=== PATIENT | female | born 1945 | race African-American/Black ===

== ENCOUNTER 2016-12-19 08:56 | Emergency (ER) | payer MEDICARE, MEDICAID ==
[~2016-12-19] VITALS: Ht 160 cm; Wt 72.6 kg
[~2016-12-19 08:56] MED LIST: ACETAMINOPHEN325 M1 ORAL; ALBUTEROL2.5 MG/3 M HHN; ASPIR 8181 MG ORAL; AZITHROMYCIN250 MG ORAL; BACTRIM DS TAB1 EAC1 ORAL; BACTRIM-DS1 EA ORAL; BENADRYL25 MG ORAL; BLEPH-105 ML OP; CIPROFLOXACIN500 M2 ORAL; DESYREL50 MG PO; FOLIC ACID1 MG ORAL; GUAIFENESIN-CO118 M1 ORAL; HYDROCODON-ACE1 EA16 PO; LEVAQUIN250 M1 ORAL; LIBRIUM25 MG ORAL; LOPRESSOR25 M1 ORAL; LOPRESSOR25 M1 PO; MACROBID100 MG ORAL; METOPROLOL SUCC25 MG ORAL; NITROFURANTOIN100 M2 ORAL; NORCO 5-325 TA1 EAC1 ORAL; NORCO 5-325 TA1 EACH ORAL; NORVASC5 MG ORAL; PERMETHRIN60 GM TOPIC; PREDNISONE20 MG ORAL; PROAIR HFA8.5 GM; PROTONIX40 MG ORAL; RANITIDINE HCL150 M2 PO; REGLAN10 MG ORAL; THIAMINE HCL100 MG ORAL; UNOBMED; VICODIN ES 7.51 EAC1 PO; VICODIN ES 7.51 EACH ORAL
[2016-12-19 09:13] VITALS: BP 167/98
[2016-12-19 09:46] LABS: APPEARANCE,URINE SLIGHTLY CLOUDY; KETONES,URINE 1+ (NEGATIVE); LEUKOCYTE ESTERASE ,URINE 3+ (NEGATIVE); NITRITE,URINE NEGATIVE (NEGATIVE); PH,URINE 5 (4.5-8.0); PROTEIN,URINE 3+ (NEGATIVE); UROBILINOGEN,URINE 1 MG/DL (0.0-1.0)
[2016-12-19 09:55] LABS: BACTERIA,URINE FEW /HPF; ICTOTEST NEGATIVE; SQUAMOUS EPITHELIAL CELL,UR FEW /LPF (NONE/OCC); WBC,URINE 40-60 /HPF (0 - 2)
[2016-12-19] MEDS ORDERED: BACTRIM DS TAB1 EAC1 ORAL (10:01)
[2016-12-19] MEDS ORDERED: VENTOLIN HFA18 GM INH (10:07)
[2016-12-19 10:15] VITALS: BP 159/99
--- NOTE | 2016-12-19 10:49 | Emergency Room Report ---
History of Present Illness General Chief Complaint: Female Urogenital Problems Source: Patient, Medical Record Present Illness HPI [id number] [employer] patient with c/o dysuria for 1-2 days. No polyuria or flank pain or fever/chills nor abd pain, nausea/vomiting, diarrhea. History of UTI Allergic to many Abx Last Urine Cx shows sensitivity to Bactrim Also requests Ventolin MDI refill. Allergies: Coded Allergies: CIPROFLOXACIN (Unverified Allergy, Unknown, 04/28/14) NITROFURANTOIN (Verified Allergy, Unknown, 02/11/16) PENICILLINS (Verified Allergy, Unknown, 02/11/16) Patient History Past Medical History: see triage record, old chart reviewed, COPD Past Surgical History: none Pertinent Family History: none Social History: Denies: alcohol use, drug use, smoking Now: No Immunizations: UTD Reviewed Nursing Documentation: PMH: Agreed, PSxH: Agreed Nursing Documentation-PMH Past Medical History: No History, Except For Hx Cardiac Problems: Yes - 'Skipped beat' Hx Hypertension: Yes Hx Pacemaker: No Hx Asthma: Yes Hx Diabetes: No Hx Cancer: No Hx Gastrointestinal Problems: No Hx Neurological Problems: Yes Hx Dizziness: Yes Hx Weakness: Yes Review of Systems All Other Systems: negative except mentioned in HPI Physical Exam Vital Signs Date Time Temp Pulse Resp B/P Pulse Ox O2 Delivery O2 Flow Rate FiO2 12/19/16 09:13 98.8 16 167/98 97 Room Air 12/19/16 09:13 72 Sp02 EP Interpretation: reviewed, abnormal General Appearance: normal inspection, well appearing, no apparent distress, alert, GCS 15, non-toxic Head: normocephalic, atraumatic Eyes: bilateral eye EOMI, bilateral eye PERRL ENT: normal ENT inspection, hearing grossly normal, normal voice Neck: normal inspection, full range of motion, supple, no bony tend Respiratory: normal inspection, lungs clear, normal breath sounds, no respiratory distress, no retraction, no accessory muscle use, no wheezing, speaking full sentences Cardiovascular #1: regular rate, rhythm, no edema Gastrointestinal: normal inspection, normal bowel sounds, non tender, soft, no guarding, no hernia Genitourinary: no CVA tenderness Musculoskeletal: normal inspection, back normal, normal range of motion, David' s Sign negative Neurologic: normal inspection, alert, oriented x3, responsive, packing machine feeder III-XII nml as tested, motor strength/tone normal, speech normal Psychiatric: normal inspection, judgement/insight normal, mood/affect normal Skin: normal inspection, normal color, no rash Medical Decision Making Diagnostic Impression: Primary Impression: UTI (urinary tract infection) Qualified Codes: N30.01 - Acute cystitis with hematuria Additional Impression: Medication refill ER Course UTI - VSS. Afebrile. Doubt urosepsis - Rx Bactrim - PMD followup Ventolin refilled - Not hypoxic - No wheezing - Not in acute asthma/COPD exacerbation Last Vital Signs Date Time Temp Pulse Resp B/P Pulse Ox O2 Delivery O2 Flow Rate FiO2 12/19/16 10:15 69 18 159/99 100 Room Air 12/19/16 09:13 98.8 Status: improved Disposition: HOME, SELF-CARE Condition: Improved Scripts Albuterol Sulfate (VENTOLIN HFA) 18 Gm Hfa.aer.ad 1 PUFF INH EVERY 6 HOURS, #18 GM 0 Refills Prov: MEGAN GARCIA M.D. 12/19/16 Trimethoprim/Sulfamethoxazole 160/800* (BACTRIM DS TABLET*) 1 Each Tablet 1 TAB ORAL Q12H for 5 Days, #10 TAB 0 Refills Prov: MEGAN GARCIA M.D. 12/19/16 Referrals: SIGIFERDO LAZCANO (PCP) Patient Instructions: Urinary Tract Infection MEGAN GARCIA M.D. Dec 19, 2016 10:49
== END 2016-12-19 10:17 | disposition home or self-care (01) ==
LOC: EMR 09:31
DX: Z76.0 Encounter for issue of repeat prescription (principal); N30.01 Acute cystitis with hematuria; Z88.0 Allergy status to penicillin; Z88.8 Allergy status to other drugs, medicaments and biological substances; J44.9 Chronic obstructive pulmonary disease, unspecified; I10 Essential (primary) hypertension
CPT/HCPCS: 81003; 87086; 87181; 99284

== ENCOUNTER 2017-04-18 16:45 | Inpatient (IN) | payer MEDICARE, MEDICAID ==
[~2017-04-18] VITALS: Ht 160 cm; Wt 56.7 kg
[~2017-04-18 16:45] MED LIST changes: +VENTOLIN HFA18 GM INH
[2017-04-18 17:10] VITALS: BP 141/69
[2017-04-18] MEDS ORDERED: Vancomycin 1 GM in NS 275 ML IV ONE (17:15)
--- NOTE | 2017-04-18 17:28 | Emergency Room Report ---
History of Present Illness General Chief Complaint: General Complaint Source: Patient, Medical Record (Franny Floyd) Present Illness HPI 71-year-old female presents to the emergency department complaining of 10 out of 10 in severity pain, swelling, erythema and increased temperature to the bilateral lower extremities primarily on the left side since yesterday. Patient denies trauma or fall. Patient reports posterior calf tenderness. Patient also reports that she has had an itchy rash with several lesions on the bilateral extremities x3 days. Patient reports chills she denies fevers. Denies lesions/rashes elsewhere on the body. Denies new medications or body washes or creams. Denies swelling of the lips, tongue , throat or airway. Denies wheezing, or shortness of breath. Denies recent travel, recent illness or ill contacts. denies blisters, oral lesions, or sloughing of the skin. Denies SOB, Dyspnea, CP, Palpitations, LOC, AMS, dizziness, Changes in Vision, Sensation, paresthesias, or a sudden severe headache. (Franny Floyd) Allergies: Coded Allergies: CIPROFLOXACIN (Unverified Allergy, Unknown, 04/28/14) NITROFURANTOIN (Verified Allergy, Unknown, 02/11/16) PENICILLINS (Verified Allergy, Unknown, 02/11/16) Patient History Past Medical History: see triage record Past Surgical History: none Pertinent Family History: none Reviewed Nursing Documentation: PMH: Agreed, PSxH: Agreed (Franny Floyd) Nursing Documentation-PMH Past Medical History: No History, Except For Hx Cardiac Problems: Yes - 'Skipped beat' Hx Hypertension: Yes Hx Pacemaker: No Hx Asthma: Yes Hx Diabetes: No Hx Cancer: No Hx Gastrointestinal Problems: No Hx Neurological Problems: Yes Hx Dizziness: Yes Hx Weakness: Yes (Franny Floyd) Review of Systems All Other Systems: negative except mentioned in HPI (Franny Floyd) Physical Exam Vital Signs Date Time Temp Pulse Resp B/P (MAP) Pulse Ox O2 Delivery O2 Flow Rate FiO2 04/18/17 16:49 100.2 86 18 159/86 97 Room Air Sp02 EP Interpretation: reviewed, normal General Appearance: no apparent distress, alert, GCS 15, non-toxic Head: normocephalic, atraumatic Eyes: bilateral eye normal inspection, bilateral eye PERRL ENT: hearing grossly normal, normal voice Neck: full range of motion Respiratory: lungs clear, normal breath sounds, speaking full sentences Cardiovascular #1: regular rate, rhythm, normal capillary refill, edema - non pitting edema bilaterally Cardiovascular #2: 1+ dorsalis pedis (R), 1+ dorsalis pedis (L) Musculoskeletal: back normal, gait/station normal, normal range of motion, inflammation - bilateral feet and ankles, erythema increased temperature to palpation, edema noted. , tender - bilateral feet, ankles, and posterior calves Neurologic: alert, oriented x3, responsive, motor strength/tone normal, sensory intact, speech normal Skin: warm/dry, well hydrated, rash - multiple small erythematous papules, non blanching on the bilateral LE's with some excoriations noted., other - erythema , increased temperature to palpation bilateral feet and ankles. Lymphatic: no adenopathy (Franny Floyd) Medical Decision Making [place] Attestation Dr. Cage is my supervising Physician whom patient management has been discussed with. (Franny FloydA.) Medicare Attestation The history of Leeroy Gamboa has been reviewed and management options for her have been examined and discussed by Ganesh Cage. I have personally examined and interviewed the patient. (GANESH CAGE M.D.) Diagnostic Impression: Primary Impression: Cellulitis and abscess of left lower extremity Additional Impressions: Cellulitis and abscess of right lower extremity UTI (urinary tract infection) Qualified Codes: N30.01 - Acute cystitis with hematuria Rash and other nonspecific skin eruption ER Course 71-year-old female presents to the emergency department complaining of 10 out of 10 in severity pain, swelling, erythema and increased temperature to the bilateral lower extremities primarily on the left side since yesterday. Patient denies trauma or fall. Patient reports posterior calf tenderness. Patient also reports that she has had an itchy rash with several lesions on the bilateral extremities x3 days. Patient reports chills she denies fevers. Denies SOB, Dyspnea, CP, Palpitations, LOC, AMS, dizziness, Changes in Vision, Sensation, paresthesias, or a sudden severe headache. Ddx considered but are not limited to cellulitis, DVT, venous stasis, CHF, fracture, d/L, Vital signs: are WNL, pt. is afebrile H&PE are most consistent with LE Cellulitis, will r/o DVT, and start abx. ORDERS: -- EK BPM NSR - no acute ST changes reviewed by Dr. Cage, his interpretation was scribed by SYDNI Floyd -CBC: unremarkable -CMP: Unremarkable -Lactic acid: WNL - Troponin: WNL -BNP: 231 -Blood cultures: Pending - CK : WNL UA: Positive for UTI -UDS: negative -US Venous Duplex bilateral extremities: Negative for DVT. ED INTERVENTIONS: -IV access - Vancomycin IV DISPOSITION: at this time pt. will be admitted to Dr. Scott for Bilateral Cellulitis Dr. Scott agreed to admit the pt. and to continue pt. care management. Labs Test 04/18/17 17:30 04/18/17 18:24 04/18/17 18:54 White Blood Count 6.4 K/UL (4.8-10.8) Red Blood Count 3.76 M/UL (4.20-5.40) Hemoglobin 11.1 G/DL (12.0-16.0) Hematocrit 37.2 % (37.0-47.0) Mean Corpuscular Volume 99 FL (80-99) Mean Corpuscular Hemoglobin 29.5 PG (27.0-31.0) Mean Corpuscular Hemoglobin Concent 29.8 G/DL (32.0-36.0) Red Cell Distribution Width 14.4 % (11.6-14.8) Platelet Count 249 K/UL (150-450) Mean Platelet Volume 6.3 FL (6.5-10.1) Neutrophils (%) (Auto) 52.3 % (45.0-75.0) Lymphocytes (%) (Auto) 34.3 % (20.0-45.0) Monocytes (%) (Auto) 10.2 % (1.0-10.0) Eosinophils (%) (Auto) 1.6 % (0.0-3.0) Basophils (%) (Auto) 1.6 % (0.0-2.0) Sodium Level 140 MMOL/L (136-145) Potassium Level 3.8 MMOL/L (3.5-5.1) Chloride Level 102 MMOL/L (98-107) Carbon Dioxide Level 25 MMOL/L (21-32) Anion Gap 13 mmol/L (5-15) Blood Urea Nitrogen 5 mg/dL (7-18) Creatinine 0.7 MG/DL (0.55-1.30) Estimat Glomerular Filtration Rate mL/min (>60) Glucose Level 103 MG/DL (74-106) Lactic Acid Level 1.10 mmol/L (0.66-2.22) Calcium Level 9.2 MG/DL (8.5-10.1) Total Bilirubin 0.6 MG/DL (0.2-1.0) Aspartate Amino Transf (AST/SGOT) 31 U/L (15-37) Alanine Aminotransferase (ALT/SGPT) 25 U/L (12-78) Alkaline Phosphatase 70 U/L (46-116) Total Creatine Kinase 127 U/L (26-308) Creatine Kinase MB 1.3 NG/ML (0.0-3.6) Creatine Kinase MB Relative Index 1.0 Troponin I 0.003 ng/mL (0.000-0.056) Pro-B-Type Natriuretic Peptide 236 pg/mL (0-125) Total Protein 8.1 G/DL (6.4-8.2) Albumin 3.4 G/DL (3.4-5.0) Globulin 4.7 g/dL Albumin/Globulin Ratio 0.7 (1.0-2.7) Urine Color Yellow Urine Appearance Cloudy Urine pH 6 (4.5-8.0) Urine Specific [place] 1.010 (1.005-1.035) Urine Protein 2+ (NEGATIVE) Urine Glucose (UA) Negative (NEGATIVE) Urine Ketones 1+ (NEGATIVE) Urine Occult Blood 3+ (NEGATIVE) Urine Nitrite Negative (NEGATIVE) Urine Bilirubin Negative (NEGATIVE) Urine Urobilinogen 4 MG/DL (0.0-1.0) Urine Leukocyte Esterase 3+ (NEGATIVE) Urine RBC 2-4 /HPF (0 - 2) Urine WBC Tntc /HPF (0 - 2) Urine Squamous Epithelial Cells Moderate /LPF (NONE/OCC) Urine Bacteria Many /HPF (NONE) Urine Opiates Screen Negative (NEGATIVE) Urine Barbiturates Screen Negative (NEGATIVE) Phencyclidine (PCP) Screen Negative (NEGATIVE) Urine Amphetamines Screen Negative (NEGATIVE) Urine Benzodiazepines Screen Negative (NEGATIVE) Urine Cocaine Screen Negative (NEGATIVE) Urine Marijuana (THC) Screen Negative (NEGATIVE) (Franny Floyd) ER Course Patient's exam is concerning for cellulitis. Please refer to my physician assistant womens volleyball coach Rubina for this and physical. I also discuss his case with Dr. Zacarias Scott. Patient will be admitted to [facility] further treatment (GANESH CAGE M.D.) EKG Diagnostic Results EP Interpretation: Dr. Cage Rate: normal Rhythm: NSR ST Segments: no acute changes ASA given to the pt in ED: No PA Scribe Text Dr. Cage's interpretation has been scribed by SYDNI Floyd. (Franny Floyd) Chest X-Ray Diagnostic Results Chest X-Ray Diagnostic Results : Chest X-Ray Ordered: Yes # of Views/Limited/Complete: 1 View Indication: Other - LE edema EP Interpretation: Yes PA Xray: Interpretation reviewed, by supervising MD, and agrees with findings. Interpretation: no consolidation, no effusion, no pneumothorax, no acute cardiopulmonary disease Impression: No acute disease Electronically Signed by: Franny Floyd PA-C (Franny Floyd) Last Vital Signs Date Time Temp Pulse Resp B/P (MAP) Pulse Ox O2 Delivery O2 Flow Rate FiO2 04/18/17 16:49 100.2 86 18 159/86 97 Room Air (Franny Floyd) Status: improved (GANESH CAGE M.D.) Disposition: ADMITTED INPATIENT Condition: Serious Franny Floyd Apr 18, 2017 17:28 GANESH CAGE M.D. Apr 18, 2017 22:02
[2017-04-18 18:00] VITALS: BP 132/71
[2017-04-18 18:06] LABS: BASOPHILS % (AUTO) 1.6 % (0.0-2.0); EOSINOPHILS % (AUTO) 1.6 % (0.0-3.0); HEMATOCRIT 37.2 % (37.0-47.0); HEMOGLOBIN 11.1 G/DL (12.0-16.0); LYMPHOCYTES % (AUTO) 34.3 % (20.0-45.0); MEAN CORPUSCULAR VOLUME 99 FL (80-99); MONOCYTES % (AUTO) 10.2 % (1.0-10.0); NEUTROPHILS % (AUTO) 52.3 % (45.0-75.0); PLATELET COUNT 249 K/UL (150-450); RED BLOOD COUNT 3.76 M/UL (4.20-5.40); RED CELL DISTRIBUTION WIDTH 14.4 % (11.6-14.8); WHITE BLOOD COUNT 6.4 K/UL (4.8-10.8)
[2017-04-18 18:37] LABS: ALANINE AMINOTRANSFERASE 25 U/L (12-78); ALBUMIN 3.4 G/DL (3.4-5.0); ALBUMIN/GLOBULIN RATIO 0.7 (1.0-2.7); ALKALINE PHOSPHATASE 70 U/L (46-116); ANION GAP 13 mmol/L (5-15); ASPARTATE AMINO TRANSFERASE 31 U/L (15-37); BILIRUBIN,TOTAL 0.6 MG/DL (0.2-1.0); BLOOD UREA NITROGEN 5 mg/dL (7-18); CALCIUM 9.2 MG/DL (8.5-10.1); CARBON DIOXIDE 25 MMOL/L (21-32); CHLORIDE 102 MMOL/L (98-107); CKMB 1.3 NG/ML (0.0-3.6); CREATINE KINASE 127 U/L (26-308); CREATININE 0.7 MG/DL (0.55-1.30); POTASSIUM 3.8 MMOL/L (3.5-5.1); SODIUM 140 MMOL/L (136-145)
[2017-04-18] MEDS ORDERED: Norco 5mg/325mg tab ORAL ONE (19:00)
[2017-04-18 19:02] LABS: APPEARANCE,URINE CLOUDY; BILIRUBIN, URINE NEGATIVE (NEGATIVE); GLUCOSE, URINE (UA) NEGATIVE (NEGATIVE); KETONES,URINE 1+ (NEGATIVE); LEUKOCYTE ESTERASE ,URINE 3+ (NEGATIVE); NITRITE,URINE NEGATIVE (NEGATIVE); PH,URINE 6 (4.5-8.0); PROTEIN,URINE 2+ (NEGATIVE); UROBILINOGEN,URINE 4 MG/DL (0.0-1.0)
[2017-04-18 19:04] LABS: COLOR,URINE YELLOW
[2017-04-18] MEDS ORDERED: Vancomycin 1gm inj IVPB ONE (19:07)
[2017-04-18 19:45] VITALS: BP 138/72
[2017-04-18] MEDS ORDERED: Zolpidem 5mg tab ORAL PRN (21:15)
[2017-04-18] MEDS ORDERED: Metoclopramide 10mg/2ml Inj IVP PRN (21:30)
[2017-04-18] MEDS ORDERED: chlordiazePOXIDE 25mg Cap ORAL PRN (21:30)
[2017-04-18] MEDS ORDERED: Piperacillin/Tazobactam 3.375 GM in D5W 110 ML IVPB ONE (22:00)
[2017-04-18] MEDS ORDERED: Levofloxacin 500mg tab ORAL ONE (22:00)
[2017-04-18 23:00] VITALS: BP 137/74
[2017-04-18] MEDS: D5 1/2NS 1,000 ML IV SCH (23:48)
[2017-04-19] VITALS: BP 120/67
[2017-04-19] MEDS: Norco 5mg/325mg tab ORAL PRN ×3 (03:00→17:18)
[2017-04-19 04:00] VITALS: BP 132/72
[2017-04-19] MEDS: Vancomycin 750mg/NS 250ml IVPB SCH ×2 (05:04→17:18)
[2017-04-19 07:45] LABS: BASOPHILS % (AUTO) 1.1 % (0.0-2.0); EOSINOPHILS % (AUTO) 2.5 % (0.0-3.0); HEMATOCRIT 34.1 % (37.0-47.0); HEMOGLOBIN 10.9 G/DL (12.0-16.0); LYMPHOCYTES % (AUTO) 22.1 % (20.0-45.0); MEAN CORPUSCULAR VOLUME 98 FL (80-99); MONOCYTES % (AUTO) 11.8 % (1.0-10.0); NEUTROPHILS % (AUTO) 62.6 % (45.0-75.0); PLATELET COUNT 225 K/UL (150-450); RED BLOOD COUNT 3.48 M/UL (4.20-5.40); RED CELL DISTRIBUTION WIDTH 14.1 % (11.6-14.8); WHITE BLOOD COUNT 6.3 K/UL (4.8-10.8)
[2017-04-19 08:32] LABS: ALANINE AMINOTRANSFERASE 19 U/L (12-78); ALBUMIN 2.7 G/DL (3.4-5.0); ALBUMIN/GLOBULIN RATIO 0.6 (1.0-2.7); ALKALINE PHOSPHATASE 64 U/L (46-116); ANION GAP 8 mmol/L (5-15); ASPARTATE AMINO TRANSFERASE 25 U/L (15-37); BILIRUBIN,TOTAL 0.8 MG/DL (0.2-1.0); BLOOD UREA NITROGEN 7 mg/dL (7-18); CALCIUM 8.6 MG/DL (8.5-10.1); CARBON DIOXIDE 27 MMOL/L (21-32); CHLORIDE 106 MMOL/L (98-107); CHOLESTEROL 120 MG/DL (< 200); CREATININE 0.7 MG/DL (0.55-1.30); GAMMA GLUTAMYL TRANSPEPTIDASE 74 U/L (5-85); HDL CHOLESTEROL 80 MG/DL (40-60); PHOSPHORUS 4.1 MG/DL (2.5-4.9); POTASSIUM 3.5 MMOL/L (3.5-5.1); SODIUM 141 MMOL/L (136-145); TRIGLYCERIDES 29 MG/DL (0-200)
[2017-04-19] MEDS: Docusate 100mg cap ORAL SCH ×4 (08:41→21:00)
[2017-04-19] MEDS: Heparin 5000 units/ml inj SUBQ SCH ×2 (08:42→22:02)
[2017-04-19 08:44] VITALS: BP 130/76
--- NOTE | 2017-04-19 09:55 | History & Physical ---
History and Physical History & Physicial Dictation # [id number] SIGIFREDO LAZCANO Apr 19, 2017 09:55
--- NOTE | 2017-04-19 09:55 | History & Physical ---
History and Physical History & Physicial Dictation # [id number] SIGIFREDO LAZCANO Apr 19, 2017 09:55
--- NOTE | 2017-04-19 09:55 | History & Physical ---
History and Physical History & Physicial Dictation # [id number] SIGIFREDO LAZCANO Apr 19, 2017 09:55
--- NOTE | 2017-04-19 10:24 | Diagnostic Imaging Report ---
Indication: PAIN Technique: One view of the chest Comparison: 02/10/2016 Findings: The lungs and pleural spaces are clear. Heart size is normal. Aorta is tortuous. Findings are unchanged Impression: No acute process This agrees with the preliminary interpretation provided by the emergency room physician
--- NOTE | 2017-04-19 10:53 | Wound Care Consultation ---
Wound Assessment Wound Assessment : Wound Number: 1 Wound Present on Admission: Yes New Wound: No Status Change of Wound: No Wound Location Body Site Modif: left, right Wound Location Body Site: leg - thighs and foot Wound Type: discoloration - sacttered maroon/purpel discoloration with inflammation and tenderness Isaac Test: Does not Isaac Edema Degree: 2+ indent readily Percent of Wound Purple/Maroon: 100 Wound Drainage Amount: None Wound Drainage Odor: None/Absent Tissue Surrounding Wound: Erythemic Wound General Appearance: Reddened - purple and maroon Wound Comment #1 Both legs, thigh, buttocks and foot with scattered purplish/maroon discoloration, Skin warm to touch. Noted inflammation and tenderness on both lower legs. Recommendation -Offload both heels -Elevate both lower legs -Keep clean and dry -Optimize nutrition -Assess and f/u with MD for any changes SUSIE NESBITT RN Apr 19, 2017 10:53
[2017-04-19] MEDS ORDERED: Bactrim DS (160mg/800mg) tab ORAL SCH (11:00)
[2017-04-19] MEDS: Thiamine 100mg tab ORAL SCH (11:46)
[2017-04-19 12:14] VITALS: BP 146/97
--- NOTE | 2017-04-19 12:39 | Diagnostic Imaging Report ---
APPROVED REPORT CPT Code: 17173 Present Symptoms Lower Extremity Pain: Bilateral Lower Extremity Edema: Bilateral BILATERAL: Imaging reveals a patent deep venous system bilaterally. There is no evidence of thrombus within the femoral, popliteal or tibial segments. The greater saphenous veins are also within normal limits. Doppler indicates normal spontaneous flow within these segments. The calf veins were not well visualized bilaterally. Incidental finding: Prominent left inguinal lymph node measuring 2.5 cm x 0.7 cm x 1.8 cm.
--- NOTE | 2017-04-19 12:39 | Diagnostic Imaging Report ---
APPROVED REPORT CPT Code: 02011 Present Symptoms Lower Extremity Pain: Bilateral Lower Extremity Edema: Bilateral BILATERAL: Imaging reveals a patent deep venous system bilaterally. There is no evidence of thrombus within the femoral, popliteal or tibial segments. The greater saphenous veins are also within normal limits. Doppler indicates normal spontaneous flow within these segments. The calf veins were not well visualized bilaterally. Incidental finding: Prominent left inguinal lymph node measuring 2.5 cm x 0.7 cm x 1.8 cm.
--- NOTE | 2017-04-19 12:39 | Diagnostic Imaging Report ---
APPROVED REPORT CPT Code: 39779 Present Symptoms Lower Extremity Pain: Bilateral Lower Extremity Edema: Bilateral BILATERAL: Imaging reveals a patent deep venous system bilaterally. There is no evidence of thrombus within the femoral, popliteal or tibial segments. The greater saphenous veins are also within normal limits. Doppler indicates normal spontaneous flow within these segments. The calf veins were not well visualized bilaterally. Incidental finding: Prominent left inguinal lymph node measuring 2.5 cm x 0.7 cm x 1.8 cm.
[2017-04-19] MEDS: Aztreonam Inj 1 GM in D5W 55 ML IVPB SCH ×2 (15:32→22:01)
[2017-04-19 16:15] VITALS: BP 131/87
[2017-04-19] MEDS: D5 1/2NS 1,000 ML IV SCH (17:15)
--- NOTE | 2017-04-19 18:00 | History and Physical Report ---
DATE OF ADMISSION: 04/18/2017 HISTORY OF PRESENT ILLNESS: The patient is known to me, as she is being followed in my office even though very infrequently. The patient is 71-year-old, comes in to emergency room department with pain, swelling, erythema and increased temperature of the bilateral lower extremities, mostly on the left side. The patient denies any trauma or fall. The patient also complains of itchy rash on the lower leg for the past three days. The patient denies using any new medications or any swelling of her face or her tongue. No shortness of breath and no wheeze even though the patient has history of asthma. PAST HISTORY: Significant for hypertension, alcohol abuse, alcoholic liver damage, history of urine tract infection, mild depression and chronic back and leg pain. MEDICATIONS: The patient was supposed to be using includes Lopressor, Protonix, thiamine, Reglan, [place], folic acid and p.r.n. Librium. ALLERGIES: Cipro, nitrofurantoin and penicillin. PHYSICAL EXAMINATION: GENERAL: Awake, not in any distress. VITAL SIGNS: On examination today, the patient pulse rate is 60, respiratory rate is 18, and blood pressure 130/76, and T-max was 99.1 degrees. The patient is afebrile now. HEENT: Head is normocephalic. Sclerae not icteric. NECK: Supple. LUNGS: Rare expiratory wheeze and rhonchi. HEART: Regular. Occasional irregular beats. ABDOMEN: Slightly obese, mild generalized tenderness. EXTREMITIES: Lower extremities, the patient has a rash and erythema and swelling of bilateral lower extremities. Warm to touch with calf tenderness. LABORATORY AND DIAGNOSTIC DATA: Hemoglobin 11.1 and white blood cells 6.4. Electrolytes normal. Urine toxicology is negative and urinalysis 3+ leukocyte esterase and too numerous to count bacteria. IMPRESSION: 1. Cellulitis and abscess of the both lower extremities, left more than right. 2. Urinary tract infection. 3. Rash. 4. Earlier mentioned past history conditions, which includes alcohol abuse, hypertension, mild depression and chronic pain. PLAN: At this point, the patient was given vancomycin. We will start the patient on p.o. Bactrim, local care, slow hydration, stool softener, pain medication, leg elevation and also obtain the results of the duplex of the lower extremities and according to how the patient's condition evolves, we make the proper changes in our future management. Zacarias Scott M.D. DR: PALMA JOB#: [id number] CC:
[2017-04-19 20:00] VITALS: BP 129/82
[2017-04-20] VITALS: BP 149/80
--- NOTE | 2017-04-20 00:30 | Consultation ---
DATE OF CONSULTATION: 04/19/2017 INFECTIOUS DISEASES CONSULTATION PRIMARY ATTENDING PHYSICIAN: Zacarias Scott M.D. REASON FOR CONSULTATION: UTI and cellulitis of lower extremities. HISTORY OF PRESENT ILLNESS: This is a 71-year-old female, who is homeless, admitted yesterday complaining of pain, swelling, and developing rash in the lower extremities. The patient states that she used another person's pants. The symptoms started very fast overnight. She had fever of 100.2 degrees in the ER. PAST MEDICAL HISTORY: Significant for alcohol abuse, fatty liver, chronic back pain, hiatal hernia, diverticulosis, and gallstones. MEDICATIONS: Bactrim, Prevacid, vitamin B1, heparin, Colace, vancomycin, Librium, Reglan, Tylenol, [place], and clonidine. ALLERGIES: Allergic to Cipro, nitrofurantoin, and penicillin. SOCIAL HISTORY: She is homeless, lives in [facility]. Drinks one or two beers a day. Denies alcohol or drug abuse. Not . REVIEW OF SYSTEMS: No fever and no chills at the time of examination. No nausea. No vomiting. She has sometimes problem passing urine with dysuria and frequency. She has pain in lower extremities. PHYSICAL EXAMINATION: VITAL SIGNS: Temperature 97.7 degrees, pulse 68, and blood pressure 146/97. GENERAL APPEARANCE: No acute distress. HEAD AND NECK: [place] conjunctiva. HEART: S1 and S2 regular. LUNGS: Clear. ABDOMEN: Soft and nontender. No organomegaly. EXTREMITIES: She has edema of lower extremities bilaterally and erythema that is confluent in berrios area. NEUROLOGIC: She is awake, alert, and oriented x3. No focal signs. SKIN: There is separate area of erythema and rash in lower extremities without any discharge. LABORATORY AND DIAGNOSTIC DATA: WBC 6.3, hemoglobin 10.9, hematocrit 34.1, and platelets 225,000. Sodium 141, potassium 3.5, chloride 105, bicarbonate 27, BUN 7, creatinine 0.7, and glucose 105. Albumin 2.7. LFTs are in normal limits. Chest x-ray, no acute process. Venous duplex did not show any DVT of legs. IMPRESSION: 1. Cellulitis of lower extremity, likely with rapidly growing organism that starts very fast. 2. Pyuria and bacteruria. Urine culture growing gram-negative rods. 3. Hypertension. 4. Chronic alcohol abuse. 5. Homeless. 6. Penicillin, nitrofurantoin, and Cipro allergy. RECOMMENDATION: Continue with IV vancomycin. We will change Bactrim to Azactam. We will follow up the cultures. At the end of my exam, I thank Dr. Scott for involving me in the care of this patient. Elliott Treviño M.D. DR: Rigoberto JOB#: [id number] CC:
[2017-04-20] MEDS: D5 1/2NS 1,000 ML IV SCH (03:43)
[2017-04-20 04:00] VITALS: BP 131/84
[2017-04-20] MEDS: Aztreonam Inj 1 GM in D5W 55 ML IVPB SCH ×3 (05:10→21:46)
[2017-04-20] MEDS: Vancomycin 750mg/NS 250ml IVPB SCH ×2 (05:57→17:50)
[2017-04-20 08:00] VITALS: BP 121/69
[2017-04-20] MEDS: Docusate 100mg cap ORAL SCH ×3 (08:23→18:14)
[2017-04-20] MEDS: Norco 5mg/325mg tab ORAL PRN ×2 (08:24→15:24)
[2017-04-20] MEDS: Thiamine 100mg tab ORAL SCH (08:24)
[2017-04-20] MEDS: Heparin 5000 units/ml inj SUBQ SCH ×2 (08:25→20:15)
[2017-04-20] MEDS ORDERED: Tubing IV Secondary IV ONE (09:56)
[2017-04-20] MEDS ORDERED: D5 1/2NS 1000ml IV ONE (09:56)
--- NOTE | 2017-04-20 11:20 | Diagnostic Imaging Report ---
Indication: COUGH Technique: One view of the chest Comparison: 04/18/2017 Findings: Inspiration is suboptimal. The heart is borderline enlarged. Lungs and pleural spaces are clear. The aorta is tortuous. Findings are unchanged Impression: No acute process
--- NOTE | 2017-04-20 12:21 | General Progress Note ---
Assessment/Plan Status: unchanged Assessment/Plan 1. Cellulitis of lower extremity, likely with rapidly growing organism that starts very fast. 2. Pyuria and bacteruria. Urine culture growing gram-negative rods. 3. Hypertension. 4. Chronic alcohol abuse. 5. Homeless. 6. Penicillin, nitrofurantoin, and Cipro allergy. Plan: Antibiotics per ID Leg elevation low dose lasix Dc in 2 days? Subjective ROS Limited/Unobtainable: No Constitutional: Reports: malaise Allergies: Coded Allergies: CIPROFLOXACIN (Unverified Allergy, Unknown, 04/28/14) NITROFURANTOIN (Verified Allergy, Unknown, 02/11/16) PENICILLINS (Verified Allergy, Unknown, 02/11/16) Objective Last 24 Hour Vital Signs Date Time Temp Pulse Resp B/P (MAP) Pulse Ox O2 Delivery O2 Flow Rate FiO2 04/20/17 08:00 98.1 58 15 121/69 97 Room Air 04/20/17 04:00 97.7 56 20 131/84 99 Room Air 04/20/17 00:00 97.7 62 20 149/80 99 04/19/17 20:00 97.0 62 20 129/82 97 Room Air 04/19/17 18:17 97.5 04/19/17 16:15 97.5 72 21 131/87 97 Room Air Laboratory Tests 04/20/17 03:50: Vancomycin Level Trough 9.7 Height (Feet): 5 Height (Inches): 3.00 Weight (Pounds): 125 General Appearance: no apparent distress Cardiovascular: normal rate Respiratory/Chest: lungs clear Abdomen: soft Skin: other - LEs swollen , edematous, warm , Objective no other changes SIGIFREDO LAZCANO Apr 20, 2017 12:21
--- NOTE | 2017-04-20 12:22 | Infectious Diseases Prog Note ---
Assessment/Plan Assessment/Plan antibiotics : vancomycin iv, aztreonam A 1. e.coli UTI 2. left leg cellulitis 3. fever improving 4. HTN P 1. continue vancomycin iv, aztreonam 2. will follow up cultures Subjective Constitutional: Denies: fever, chills Respiratory: Reports: shortness of breath, productive cough Gastrointestinal/Abdominal: Denies: nausea, vomiting, diarrhea Musculoskeletal: Reports: pain Allergies: Coded Allergies: CIPROFLOXACIN (Unverified Allergy, Unknown, 04/28/14) NITROFURANTOIN (Verified Allergy, Unknown, 02/11/16) PENICILLINS (Verified Allergy, Unknown, 02/11/16) Objective Vital Signs Last 24 Hour Vital Signs Date Time Temp Pulse Resp B/P (MAP) Pulse Ox O2 Delivery O2 Flow Rate FiO2 04/20/17 08:00 98.1 58 15 121/69 97 Room Air 04/20/17 04:00 97.7 56 20 131/84 99 Room Air 04/20/17 00:00 97.7 62 20 149/80 99 04/19/17 20:00 97.0 62 20 129/82 97 Room Air 04/19/17 18:17 97.5 04/19/17 16:15 97.5 72 21 131/87 97 Room Air Height (Feet): 5 Height (Inches): 3.00 Weight (Pounds): 125 Respiratory/Chest: lungs clear Cardiovascular: normal rate, regular rhythm, no gallop/murmur Abdomen: soft, non tender Extremities: other - + edema, left leg erythema Microbiology Date/Time Source Procedure Growth Status 04/18/17 17:40 Blood Blood Culture - Preliminary NO GROWTH AFTER 24 HOURS Resulted 04/18/17 17:20 Blood Blood Culture - Preliminary NO GROWTH AFTER 24 HOURS Resulted 04/18/17 19:00 Nasal Nares MRSA Culture - Final Staphylococcus Aureus - Mrsa Complete 04/18/17 18:24 Urine,Clean Catch Urine Culture - Final Escherichia Coli Complete Laboratory Tests Test 04/20/17 03:50 Vancomycin Level Trough 9.7 ug/mL (5.0-12.0) ANNELISE FARRAR Apr 20, 2017 12:22
[2017-04-20 12:54] VITALS: BP 149/75
[2017-04-20 16:00] VITALS: BP 139/79
[2017-04-20 20:00] VITALS: BP 145/77
[2017-04-21] VITALS: BP 151/73
[2017-04-21 04:00] VITALS: BP 160/93
[2017-04-21] MEDS: Vancomycin 750mg/NS 250ml IVPB SCH ×2 (05:14→17:47)
[2017-04-21] MEDS: Norco 5mg/325mg tab ORAL PRN ×2 (05:31→15:49)
[2017-04-21] MEDS: Aztreonam Inj 1 GM in D5W 55 ML IVPB SCH ×3 (06:52→21:29)
[2017-04-21 08:08] VITALS: BP 120/74
--- NOTE | 2017-04-21 08:47 | Infectious Diseases Prog Note ---
Assessment/Plan Assessment/Plan A: 1. E.coli UTI 2. left leg cellulitis 3. fever resolved 4. HPN P: Continue Azactam & Vancomycin for now Can be discharged with PO Nitrofurantoin & Doxycycline Subjective ROS Limited/Unobtainable: No Respiratory: Reports: no symptoms Cardiovascular: Reports: no symptoms Gastrointestinal/Abdominal: Reports: no symptoms Genitourinary: Reports: no symptoms Musculoskeletal: Reports: pain, other - in lef berrios Allergies: Coded Allergies: CIPROFLOXACIN (Unverified Allergy, Unknown, 04/28/14) NITROFURANTOIN (Verified Allergy, Unknown, 02/11/16) PENICILLINS (Verified Allergy, Unknown, 02/11/16) Objective Vital Signs Last 24 Hour Vital Signs Date Time Temp Pulse Resp B/P (MAP) Pulse Ox O2 Delivery O2 Flow Rate FiO2 04/21/17 08:08 98.4 54 20 120/74 97 Room Air 04/21/17 05:30 160/93 04/21/17 04:00 97.3 58 19 160/93 99 Room Air 04/21/17 00:00 97.9 58 19 151/73 99 Room Air 04/20/17 20:00 97.6 61 20 145/77 100 Room Air 04/20/17 16:00 98.1 62 18 139/79 100 Room Air 04/20/17 12:54 98.2 56 18 149/75 100 Room Air Height (Feet): 5 Height (Inches): 3.00 Weight (Pounds): 125 General Appearance: no acute distress HEENT: mucous membranes moist Respiratory/Chest: lungs clear Cardiovascular: normal rate Abdomen: soft, non tender Extremities: other - periankle edema more in left side Skin: rash, other - erythema in left berrios decreased, bite flores in lower extremities Neurologic/Psychiatric: alert, oriented x 3, responsive Microbiology Date/Time Source Procedure Growth Status 04/18/17 17:40 Blood Blood Culture - Preliminary NO GROWTH AFTER 48 HOURS Resulted 04/18/17 17:20 Blood Blood Culture - Preliminary NO GROWTH AFTER 48 HOURS Resulted 04/18/17 19:00 Nasal Nares MRSA Culture - Final Staphylococcus Aureus - Mrsa Complete 04/18/17 18:24 Urine,Clean Catch Urine Culture - Final Escherichia Coli Complete Laboratory Tests Test 04/20/17 16:30 Vancomycin Level Trough 9.7 ug/mL (5.0-12.0) Current Medications Medications (Trade) Dose Ordered Sig/Homero Route PRN Reason Start Time Stop Time Status Last Admin Dose Admin Acetaminophen (Tylenol) 650 mg Q6H PRN ORAL Mild Pain/Temp > 100.5 04/18/17 21:30 05/18/17 21:29 04/20/17 20:12 Acetaminophen/ Hydrocodone Bitart ([place] 5/325) 1 tab Q6H PRN ORAL For Pain 04/18/17 21:15 04/25/17 21:14 04/21/17 05:31 Aztreonam 1 gm/ Dextrose 55 ml @ 110 mls/hr Q8HR IVPB 04/19/17 14:00 04/26/17 13:59 04/21/17 06:52 Chlordiazepoxide (Librium) 25 mg Q6H PRN ORAL Agitation 04/18/17 21:30 04/25/17 21:29 Clonidine HCl (Catapres) 0.1 mg Q4H PRN ORAL For High Blood Pressure 04/18/17 21:15 05/18/17 21:14 04/21/17 05:30 Diphenhydramine HCl (Benadryl) 25 mg Q6H PRN ORAL Itching 04/20/17 12:15 05/20/17 12:14 Docusate Sodium (Colace) 100 mg THREE TIMES A DAY ORAL 04/20/17 13:00 05/19/17 08:59 04/20/17 18:14 Heparin Sodium (Porcine) (Heparin 5000 units/ml) 5,000 units EVERY 12 HOURS SUBQ 04/19/17 09:00 05/19/17 08:59 04/20/17 20:15 Lansoprazole (Prevacid) 30 mg DAILY ORAL 04/19/17 11:00 05/19/17 10:59 04/20/17 08:24 Metoclopramide HCl (Reglan) 10 mg Q6H PRN IVP Nausea & Vomiting 04/18/17 21:30 05/18/17 21:29 Potassium Chloride (KCl 10% 40mEq Oral solution) 40 meq DAILY ORAL 04/21/17 09:00 05/21/17 08:59 Thiamine HCl (Vitamin B1) 100 mg DAILY ORAL 04/19/17 11:00 05/19/17 10:59 04/20/17 08:24 Vancomycin HCl (Vanco rx to dose) 1 ea DAILY PRN MISC Per rx protocol 04/18/17 21:15 05/18/17 21:14 Vancomycin/Sodium Chloride 250 ml @ 166.667 mls/hr Q12HR@0500,1700 IVPB 04/19/17 05:00 04/24/17 04:59 04/21/17 05:14 Zolpidem Tartrate (Ambien) 5 mg HSPRN PRN ORAL Insomnia 04/18/17 21:15 04/25/17 21:14 JEANMARIE DELUCA Apr 21, 2017 08:47
[2017-04-21] MEDS: Thiamine 100mg tab ORAL SCH (09:04)
[2017-04-21] MEDS: Docusate 100mg cap ORAL SCH ×3 (09:04→17:47)
[2017-04-21] MEDS: KCl 10% 40mEq/30ml liquid ORAL SCH (09:04)
[2017-04-21] MEDS: Heparin 5000 units/ml inj SUBQ SCH ×2 (09:11→21:31)
[2017-04-21] MEDS ORDERED: NS 275ml ONE (09:44)
[2017-04-21] MEDS ORDERED: D5NS 1000ml IV ONE (09:44)
[2017-04-21 10:24] LABS: BASOPHILS % (AUTO) 2.2 % (0.0-2.0); HEMATOCRIT 35.3 % (37.0-47.0); HEMOGLOBIN 11.6 G/DL (12.0-16.0); LYMPHOCYTES % (AUTO) 32.1 % (20.0-45.0); MEAN CORPUSCULAR VOLUME 98 FL (80-99); MONOCYTES % (AUTO) 12.7 % (1.0-10.0); NEUTROPHILS % (AUTO) 49.1 % (45.0-75.0); PLATELET COUNT 260 K/UL (150-450); RED BLOOD COUNT 3.61 M/UL (4.20-5.40); RED CELL DISTRIBUTION WIDTH 14.2 % (11.6-14.8); WHITE BLOOD COUNT 5.2 K/UL (4.8-10.8)
[2017-04-21 10:38] LABS: ALANINE AMINOTRANSFERASE 20 U/L (12-78); ALBUMIN 2.7 G/DL (3.4-5.0); ALBUMIN/GLOBULIN RATIO 0.6 (1.0-2.7); ALKALINE PHOSPHATASE 66 U/L (46-116); ANION GAP 5 mmol/L (5-15); ASPARTATE AMINO TRANSFERASE 28 U/L (15-37); BILIRUBIN,TOTAL 0.2 MG/DL (0.2-1.0); BLOOD UREA NITROGEN 7 mg/dL (7-18); CALCIUM 9.1 MG/DL (8.5-10.1); CARBON DIOXIDE 29 MMOL/L (21-32); CHLORIDE 104 MMOL/L (98-107); CREATININE 0.7 MG/DL (0.55-1.30); PHOSPHORUS 3.3 MG/DL (2.5-4.9); POTASSIUM 4.7 MMOL/L (3.5-5.1); SODIUM 138 MMOL/L (136-145)
--- NOTE | 2017-04-21 12:01 | General Progress Note ---
Assessment/Plan Status: stable Assessment/Plan 1. Cellulitis of lower extremity, likely with rapidly growing organism that starts very fast. 2. Pyuria and bacteruria. Urine culture growing gram-negative rods. 3. Hypertension. 4. Chronic alcohol abuse. 5. Homeless. 6. Penicillin, nitrofurantoin, and Cipro allergy. Plan: Antibiotics per ID Leg elevation low dose lasix Dc in am? Patient agrees to go to ECF Subjective ROS Limited/Unobtainable: No Allergies: Coded Allergies: CIPROFLOXACIN (Unverified Allergy, Unknown, 04/28/14) NITROFURANTOIN (Verified Allergy, Unknown, 02/11/16) PENICILLINS (Verified Allergy, Unknown, 02/11/16) Objective Last 24 Hour Vital Signs Date Time Temp Pulse Resp B/P (MAP) Pulse Ox O2 Delivery O2 Flow Rate FiO2 04/21/17 08:08 98.4 54 20 120/74 97 Room Air 04/21/17 05:30 160/93 04/21/17 04:00 97.3 58 19 160/93 99 Room Air 04/21/17 00:00 97.9 58 19 151/73 99 Room Air 04/20/17 20:00 97.6 61 20 145/77 100 Room Air 04/20/17 16:00 98.1 62 18 139/79 100 Room Air 04/20/17 12:54 98.2 56 18 149/75 100 Room Air Laboratory Tests 04/20/17 16:30: Vancomycin Level Trough 9.7 04/21/17 10:00: White Blood Count 5.2, Red Blood Count 3.61L, Hemoglobin 11.6L, Hematocrit 35.3L , Mean Corpuscular Volume 98, Mean Corpuscular Hemoglobin 32.3H, Mean Corpuscular Hemoglobin Concent 32.9, Red Cell Distribution Width 14.2, Platelet Count 260, Mean Platelet Volume 6.5, Neutrophils (%) (Auto) 49.1, Lymphocytes (% ) (Auto) 32.1, Monocytes (%) (Auto) 12.7H, Eosinophils (%) (Auto) 4.0H, Basophils (%) (Auto) 2.2H, Sodium Level 138, Potassium Level 4.7, Chloride Level 104, Carbon Dioxide Level 29, Anion Gap 5, Blood Urea Nitrogen 7, Creatinine 0.7, Estimat Glomerular Filtration Rate , Glucose Level 98, Uric Acid 3.4, Calcium Level 9.1, Phosphorus Level 3.3, Magnesium Level 1.4L, Total Bilirubin 0.2, Aspartate Amino Transf (AST/SGOT) 28, Alanine Aminotransferase ( ALT/SGPT) 20, Alkaline Phosphatase 66, C-Reactive Protein, Quantitative 2.8H, Total Protein 7.5, Albumin 2.7L, Globulin 4.8, Albumin/Globulin Ratio 0.6L Height (Feet): 5 Height (Inches): 3.00 Weight (Pounds): 125 General Appearance: no apparent distress Cardiovascular: normal rate Respiratory/Chest: lungs clear Skin: other - LE less edema , less erythema Objective no other changes SIGIFREDO LAZCANO Apr 21, 2017 12:01
[2017-04-21 12:15] VITALS: BP 119/52
[2017-04-21 16:00] VITALS: BP 128/75
--- NOTE | 2017-04-21 18:45 | Cardiology Report ---
APPROVED REPORT EKG Measurement Heart [id number] [place] 170P53 [id number] Normal sinus rhythm Normal ECG
--- NOTE | 2017-04-21 18:45 | Cardiology Report ---
APPROVED REPORT EKG Measurement Heart [id number] [place] 170P53 [id number] Normal sinus rhythm Normal ECG
--- NOTE | 2017-04-21 18:45 | Cardiology Report ---
APPROVED REPORT EKG Measurement Heart [id number] Normal sinus rhythm Normal ECG
[2017-04-21 20:00] VITALS: BP 138/82
[2017-04-22] VITALS: BP 159/87
[2017-04-22] MEDS: Norco 5mg/325mg tab ORAL PRN ×4 (00:52→22:09)
[2017-04-22 04:00] VITALS: BP 139/80
[2017-04-22] MEDS: Vancomycin 750mg/NS 250ml IVPB SCH ×2 (04:20→17:33)
[2017-04-22] MEDS: Aztreonam Inj 1 GM in D5W 55 ML IVPB SCH ×3 (06:19→21:59)
[2017-04-22 08:00] VITALS: BP 133/76
[2017-04-22] MEDS: Heparin 5000 units/ml inj SUBQ SCH ×2 (08:59→21:00)
[2017-04-22] MEDS: KCl 10% 40mEq/30ml liquid ORAL SCH (09:00)
--- NOTE | 2017-04-22 09:00 | Infectious Diseases Prog Note ---
Assessment/Plan Assessment/Plan A: 1. E.coli UTI 2. left leg cellulitis 3. fever resolved 4. 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 P: Continue Azactam & Vancomycin for now Can be discharged with PO Doxycycline for 7 days Subjective ROS Limited/Unobtainable: No HEENT: Reports: no symptoms Respiratory: Reports: no symptoms Cardiovascular: Reports: no symptoms Gastrointestinal/Abdominal: Reports: no symptoms Genitourinary: Reports: no symptoms Allergies: Coded Allergies: CIPROFLOXACIN (Unverified Allergy, Unknown, 04/28/14) NITROFURANTOIN (Verified Allergy, Unknown, 02/11/16) PENICILLINS (Verified Allergy, Unknown, 02/11/16) Objective Vital Signs Last 24 Hour Vital Signs Date Time Temp Pulse Resp B/P (MAP) Pulse Ox O2 Delivery O2 Flow Rate FiO2 04/22/17 04:00 97.6 56 18 139/80 99 Room Air 04/22/17 00:00 97.5 54 19 159/87 100 Room Air 04/21/17 20:00 97.9 62 20 138/82 100 Room Air 04/21/17 16:00 98.0 58 20 128/75 99 Room Air 04/21/17 12:15 98.7 54 20 119/52 99 Room Air Height (Feet): 5 Height (Inches): 3.00 Weight (Pounds): 125 General Appearance: no acute distress HEENT: mucous membranes moist Respiratory/Chest: lungs clear Cardiovascular: normal rate Abdomen: normal bowel sounds, soft, non tender Extremities: other - mild edema & tenderness in left berrios Skin: rash, other - resolving Neurologic/Psychiatric: alert, oriented x 3, responsive Laboratory Tests Test 04/21/17 10:00 White Blood Count 5.2 K/UL (4.8-10.8) Red Blood Count 3.61 M/UL (4.20-5.40) L Hemoglobin 11.6 G/DL (12.0-16.0) L Hematocrit 35.3 % (37.0-47.0) L Mean Corpuscular Volume 98 FL (80-99) Mean Corpuscular Hemoglobin 32.3 PG (27.0-31.0) H Mean Corpuscular Hemoglobin Concent 32.9 G/DL (32.0-36.0) Red Cell Distribution Width 14.2 % (11.6-14.8) Platelet Count 260 K/UL (150-450) Mean Platelet Volume 6.5 FL (6.5-10.1) Neutrophils (%) (Auto) 49.1 % (45.0-75.0) Lymphocytes (%) (Auto) 32.1 % (20.0-45.0) Monocytes (%) (Auto) 12.7 % (1.0-10.0) H Eosinophils (%) (Auto) 4.0 % (0.0-3.0) H Basophils (%) (Auto) 2.2 % (0.0-2.0) H Sodium Level 138 MMOL/L (136-145) Potassium Level 4.7 MMOL/L (3.5-5.1) Chloride Level 104 MMOL/L (98-107) Carbon Dioxide Level 29 MMOL/L (21-32) Anion Gap 5 mmol/L (5-15) Blood Urea Nitrogen 7 mg/dL (7-18) Creatinine 0.7 MG/DL (0.55-1.30) Estimat Glomerular Filtration Rate mL/min (>60) Glucose Level 98 MG/DL (74-106) Uric Acid 3.4 MG/DL (2.6-7.2) Calcium Level 9.1 MG/DL (8.5-10.1) Phosphorus Level 3.3 MG/DL (2.5-4.9) Magnesium Level 1.4 MG/DL (1.8-2.4) L Total Bilirubin 0.2 MG/DL (0.2-1.0) Aspartate Amino Transf (AST/SGOT) 28 U/L (15-37) Alanine Aminotransferase (ALT/SGPT) 20 U/L (12-78) Alkaline Phosphatase 66 U/L (46-116) C-Reactive Protein, Quantitative 2.8 mg/dL (0.00-0.90) H Total Protein 7.5 G/DL (6.4-8.2) Albumin 2.7 G/DL (3.4-5.0) L Globulin 4.8 g/dL Albumin/Globulin Ratio 0.6 (1.0-2.7) L Current Medications Medications (Trade) Dose Ordered Sig/Homero Route PRN Reason Start Time Stop Time Status Last Admin Dose Admin Acetaminophen (Tylenol) 650 mg Q6H PRN ORAL Mild Pain/Temp > 100.5 10/26/17 21:30 05/18/17 21:29 04/20/17 20:12 Acetaminophen/ Hydrocodone Bitart ([place] 5/325) 1 tab Q6H PRN ORAL For Pain 04/18/17 21:15 04/25/17 21:14 04/22/17 00:52 Aztreonam 1 gm/ Dextrose 55 ml @ 110 mls/hr Q8HR IVPB 04/19/17 14:00 04/26/17 13:59 04/22/17 06:19 Clonidine HCl (Catapres) 0.1 mg Q4H PRN ORAL For High Blood Pressure 04/18/17 21:15 05/18/17 21:14 04/21/17 05:30 Diphenhydramine HCl (Benadryl) 25 mg Q6H PRN ORAL Itching 04/20/17 12:15 05/20/17 12:14 Docusate Sodium (Colace) 100 mg THREE TIMES A DAY ORAL 04/20/17 13:00 05/19/17 08:59 04/21/17 17:47 Heparin Sodium (Porcine) (Heparin 5000 units/ml) 5,000 units EVERY 12 HOURS SUBQ 04/19/17 09:00 05/19/17 08:59 04/21/17 21:31 Metoclopramide HCl (Reglan) 10 mg Q6H PRN IVP Nausea & Vomiting 04/18/17 21:30 05/18/17 21:29 Pantoprazole (Protonix) 40 mg DAILY ORAL 04/22/17 09:00 05/22/17 08:59 Potassium Chloride (KCl 10% 40mEq Oral solution) 40 meq DAILY ORAL 04/21/17 09:00 05/21/17 08:59 04/21/17 09:04 Thiamine HCl (Vitamin B1) 100 mg DAILY ORAL 04/19/17 11:00 05/19/17 10:59 04/21/17 09:04 Vancomycin HCl (Vanco rx to dose) 1 ea DAILY PRN MISC Per rx protocol 04/18/17 21:15 05/18/17 21:14 Vancomycin/Sodium Chloride 250 ml @ 166.667 mls/hr Q12HR@0500,1700 IVPB 04/19/17 05:00 04/24/17 04:59 04/22/17 04:20 Zolpidem Tartrate (Ambien) 5 mg HSPRN PRN ORAL Insomnia 04/18/17 21:15 04/25/17 21:14 JEANMARIE DELUCA Apr 22, 2017 09:00
[2017-04-22] MEDS: Docusate 100mg cap ORAL SCH ×3 (09:02→17:32)
[2017-04-22] MEDS: Thiamine 100mg tab ORAL SCH (09:02)
[2017-04-22 12:00] VITALS: BP 131/77
[2017-04-22] MEDS ORDERED: Tubing IV Secondary IV ONE (13:53)
[2017-04-22 16:00] VITALS: BP 142/88
--- NOTE | 2017-04-22 16:23 | General Progress Note ---
Assessment/Plan Status: stable Assessment/Plan 1. Cellulitis of lower extremity, likely with rapidly growing organism that starts very fast. 2. Pyuria and bacteruria. Urine culture growing gram-negative rods. 3. Hypertension. 4. Chronic alcohol abuse. 5. Homeless. 6. Penicillin, nitrofurantoin, and Cipro allergy. Plan: Antibiotics per ID Leg elevation low dose lasix Dc in am? Patient agrees to go to ECF DC in am on po Doxy Subjective ROS Limited/Unobtainable: No Constitutional: Reports: malaise Allergies: Coded Allergies: CIPROFLOXACIN (Unverified Allergy, Unknown, 04/28/14) NITROFURANTOIN (Verified Allergy, Unknown, 02/11/16) PENICILLINS (Verified Allergy, Unknown, 02/11/16) Objective Last 24 Hour Vital Signs Date Time Temp Pulse Resp B/P (MAP) Pulse Ox O2 Delivery O2 Flow Rate FiO2 04/22/17 12:00 98.2 59 18 131/77 100 Room Air 04/22/17 08:00 97.5 61 18 133/76 100 Room Air 04/22/17 04:00 97.6 56 18 139/80 99 Room Air 04/22/17 00:00 97.5 54 19 159/87 100 Room Air 04/21/17 20:00 97.9 62 20 138/82 100 Room Air Height (Feet): 5 Height (Inches): 3.00 Weight (Pounds): 125 General Appearance: no apparent distress Cardiovascular: regular rhythm Respiratory/Chest: decreased breath sounds Abdomen: soft Skin: other - Le improving Objective no other changes SIGIFRDEO LAZCANO Apr 22, 2017 16:23
[2017-04-22 20:00] VITALS: BP 142/76
[2017-04-23] VITALS (7 sets, daily range): BP systolic 128–182; BP diastolic 73–98
[2017-04-23] MEDS: Vancomycin 750mg/NS 250ml IVPB SCH (04:47)
[2017-04-23] MEDS: Norco 5mg/325mg tab ORAL PRN ×3 (04:54→20:05)
[2017-04-23 06:32] LABS: BASOPHILS % (AUTO) 2.3 % (0.0-2.0); HEMATOCRIT 36.9 % (37.0-47.0); HEMOGLOBIN 11.6 G/DL (12.0-16.0); LYMPHOCYTES % (AUTO) 36.6 % (20.0-45.0); MEAN CORPUSCULAR VOLUME 98 FL (80-99); MONOCYTES % (AUTO) 12.7 % (1.0-10.0); NEUTROPHILS % (AUTO) 44.5 % (45.0-75.0); PLATELET COUNT 270 K/UL (150-450); RED BLOOD COUNT 3.76 M/UL (4.20-5.40); WHITE BLOOD COUNT 5.2 K/UL (4.8-10.8)
[2017-04-23] MEDS: Aztreonam Inj 1 GM in D5W 55 ML IVPB SCH (06:56)
[2017-04-23 07:25] LABS: ALANINE AMINOTRANSFERASE 28 U/L (12-78); ALBUMIN 2.9 G/DL (3.4-5.0); ALBUMIN/GLOBULIN RATIO 0.6 (1.0-2.7); ALKALINE PHOSPHATASE 66 U/L (46-116); ANION GAP 7 mmol/L (5-15); ASPARTATE AMINO TRANSFERASE 34 U/L (15-37); BILIRUBIN,TOTAL 0.3 MG/DL (0.2-1.0); BLOOD UREA NITROGEN 13 mg/dL (7-18); CALCIUM 9.5 MG/DL (8.5-10.1); CARBON DIOXIDE 29 MMOL/L (21-32); CHLORIDE 104 MMOL/L (98-107); CREATININE 0.7 MG/DL (0.55-1.30); POTASSIUM 4.7 MMOL/L (3.5-5.1); SODIUM 140 MMOL/L (136-145)
[2017-04-23] MEDS ORDERED: AMBIEN5 MG ORAL (08:46)
[2017-04-23] MEDS ORDERED: COLACE100 MG ORAL (08:46)
[2017-04-23] MEDS ORDERED: NORCO 5-325 TA1 EACH ORAL (08:46)
[2017-04-23] MEDS ORDERED: RANITIDINE HCL150 MG ORAL (08:46)
[2017-04-23] MEDS ORDERED: BENADRYL25 MG ORAL (08:46)
[2017-04-23] MEDS ORDERED: THIAMINE HCL100 MG ORAL (08:46)
[2017-04-23] MEDS ORDERED: DOXYCYCLINE HY100 M2 ORAL (08:46)
--- NOTE | 2017-04-23 08:50 | Discharge Instructions ---
Discharge Instructions Discharge Instructions Follow up with: myself at [facility] Diet: 2 GM sodium (low sodium) Activity: other - PT and OT eval Special Instructions leg cellulitis and skin care For Congestive Heart Failure Reminder Report to your physician any weight gain of 5 pounds or more in one week. SIGIFREDO LAZCANO Apr 23, 2017 08:50
--- NOTE | 2017-04-23 08:50 | Discharge Instructions ---
Discharge Instructions Discharge Instructions Follow up with: myself at [facility] Diet: 2 GM sodium (low sodium) Activity: other - PT and OT eval Special Instructions leg cellulitis and skin care For Congestive Heart Failure Reminder Report to your physician any weight gain of 5 pounds or more in one week. SIGIFREDO LAZCANO Apr 23, 2017 08:50
--- NOTE | 2017-04-23 08:50 | Discharge Instructions ---
Discharge Instructions Discharge Instructions Follow up with: myself at [facility] Diet: 2 GM sodium (low sodium) Activity: other - PT and OT eval Special Instructions leg cellulitis and skin care For Congestive Heart Failure Reminder Report to your physician any weight gain of 5 pounds or more in one week. SIGIFREDO LAZCANO Apr 23, 2017 08:50
--- NOTE | 2017-04-23 08:51 | General Progress Note ---
Assessment/Plan Status: stable Assessment/Plan 1. Cellulitis of lower extremity, likely with rapidly growing organism that starts very fast. 2. Pyuria and bacteruria. Urine culture growing gram-negative rods. 3. Hypertension. 4. Chronic alcohol abuse. 5. Homeless. 6. Penicillin, nitrofurantoin, and Cipro allergy. Plan: Antibiotics per ID Leg elevation low dose lasix Dc Patient agrees to go to ECF DC in am on po Doxy Subjective ROS Limited/Unobtainable: No Constitutional: Reports: other - weak Allergies: Coded Allergies: CIPROFLOXACIN (Unverified Allergy, Unknown, 04/28/14) NITROFURANTOIN (Verified Allergy, Unknown, 02/11/16) PENICILLINS (Verified Allergy, Unknown, 02/11/16) Objective Last 24 Hour Vital Signs Date Time Temp Pulse Resp B/P (MAP) Pulse Ox O2 Delivery O2 Flow Rate FiO2 04/23/17 04:00 97.6 54 19 139/82 100 Room Air 04/23/17 00:00 97.9 58 19 128/74 100 Room Air 04/22/17 20:00 97.9 59 20 142/76 100 Room Air 04/22/17 16:00 97.7 63 18 142/88 100 Room Air 04/22/17 12:00 98.2 59 18 131/77 100 Room Air Laboratory Tests 04/23/17 05:10: White Blood Count 5.2, Red Blood Count 3.76L, Hemoglobin 11.6L, Hematocrit 36.9L , Mean Corpuscular Volume 98, Mean Corpuscular Hemoglobin 30.8, Mean Corpuscular Hemoglobin Concent 31.3L, Red Cell Distribution Width 14.0, Platelet Count 270, Mean Platelet Volume 6.4L, Neutrophils (%) (Auto) 44.5L, Lymphocytes (%) (Auto) 36.6, Monocytes (%) (Auto) 12.7H, Eosinophils (%) (Auto) 4.0H, Basophils (%) (Auto) 2.3H, Sodium Level 140, Potassium Level 4.7, Chloride Level 104, Carbon Dioxide Level 29, Anion Gap 7, Blood Urea Nitrogen 13 , Creatinine 0.7, Estimat Glomerular Filtration Rate , Glucose Level 95, Calcium Level 9.5, Total Bilirubin 0.3, Aspartate Amino Transf (AST/SGOT) 34, Alanine Aminotransferase (ALT/SGPT) 28, Alkaline Phosphatase 66, Total Protein 7.9, Albumin 2.9L, Globulin 5.0, Albumin/Globulin Ratio 0.6L Height (Feet): 5 Height (Inches): 3.00 Weight (Pounds): 125 General Appearance: no apparent distress Cardiovascular: normal rate Respiratory/Chest: lungs clear Abdomen: soft Objective no other changes SIGIFREDO LAZCANO Apr 23, 2017 08:51
[2017-04-23] MEDS: Docusate 100mg cap ORAL SCH ×3 (09:39→19:04)
[2017-04-23] MEDS: Thiamine 100mg tab ORAL SCH (09:45)
[2017-04-23] MEDS: Heparin 5000 units/ml inj SUBQ SCH ×2 (10:06→20:51)
[2017-04-23] MEDS ORDERED: HYDROmorphone 1mg/ml Carpuject IVP ONE (18:00)
[2017-04-23] MEDS ORDERED: NS 275ml ONE (21:34)
--- NOTE | 2017-04-25 16:34 | Discharge Summary ---
Discharge Summary Hospital Course Date of Admission Apr 18, 2017 at 17:41 Date of Discharge Apr 23, 2017 at 21:35 Admitting Diagnosis cellulitis HPI Leeroy Gamboa is a 71 year old female who was admitted on Apr 18, 2017 at 17: 41 for Cellulitis Hospital Course [id number] Discharge Discharge Disposition Patient was discharged to SNF/Subacute Facility(03) Discharge Diagnoses: Discharge Instructions Discharge Instructions Follow up with: myself at [facility] Activity: other - PT and OT Britta Mondragon NP Apr 25, 2017 16:34
--- NOTE | 2017-04-25 16:34 | Discharge Summary ---
Discharge Summary Hospital Course Date of Admission Apr 18, 2017 at 17:41 Date of Discharge Apr 23, 2017 at 21:35 Admitting Diagnosis cellulitis HPI Leeroy Gamboa is a 71 year old female who was admitted on Apr 18, 2017 at 17: 41 for Cellulitis Hospital Course [id number] Discharge Discharge Disposition Patient was discharged to SNF/Subacute Facility(03) Discharge Diagnoses: Discharge Instructions Discharge Instructions Follow up with: myself at [facility] Activity: other - PT and OT Britta Mondragon NP Apr 25, 2017 16:34
--- NOTE | 2017-04-25 16:34 | Discharge Summary ---
Discharge Summary Hospital Course Date of Admission Apr 18, 2017 at 17:41 Date of Discharge Apr 23, 2017 at 21:35 Admitting Diagnosis cellulitis HPI Leeroy Gamboa is a 71 year old female who was admitted on Apr 18, 2017 at 17: 41 for Cellulitis Hospital Course [id number] Discharge Discharge Disposition Patient was discharged to SNF/Subacute Facility(03) Discharge Diagnoses: Discharge Instructions Discharge Instructions Follow up with: myself at [facility] Activity: other - PT and OT Britta Mondragon NP Apr 25, 2017 16:34
--- NOTE | 2017-04-26 00:15 | Discharge Summary 2 SIG ---
DATE OF ADMISSION: 04/18/2017 DATE OF DISCHARGE: 04/23/2017 CONSULTANTS: Sacha Magana M.D. BRIEF HOSPITAL COURSE: The patient is a 71-year-old female, came to emergency room with pain, swelling, and erythema of bilateral lower extremity, mostly on the left. There was no history of trauma or fall. She complained of itchy rash on the lower leg for the past three days. She has history significant for hypertension, alcoholic liver damage, alcohol abuse, mild depression, and chronic back and leg pain. On evaluation at ED, EKG was in normal sinus rhythm with no acute ST changes. Blood work was stable. Urine drug screen was negative. Venous duplex of lower extremity was negative for acute DVT. She was started on IV antibiotics and was admitted for bilateral leg cellulitis. The patient has penicillin, nitrofurantoin, and Cipro allergy. Bactrim was changed to Azactam. Urine culture showed growth of E. coli. She was advised on leg elevation and was given low-dose Lasix. She came in febrile and eventually defervesced. The patient was eventually discharged to a [facility]. FINAL DIAGNOSES: 1. Bilateral lower leg cellulitis. 2. Pyuria and bacteriuria with urinary tract infection with Escherichia coli. 3. Hypertension. 4. Chronic alcohol abuse. 5. Homeless. 6. Penicillin, nitrofurantoin, and ciprofloxacin allergy. FINAL DISPOSITION: The patient was discharged to [facility]. DISCHARGE MEDICATIONS: Refer to medication list. Continue doxycycline 100 mg capsule q.12 h. for seven days. Zacarias Scott M.D. I have been assigned to dictate discharge summary on this account and I was not involved in the patient's management. Britta Sousa N.P. DR: Donte JOB#: [id number] CC: TAYLOR
--- NOTE | 2017-04-26 00:15 | Discharge Summary 2 SIG ---
DATE OF ADMISSION: 04/18/2017 DATE OF DISCHARGE: 04/23/2017 CONSULTANTS: Sacha Magana M.D. BRIEF HOSPITAL COURSE: The patient is a 71-year-old female, came to emergency room with pain, swelling, and erythema of bilateral lower extremity, mostly on the left. There was no history of trauma or fall. She complained of itchy rash on the lower leg for the past three days. She has history significant for hypertension, alcoholic liver damage, alcohol abuse, mild depression, and chronic back and leg pain. On evaluation at ED, EKG was in normal sinus rhythm with no acute ST changes. Blood work was stable. Urine drug screen was negative. Venous duplex of lower extremity was negative for acute DVT. She was started on IV antibiotics and was admitted for bilateral leg cellulitis. The patient has penicillin, nitrofurantoin, and Cipro allergy. Bactrim was changed to Azactam. Urine culture showed growth of E. coli. She was advised on leg elevation and was given low-dose Lasix. She came in febrile and eventually defervesced. The patient was eventually discharged to a residential. FINAL DIAGNOSES: 1. Bilateral lower leg cellulitis. 2. Pyuria and bacteriuria with urinary tract infection with Escherichia coli. 3. Hypertension. 4. Chronic alcohol abuse. 5. Homeless. 6. Penicillin, nitrofurantoin, and ciprofloxacin allergy. FINAL DISPOSITION: The patient was discharged to [facility]. DISCHARGE MEDICATIONS: Refer to medication list. Continue doxycycline 100 mg capsule q.12 h. for seven days. Zacarias Scott M.D. I have been assigned to dictate discharge summary on this account and I was not involved in the patient's management. Britta Sousa N.P. DR: Donte JOB#: [id number] CC: TAYLOR
--- NOTE | 2017-04-26 00:15 | Discharge Summary 2 SIG ---
DATE OF ADMISSION: 04/18/2017 DATE OF DISCHARGE: 04/23/2017 CONSULTANTS: Sacha Magana M.D. BRIEF HOSPITAL COURSE: The patient is a 71-year-old female, came to emergency room with pain, swelling, and erythema of bilateral lower extremity, mostly on the left. There was no history of trauma or fall. She complained of itchy rash on the lower leg for the past three days. She has history significant for hypertension, alcoholic liver damage, alcohol abuse, mild depression, and chronic back and leg pain. On evaluation at ED, EKG was in normal sinus rhythm with no acute ST changes. Blood work was stable. Urine drug screen was negative. Venous duplex of lower extremity was negative for acute DVT. She was started on IV antibiotics and was admitted for bilateral leg cellulitis. The patient has penicillin, nitrofurantoin, and Cipro allergy. Bactrim was changed to Azactam. Urine culture showed growth of E. coli. She was advised on leg elevation and was given low-dose Lasix. She came in febrile and eventually defervesced. The patient was eventually discharged to a detention. FINAL DIAGNOSES: 1. Bilateral lower leg cellulitis. 2. Pyuria and bacteriuria with urinary tract infection with Escherichia coli. 3. Hypertension. 4. Chronic alcohol abuse. 5. Homeless. 6. Penicillin, nitrofurantoin, and ciprofloxacin allergy. FINAL DISPOSITION: The patient was discharged to [facility]. DISCHARGE MEDICATIONS: Refer to medication list. Continue doxycycline 100 mg capsule q.12 h. for seven days. Zacarias Scott M.D. I have been assigned to dictate discharge summary on this account and I was not involved in the patient's management. Britta Sousa N.P. DR: Donte JOB#: [id number] CC: TAYLOR
== END 2017-04-23 21:35 | DRG 603 ==
LOC: EMR 17:25 → 4E 17:41 → EDBEDREQ 18:10
DX: L03.116 Cellulitis of left lower limb (principal); N39.0 Urinary tract infection, site not specified; K70.9 Alcoholic liver disease, unspecified; I10 Essential (primary) hypertension; L03.115 Cellulitis of right lower limb; Z59.0 Homelessness; F10.10 Alcohol abuse, uncomplicated; F32.9 Major depressive disorder, single episode, unspecified; G89.29 Other chronic pain; M54.9 Dorsalgia, unspecified; M79.606 Pain in leg, unspecified; R21 Rash and other nonspecific skin eruption; Z88.1 Allergy status to other antibiotic agents; Z88.0 Allergy status to penicillin; Z88.8 Allergy status to other drugs, medicaments and biological substances; B96.20 Unspecified Escherichia coli [E. coli] as the cause of diseases classified elsewhere; Z22.322 Carrier or suspected carrier of Methicillin resistant Staphylococcus aureus
CPT/HCPCS: 36415; 71010; 80053; 80061; 80202; 80307; 81003; 82550; 82553; 82977; 83605; 83735; 83880; 84100; 84484; 84550; 85025; 86140; 87040; 87081; 87086; 87181; 93005; 93970; 99285; J8499

== ENCOUNTER 2018-03-01 23:24 | Inpatient (IN) | payer MEDICARE, MEDICAID ==
[~2018-03-01] VITALS: Ht 160 cm; Wt 54.2 kg
[~2018-03-01 23:24] MED LIST changes: +AMBIEN5 MG ORAL; +COLACE100 MG ORAL; +DOXYCYCLINE HY100 M2 ORAL; +RANITIDINE HCL150 MG ORAL
[2018-03-02] VITALS (32 sets, daily range): BP systolic 90–135; BP diastolic 50–90
--- NOTE | 2018-03-02 00:15 | Diagnostic Imaging Report ---
EXAM: XR Chest, 1 View CLINICAL HISTORY: CP TECHNIQUE: Frontal view of the chest. COMPARISON: Chest x-ray dated 04/20/2017 FINDINGS: Lungs: Unremarkable. No consolidation. Pleural space: Unremarkable. No pneumothorax. Heart: Stable enlargement of the heart. Mediastinum: Unremarkable. Bones/joints: Degenerative changes of the osseous structures. IMPRESSION: No acute findings.
[2018-03-02] MEDS ORDERED: dilTIAZem HCl 25mg/5ml Inj IVP ONE (00:30)
--- NOTE | 2018-03-02 01:01 | Emergency Room Report ---
History of Present Illness General Chief Complaint: Diarrhea Present Illness HPI This patient is "not feeling well." Cannot be specific. She is homeless/near homeless. Denies specific pain. Denies fever, trauma. Hx. limited due to patient's underlying inability to give good information. ? meds Admission last year: FINAL DIAGNOSES: 1. Bilateral lower leg cellulitis. 2. Pyuria and bacteriuria with urinary tract infection with Escherichia coli. 3. Hypertension. 4. Chronic alcohol abuse. 5. Homeless. 6. Penicillin, nitrofurantoin, and ciprofloxacin allergy. FINAL DISPOSITION: The patient was discharged to [facility]. Allergies: Coded Allergies: CIPROFLOXACIN (Unverified Allergy, Unknown, 04/28/14) NITROFURANTOIN (Verified Allergy, Unknown, 02/11/16) PENICILLINS (Verified Allergy, Unknown, 02/11/16) Nursing Documentation-H Hx Cardiac Problems: Yes - 'Skipped beat' Hx Hypertension: Yes Hx Pacemaker: No Hx Asthma: Yes Hx Diabetes: No Hx Cancer: No Hx Gastrointestinal Problems: No Hx Neurological Problems: Yes Hx Dizziness: Yes Hx Weakness: Yes Review of Systems Constitutional: Reports: see HPI, malaise Eye: Reports: no symptoms ENT: Reports: no symptoms Respiratory: Reports: shortness of breath Cardiovascular: Reports: palpitations Gastrointestinal: Reports: no symptoms Neurological: Reports: no symptoms All Other Systems: limited Physical Exam Vital Signs Date Time Temp Pulse Resp B/P (MAP) Pulse Ox O2 Delivery O2 Flow Rate FiO2 03/01/18 23:38 97.7 100 20 102/53 96 Room Air 97.7 General Appearance: well appearing, no apparent distress Head: normocephalic, atraumatic ENT: hearing grossly normal, normal voice Neck: full range of motion, supple Respiratory: no respiratory distress, speaking full sentences Cardiovascular #1: tachycardia Gastrointestinal: normal bowel sounds, non tender, soft Musculoskeletal: normal range of motion, no calf tenderness Neurologic: alert, normal gait Psychiatric: mood/affect normal Skin: no rash Medical Decision Making Diagnostic Impression: Primary Impression: Rapid atrial fibrillation Additional Impressions: Hyponatremia Renal insufficiency Thrombocytopenia ER Course EKG last year Mar 2017 NSR presumed new atrial fib IV Cardizem bolus and drip ordered. After 15 mg/hour the rate is still 170-180. Changing to IV Amiodarone. HR 111 on Amiodarone drip. hyponatremia, renal insufficiency: NS ordered. Dr. Escalera alerted for admission CRITICAL CARE NOTE: The patient was at risk for respiratory and cardiac failure and required aggressive intervention by me. Critical care time provided by me, excluding other separately billable procedures exceeded 35 minutes. This time included: Obtaining history from: patient, EMS, friend, PMD Examination of the patient Development of treatment plan Ordering and reviewing diagnostic test results Discussion of treatment plan with customer relations consultant, PMD, patient, friend Coordinating care with nursing and respiratory therapy Supervising IV medications Multiple reassessments Discussion with the admitting physician EKG Diagnostic Results EKG Time: 00:59 Rate: tachycardiac Rhythm: other Other Impression rapid atrial fibrillation 174; NSST Rhythm Strip Diag. Results Rhythm Strip Time: 01:00 EP Interpretation: yes Rate: 177 Rhythm: other Chest X-Ray Diagnostic Results Chest X-Ray Diagnostic Results : Chest X-Ray Ordered: Yes # of Views/Limited/Complete: 1 View Indication: Shortness of Breath EP Interpretation: Yes Interpretation: no consolidation, no effusion, no pneumothorax, no acute cardiopulmonary disease Last Vital Signs Date Time Temp Pulse Resp B/P (MAP) Pulse Ox O2 Delivery O2 Flow Rate FiO2 03/01/18 23:38 97.7 100 20 102/53 96 Room Air 97.7 Status: improved Disposition: ADMITTED INPATIENT Condition: Critical Gonsalo Dumont M.D. Mar 02, 2018 01:01
[2018-03-02 01:06] LABS: HEMATOCRIT 41.3 % (37.0-47.0); HEMOGLOBIN 13.5 G/DL (12.0-16.0); MEAN CORPUSCULAR VOLUME 90 FL (80-99); PLATELET COUNT 89 K/UL (150-450); RED BLOOD COUNT 4.61 M/UL (4.20-5.40); RED CELL DISTRIBUTION WIDTH 11.7 % (11.6-14.8); WHITE BLOOD COUNT 8.5 K/UL (4.8-10.8)
[2018-03-02 01:18] LABS: INR 1.2 (0.9-1.1)
[2018-03-02 01:21] LABS: ANION GAP 12 mmol/L (5-15); BLOOD UREA NITROGEN 28 mg/dL (7-18); CALCIUM 8.1 MG/DL (8.5-10.1); CARBON DIOXIDE 25 MMOL/L (21-32); CHLORIDE 91 MMOL/L (98-107); CREATININE 1.2 MG/DL (0.55-1.30); POTASSIUM 3.3 MMOL/L (3.5-5.1); SODIUM 128 MMOL/L (136-145)
[2018-03-02 01:32] LABS: ALANINE AMINOTRANSFERASE 50 U/L (12-78); ALBUMIN/GLOBULIN RATIO 0.6 (1.0-2.7); ALKALINE PHOSPHATASE 68 U/L (46-116); ASPARTATE AMINO TRANSFERASE 150 U/L (15-37); BILIRUBIN,TOTAL 0.6 MG/DL (0.2-1.0)
[2018-03-02] MEDS ORDERED: Amiodarone 150mg/ml 3ml Amp IVP ONE (02:45)
[2018-03-02] MEDS ORDERED: Amiodarone 900 MG in D5W 500ml 482 ML IV ONE (03:00)
[2018-03-02] MEDS ORDERED: Amiodarone 150mg/ml 3ml Amp ONE ×2 (03:07→03:20)
[2018-03-02] MEDS ORDERED: Metoprolol 5mg/5ml Inj IVP PRN (08:00)
[2018-03-02] MEDS ORDERED: Nitroglycerin Subl 0.4mg tab SL PRN (08:00)
[2018-03-02] MEDS ORDERED: Enalaprilat 2.5mg/2ml Inj IV PRN (08:00)
[2018-03-02] MEDS ORDERED: dilTIAZem HCl 25mg/5ml Inj IV PRN (08:00)
[2018-03-02] MEDS ORDERED: Albuterol/Ipratropium 3ml neb HHN PRN (08:00)
[2018-03-02] MEDS ORDERED: Miralax 17gm pkt ORAL PRN (08:00)
[2018-03-02] MEDS ORDERED: Morphine Sulfate 2mg/ml Inj IVP PRN (08:00)
[2018-03-02] MEDS ORDERED: Digoxin 0.5mg/2ml Inj IVP SCH (08:30)
[2018-03-02] MEDS: Metoprolol Succinate XL 25mg tab ORAL SCH (09:00)
[2018-03-02] MEDS ORDERED: Amiodarone 900 MG in D5W 500ml 482 ML IV SCH (09:30)
[2018-03-02 10:33] LABS: HEMATOCRIT 37.5 % (37.0-47.0); HEMOGLOBIN 12.5 G/DL (12.0-16.0); MEAN CORPUSCULAR VOLUME 89 FL (80-99); PLATELET COUNT 91 K/UL (150-450); RED BLOOD COUNT 4.21 M/UL (4.20-5.40); RED CELL DISTRIBUTION WIDTH 11.7 % (11.6-14.8); WHITE BLOOD COUNT 9.4 K/UL (4.8-10.8)
--- NOTE | 2018-03-02 10:34 | Pulmonolgy Critical Care Note ---
Critical Care - Asmt/Plan Assessment/Plan: ASSESSMENT A Fib with RVR PAF KASHMIR probably dehydration e/lyte imbalance ( hypo Na, hypo K) thrombocytopenia HTN ETOH abuse probably protein calorie malnutrition PLAN OF CARE ICU Amiodarone gtt, converted to SR cardio eval - per PMD discretion consider a/coagulation if recurs BP management with BB and CCB continue Digoxin, check level ECHO cardio eval pending s/p IVF monitor renal parameters, lytes, correct e/lytes as needed avoid nephrotoxic nephro follows w/up for hypo Na O2 HHN prn low PLT count likely 2 to hx of ETOH no heparin, monitor counts Venous Duplex and SCD if negative GI prophylaxis dietary eval to improve nutritional status bowel regimen supportive care case discussed and evaluated by supervising physician case discussed and evaluated by supervising physician Critical Care - Objective Last 24 Hour Vital Signs Date Time Temp Pulse Resp B/P (MAP) Pulse Ox O2 Delivery O2 Flow Rate FiO2 03/02/18 09:00 81 109/76 03/02/18 09:00 81 109/73 03/02/18 08:30 81 03/02/18 08:20 99.0 106 23 102/69 96 Room Air 99.0 03/02/18 08:06 99.0 106 23 102/69 96 Room Air 99.0 03/02/18 07:03 111 20 101/60 95 Room Air 03/02/18 05:30 116 21 109/69 96 Room Air 03/02/18 03:30 174 22 94 Room Air 03/02/18 02:08 166 17 135/90 94 Room Air 03/02/18 01:44 173 17 124/72 95 03/02/18 01:31 173 95/82 03/02/18 01:22 161 95/82 03/02/18 01:13 174 18 95/82 Room Air 03/02/18 00:00 97.7 20 102/53 96 Room Air 97.7 03/01/18 23:38 97.7 100 20 102/53 96 Room Air 97.7 Status: awake Condition: improving HEENT: atraumatic, normocephalic Lungs: clear Heart: HR/BP stable Abdomen: soft, non-tender, active bowel sounds Critical Care - Subjective Interval Events: admitted with AF with RVR given Cardizem bolus and started on Amiodarone gtt in ED transferred to ICU subsequently converted to SR low Na and K no signs of resp distress no chest pain, no SOB pulse ox stable Condition: critical IV Access: peripheral EKG Rhythm: Sinus Rhythm Drips: Amiodarone Jadyn Mcneil NP Mar 02, 2018 10:33
--- NOTE | 2018-03-02 10:37 | Consultation ---
Consult Note Consult Note asked to eval by Dr Escalera- Patient known to me from my office- PH: 1. Cellulitis of lower extremity, likely with rapidly growing organism that starts very fast. 2. Pyuria and bacteruria. Urine culture growing gram-negative rods. 3. Hypertension. 4. Chronic alcohol abuse. 5. Homeless. 6. Penicillin, nitrofurantoin, and Cipro allergy. Other PH Hx Cardiac Problems: Yes - 'Skipped beat' Hx Hypertension: Yes Hx Asthma: Yes Hx Neurological Problems: Yes Hx Dizziness: Yes Hx Weakness: Yes Constitutional: Reports: see HPI, malaise Eye: Reports: no symptoms ENT: Reports: no symptoms Respiratory: Reports: shortness of breath Cardiovascular: Reports: palpitations Gastrointestinal: Reports: no symptoms Neurological: Reports: no symptoms All Other Systems: limited Assessment/Plan Assessment: Rapid atrial fibrillation Hyponatremia Renal insufficiency / Dehydration Thrombocytopenia HTN by history now BP low Plan: ICU IV Amio Saline- 2Decho check labs K supplement Urine studies and tox screen discussed with Zacarias Srivastava MD Mar 02, 2018 10:37
[2018-03-02] MEDS ORDERED: Thiamine 100mg tab ORAL SCH (11:00)
[2018-03-02] MEDS ORDERED: Norco 5mg/325mg tab ORAL PRN (11:00)
[2018-03-02 11:04] LABS: ALANINE AMINOTRANSFERASE 47 U/L (12-78); ALBUMIN 2.6 G/DL (3.4-5.0); ALBUMIN/GLOBULIN RATIO 0.6 (1.0-2.7); ALKALINE PHOSPHATASE 60 U/L (46-116); ANION GAP 9 mmol/L (5-15); ASPARTATE AMINO TRANSFERASE 153 U/L (15-37); BILIRUBIN,TOTAL 0.8 MG/DL (0.2-1.0); BLOOD UREA NITROGEN 23 mg/dL (7-18); CALCIUM 7.7 MG/DL (8.5-10.1); CARBON DIOXIDE 28 MMOL/L (21-32); CHLORIDE 96 MMOL/L (98-107); PHOSPHORUS 2.9 MG/DL (2.5-4.9); SODIUM 133 MMOL/L (136-145)
[2018-03-02 11:06] LABS: POTASSIUM 2.5 MMOL/L (3.5-5.1)
[2018-03-02 11:39] LABS: APPEARANCE,URINE CLEAR; BILIRUBIN, URINE NEGATIVE (NEGATIVE); GLUCOSE, URINE (UA) NEGATIVE (NEGATIVE); KETONES,URINE NEGATIVE (NEGATIVE); LEUKOCYTE ESTERASE ,URINE 1+ (NEGATIVE); NITRITE,URINE NEGATIVE (NEGATIVE); PH,URINE 7 (4.5-8.0); PROTEIN,URINE 1+ (NEGATIVE); UROBILINOGEN,URINE NORMAL MG/DL (0.0-1.0)
[2018-03-02 11:47] LABS: COLOR,URINE YELLOW
[2018-03-02] MEDS ORDERED: Vitamin B12 1000mcg/ml Inj IM SCH (12:00)
[2018-03-02] MEDS: Docusate 100mg cap ORAL SCH ×2 (12:32→17:16)
--- NOTE | 2018-03-02 14:38 | Cardiac Electrophysiology PN ---
Subjective Subjective Dictated [id number] Objective Last 24 Hour Vital Signs Date Time Temp Pulse Resp B/P (MAP) Pulse Ox O2 Delivery O2 Flow Rate FiO2 03/02/18 14:00 85 18 118/68 (85) 100 03/02/18 13:30 84 18 110/65 (80) 99 03/02/18 13:00 80 17 112/65 (81) 99 03/02/18 12:30 84 16 110/60 (77) 99 03/02/18 12:09 Room Air 03/02/18 12:00 99.0 81 12 115/66 (82) 97 99.0 03/02/18 12:00 75 03/02/18 11:30 87 15 118/60 (79) 98 03/02/18 11:00 80 14 115/66 (82) 98 03/02/18 10:30 85 15 110/62 (78) 98 03/02/18 10:00 82 16 108/60 (76) 100 03/02/18 09:30 80 15 105/58 (74) 99 03/02/18 09:00 99.4 88 10 98/55 (69) 98 99.4 03/02/18 09:00 81 109/76 03/02/18 09:00 81 109/73 03/02/18 08:30 81 03/02/18 08:28 Room Air 03/02/18 08:20 99.0 106 23 102/69 96 Room Air 99.0 03/02/18 08:06 99.0 106 23 102/69 96 Room Air 99.0 03/02/18 07:03 111 20 101/60 95 Room Air 03/02/18 05:30 116 21 109/69 96 Room Air 03/02/18 03:30 174 22 94 Room Air 03/02/18 02:08 166 17 135/90 94 Room Air 03/02/18 01:44 173 17 124/72 95 03/02/18 01:31 173 95/82 03/02/18 01:22 161 95/82 03/02/18 01:13 174 18 95/82 Room Air 03/02/18 00:00 97.7 20 102/53 96 Room Air 97.7 03/01/18 23:38 97.7 100 20 102/53 96 Room Air 97.7 Laboratory Tests Test 03/02/18 00:45 03/02/18 10:05 03/02/18 11:00 White Blood Count 8.5 K/UL (4.8-10.8) 9.4 K/UL (4.8-10.8) Red Blood Count 4.61 M/UL (4.20-5.40) 4.21 M/UL (4.20-5.40) Hemoglobin 13.5 G/DL (12.0-16.0) 12.5 G/DL (12.0-16.0) Hematocrit 41.3 % (37.0-47.0) 37.5 % (37.0-47.0) Mean Corpuscular Volume 90 FL (80-99) 89 FL (80-99) Mean Corpuscular Hemoglobin 29.2 PG (27.0-31.0) 29.6 PG (27.0-31.0) Mean Corpuscular Hemoglobin Concent 32.7 G/DL (32.0-36.0) 33.2 G/DL (32.0-36.0) Red Cell Distribution Width 11.7 % (11.6-14.8) 11.7 % (11.6-14.8) Platelet Count 89 K/UL (150-450) L 91 K/UL (150-450) L Mean Platelet Volume 11.3 FL (6.5-10.1) H 11.0 FL (6.5-10.1) H Neutrophils (%) (Auto) % (45.0-75.0) % (45.0-75.0) Lymphocytes (%) (Auto) % (20.0-45.0) % (20.0-45.0) Monocytes (%) (Auto) % (1.0-10.0) % (1.0-10.0) Eosinophils (%) (Auto) % (0.0-3.0) % (0.0-3.0) Basophils (%) (Auto) % (0.0-2.0) % (0.0-2.0) Differential Total Cells Counted 100 100 Neutrophils % (Manual) 73 % (45-75) 82 % (45-75) H Lymphocytes % (Manual) 15 % (20-45) L 14 % (20-45) L Monocytes % (Manual) 11 % (1-10) H 4 % (1-10) Eosinophils % (Manual) 1 % (0-3) 0 % (0-3) Basophils % (Manual) 0 % (0-2) 0 % (0-2) Band Neutrophils 0 % (0-8) 0 % (0-8) Platelet Estimate Decreased L Decreased L Platelet Morphology Normal Normal Prothrombin Time 12.9 SEC (9.30-11.50) H Prothromb Time International Ratio 1.2 (0.9-1.1) H Sodium Level 128 MMOL/L (136-145) L 133 MMOL/L (136-145) L Potassium Level 3.3 MMOL/L (3.5-5.1) L 2.5 MMOL/L (3.5-5.1) *L Chloride Level 91 MMOL/L (98-107) L 96 MMOL/L (98-107) L Carbon Dioxide Level 25 MMOL/L (21-32) 28 MMOL/L (21-32) Anion Gap 12 mmol/L (5-15) 9 mmol/L (5-15) Blood Urea Nitrogen 28 mg/dL (7-18) H 23 mg/dL (7-18) H Creatinine 1.2 MG/DL (0.55-1.30) 1.0 MG/DL (0.55-1.30) Estimat Glomerular Filtration Rate mL/min (>60) mL/min (>60) Glucose Level 93 MG/DL (74-106) 111 MG/DL (74-106) H Calcium Level 8.1 MG/DL (8.5-10.1) L 7.7 MG/DL (8.5-10.1) L Total Bilirubin 0.6 MG/DL (0.2-1.0) 0.8 MG/DL (0.2-1.0) Aspartate Amino Transf (AST/SGOT) 150 U/L (15-37) H 153 U/L (15-37) H Alanine Aminotransferase (ALT/SGPT) 50 U/L (12-78) 47 U/L (12-78) Alkaline Phosphatase 68 U/L (46-116) 60 U/L (46-116) Troponin I 0.032 ng/mL (0.000-0.056) 0.040 ng/mL (0.000-0.056) Pro-B-Type Natriuretic Peptide 1446 pg/mL (0-125) H 3989 pg/mL (0-125) H Total Protein 7.9 G/DL (6.4-8.2) 6.9 G/DL (6.4-8.2) Albumin 3.0 G/DL (3.4-5.0) L 2.6 G/DL (3.4-5.0) L Globulin 4.9 g/dL 4.3 g/dL Albumin/Globulin Ratio 0.6 (1.0-2.7) L 0.6 (1.0-2.7) L Red Blood Cell Morphology Normal Hemoglobin A1c 5.7 % (4.3-6.0) Osmolality 278 mOsm/kg (297-317) L Uric Acid 6.1 MG/DL (2.6-7.2) Phosphorus Level 2.9 MG/DL (2.5-4.9) Magnesium Level 1.1 MG/DL (1.8-2.4) L Vitamin B12 Level 571 PG/ML (193-986) Folate 14.7 NG/ML (8.6-58.9) Urine Color Yellow Urine Appearance Clear Urine pH 7 (4.5-8.0) Urine Specific [place] 1.005 (1.005-1.035) Urine Protein 1+ (NEGATIVE) H Urine Glucose (UA) Negative (NEGATIVE) Urine Ketones Negative (NEGATIVE) Urine Blood 5+ (NEGATIVE) H Urine Nitrite Negative (NEGATIVE) Urine Bilirubin Negative (NEGATIVE) Urine Urobilinogen Normal MG/DL (0.0-1.0) Urine Leukocyte Esterase 1+ (NEGATIVE) H Urine RBC 20-30 /HPF (0 - 2) H Urine WBC 0-2 /HPF (0 - 2) Urine Squamous Epithelial Cells Occasional /LPF Urine Bacteria Occasional /HPF (NONE) Urine Osmolality 323 mOsm/kg (429-449) L Urine Random Sodium < 20 mmol/L (20-110) L Urine Opiates Screen Negative (NEGATIVE) Urine Barbiturates Screen Negative (NEGATIVE) Phencyclidine (PCP) Screen Negative (NEGATIVE) Urine Amphetamines Screen Negative (NEGATIVE) Urine Benzodiazepines Screen Negative (NEGATIVE) Urine Cocaine Screen Negative (NEGATIVE) Urine Marijuana (THC) Screen Negative (NEGATIVE) Adrien Moreno MD Mar 02, 2018 14:38
--- NOTE | 2018-03-02 18:41 | Cardiology Report ---
APPROVED REPORT EXAM: Two-dimensional and M-mode echocardiogram with Doppler and color Doppler. INDICATION LV FUNCTION M-Mode DIMENSIONS IVSd1.0 (0.7-1.1cm)Left Atrium (MM)3.2 (1.6-4.0cm) LVDd4.8 (3.5-5.6cm)Aortic Root3.4 (2.0-3.7cm) PWd0.9 (0.7-1.1cm)Aortic Cusp Exc.2.1 (1.5-2.0cm) IVSs1.4 cm LVDs3.2 (2.5-4.0cm) PWs1.6 cm Normal left ventricular chamber size, systolic function and wall motion . Left ventricular ejection fraction estimated to be 60-65%. Mild left ventricular hypertrophy by 2-D. Small posterior pericardial effusion. All other cardiac chamber sizes are within normal limits. Focal aortic valve sclerosis with adequate cusp excursion. Thickened mitral valve leaflets with normal excursion. Mitral annulus and aortic root calcification. Pulmonic valve not well visualized. Normal tricuspid valve structure. IVC at normal size with physiologic collapse. A color flow and spectral Doppler study was performed and revealed: Mild aortic regurgitation. Trace mitral regurgitation. Normal left ventricular diastolic function . Mild tricuspid regurgitation. Tricuspid systolic velocities suggests peak right ventricular systolic pressure of 42mmHg,consistent with mild pulmonary hypertension .
--- NOTE | 2018-03-02 19:00 | History and Physical Report ---
DATE OF ADMISSION: 03/02/2018 TIME SEEN: At 8 a.m. ATTENDING PHYSICIAN: Edy Escalera D.O. CONSULTANTS: 1. Daylin Cooper M.D. 2. Adrien Moreno M.D. 3. Zacarias Scott M.D. CHIEF COMPLAINT: Rapid atrial fibrillation, hyponatremia, and dehydration. BRIEF HISTORY: A 72-year-old female, homeless, presents to [place] ER with her friend, brought her in for increased lethargy, weakness, and was found to have rapid atrial fibrillation and hyponatremia and dehydration. The patient was treated in the ER, admitted to ICU for further care. The patient actually currently still awaiting bed in ICU in ER. Slightly weak. No complaint. PAST MEDICAL HISTORY: Includes hypertension and asthma. PAST SURGICAL HISTORY: Unknown. MEDICATIONS: Include digoxin, amlodipine, metoprolol, pantoprazole, nitroglycerin, morphine, temazepam, enalapril, and diltiazem. ALLERGIES: Cipro, nitrofurantoin, and penicillin. SOCIAL HISTORY: No smoking. Occasional alcohol. No intravenous drug abuse. FAMILY HISTORY: Noncontributory. REVIEW OF SYSTEMS: No chest pain. No shortness of breath. No nausea, vomiting, or diarrhea. PHYSICAL EXAMINATION: GENERAL: Calm in bed in the ER gurney, oriented x2, in no acute distress. VITAL SIGNS: Show temperature 99 degrees, pulse 106, respirations 23, and blood pressure 102/69. CARDIOVASCULAR: No murmur. LUNGS: Poor exchange. ABDOMEN: Bowel sounds distant. EXTREMITIES: Show no cyanosis or edema. NEUROLOGIC: The patient moves all extremities, slightly weak. LABORATORY AND DIAGNOSTIC DATA: Show CBC is normal. BMP shows sodium 128, potassium 3.3, chloride 91, BUN 28, and troponin 0.032. AST is 150. BNP is 1446. Albumin 3.0. INR is 1.2. ASSESSMENT: 1. Rapid atrial fibrillation. 2. Weakness. 3. Hyponatremia. 4. Hypokalemia. 5. Malnutrition. 6. Dehydration. 7. Asthma. 8. Hypotension. PLAN: 1. Cardiology followup. 2. Blood pressure control. 3. Nephrology followup. 4. IV fluids. 5. Dietary followup. 6. OT, PT, and dietary evaluation. 7. CBC and BMP in the morning. Edy Escalera D.O. DR: Gaston JOB#: [id number] CC:
[2018-03-02] MEDS: Amiodarone 200mg tab ORAL SCH (21:08)
--- NOTE | 2018-03-02 22:00 | Consultation ---
DATE OF CONSULTATION: 03/02/2018 CARDIOLOGY CONSULTATION CONSULTING PHYSICIAN: Adrien Moreno M.D. REFERRING PHYSICIAN: Edy Escalera D.O. REASON FOR CONSULTATION: Atrial fibrillation with rapid ventricular response. HISTORY OF PRESENT ILLNESS: The patient is a 72-year-old lady with history of hypertension and atrial fibrillation who was brought in from halfway for not feeling well. The patient apparently is homeless or near homeless. The patient denies having any chest pain or shortness of breath. In the emergency room, the patient was found to be in atrial fibrillation with rapid ventricular response and was started on amiodarone drip. The patient was then admitted to intensive care unit, after she also received IV Cardizem bolus. The patient was then admitted to the intensive care unit and Cardiology consultation was obtained for further evaluation. PAST MEDICAL HISTORY: As mentioned above. FAMILY HISTORY: Noncontributory. SOCIAL HISTORY: She is homeless. The patient drinks alcohol. REVIEW OF SYSTEMS: Negative other than what was mentioned in the history of present illness. PHYSICAL EXAMINATION: VITAL SIGNS: Show blood pressure of 118/68, pulse 85, respirations 18, and she is afebrile. HEAD AND NECK: Shows no JVD. LUNGS: Clear. CARDIOVASCULAR: Irregular S1 and S2 with no gallop or murmur. ABDOMEN: Soft and nontender. EXTREMITIES: No pitting edema. DIAGNOSTIC DATA: Her EKG showed atrial fibrillation with rapid ventricular response with a heart rate of 180 beats per minute. The telemetry strip shows bursts of atrial fibrillation, but also shows that the patient converted on telemetry to sinus rhythm. Her labs show white count of 9.4, hemoglobin of 12.5, hematocrit of 37.5, and platelet count of 91,000. Sodium was 132, potassium is 2.5, BUN of 22, creatinine of 1, and glucose of 111. Troponin is negative x2. BNP 3989. ASSESSMENT AND PLAN: 1. Atrial fibrillation with rapid ventricular response. The patient is 0.25 mg IV digoxin and is on amiodarone drip. The patient also received Toprol-XL 25 mg daily. I will increase metoprolol to 25 mg b.i.d. Continue digoxin and switch her amiodarone to 400 mg p.o. b.i.d. We will get a thyroid function test and get an echocardiogram to evaluate for ejection fraction and wall motion abnormality. 2. Hypertension. Keep the patient on metoprolol. 3. Severe hypokalemia with potassium of 2.5. Potassium was replaced. 4. Hyponatremia. Sodium was 128. Further evaluation by Dr. Scott. 5. Congestive heart failure. BNP of 4000. Her echocardiogram is pending. Her urine toxicology screen is negative. INR is 1.2. In view of anticoagulation, we will start the patient on Eliquis until further information is available. Thank you very much, Dr. Escalera, for allowing me to participate in the care of this patient. Please do not hesitate to contact me for any questions regarding my evaluation. Adrien Moreno M.D. DR: EDUARDO JOB#: [id number] CC:
[2018-03-03] VITALS (20 sets, daily range): BP systolic 85–135; BP diastolic 57–92
[2018-03-03 06:21] LABS: HEMATOCRIT 36.2 % (37.0-47.0); HEMOGLOBIN 12.1 G/DL (12.0-16.0); MEAN CORPUSCULAR VOLUME 89 FL (80-99); PLATELET COUNT 84 K/UL (150-450); RED BLOOD COUNT 4.08 M/UL (4.20-5.40); RED CELL DISTRIBUTION WIDTH 11.9 % (11.6-14.8); WHITE BLOOD COUNT 5.8 K/UL (4.8-10.8)
[2018-03-03 06:27] LABS: INR 1.3 (0.9-1.1)
[2018-03-03 06:28] LABS: BLOOD UREA NITROGEN 14 mg/dL (7-18); CHLORIDE 97 MMOL/L (98-107); POTASSIUM 3.1 MMOL/L (3.5-5.1); SODIUM 130 MMOL/L (136-145)
[2018-03-03 06:33] LABS: CREATINE KINASE 147 U/L (26-308); GAMMA GLUTAMYL TRANSPEPTIDASE 154 U/L (5-85)
[2018-03-03 06:40] LABS: ALANINE AMINOTRANSFERASE 44 U/L (12-78); ALBUMIN 2.3 G/DL (3.4-5.0); ALBUMIN/GLOBULIN RATIO 0.5 (1.0-2.7); ALKALINE PHOSPHATASE 64 U/L (46-116); ANION GAP 8 mmol/L (5-15); ASPARTATE AMINO TRANSFERASE 129 U/L (15-37); BILIRUBIN,TOTAL 0.6 MG/DL (0.2-1.0); CALCIUM 7.9 MG/DL (8.5-10.1); CARBON DIOXIDE 25 MMOL/L (21-32)
[2018-03-03 06:43] LABS: CHOLESTEROL 81 MG/DL (< 200); HDL CHOLESTEROL 11 MG/DL (40-60); TRIGLYCERIDES 121 MG/DL (30-150)
[2018-03-03] MEDS: Metoprolol Succinate XL 25mg tab ORAL SCH (08:36)
[2018-03-03 08:52] LABS: PHOSPHORUS 1.2 MG/DL (2.5-4.9)
[2018-03-03] MEDS ORDERED: Digoxin 0.5mg/2ml Inj IVP SCH (09:00)
[2018-03-03] MEDS ORDERED: Thiamine 100mg tab ORAL SCH (09:00)
--- NOTE | 2018-03-03 09:26 | Pulmonolgy Critical Care Note ---
Critical Care - Asmt/Plan Assessment/Plan: ASSESSMENT A Fib with RVR -resolved PAF KASHMIR -resolved probably dehydration e/lyte imbalance ( hypo Na, hypo K, hypo P ) hypotension thrombocytopenia HTN ETOH abuse probably protein calorie malnutrition moderate pulm HTN PLAN OF CARE off Amiodarone gtt, converted to SR oral Amiodarone TSH WNL cardio eval -appreciated a/coagulation - per cardio BP management with BB , holding parameters continue Digoxin, ECHO with pEF 60-65% and RVSP of 42 c/w moderate pulm HTN gentle IVF to support BP monitor renal parameters, lytes, correct e/lytes as needed avoid nephrotoxic nephro follows , replace K and P - per nephro w/up for hypo Na KASHMIR resolved O2 HHN prn CXR stable low PLT count likely 2 to hx of ETOH no heparin, monitor counts, at abseline Venous Duplex and SCD if negative GI prophylaxis dietary eval to improve nutritional status bowel regimen supportive care transfer to tele case discussed and evaluated by supervising physician case discussed and evaluated by supervising physician Critical Care - Objective Last 24 Hour Vital Signs Date Time Temp Pulse Resp B/P (MAP) Pulse Ox O2 Delivery O2 Flow Rate FiO2 03/03/18 08:36 71 95/67 03/03/18 08:00 71 03/03/18 08:00 Room Air 03/03/18 08:00 74 18 95/67 (76) 94 03/03/18 07:00 98.4 73 22 85/57 (66) 99 98.4 03/03/18 06:55 75 18 Room Air 21 03/03/18 06:00 98.1 74 22 90/58 (69) 99 98.1 03/03/18 06:00 98.4 03/03/18 05:15 100.5 03/03/18 05:00 80 22 113/74 (87) 99 03/03/18 04:00 96 22 121/72 (88) 99 03/03/18 04:00 Room Air 03/03/18 04:00 89 03/03/18 03:00 91 21 119/70 (86) 99 03/03/18 02:00 91 21 114/92 (99) 99 03/03/18 01:00 87 21 113/81 (92) 99 03/03/18 00:00 Room Air 03/03/18 00:00 98.4 83 21 102/66 (78) 99 98.4 03/03/18 00:00 83 03/02/18 23:00 83 21 106/87 (93) 98 03/02/18 22:00 83 16 90/81 (84) 98 03/02/18 21:00 82 16 104/73 (83) 98 03/02/18 20:00 80 18 Room Air 21 03/02/18 20:00 Room Air 03/02/18 20:00 98.2 79 16 102/69 (80) 98 98.2 03/02/18 20:00 77 03/02/18 19:00 94 16 112/62 (79) 98 03/02/18 18:30 89 16 110/60 (77) 98 03/02/18 18:00 98.9 98 19 98/67 (77) 97 98.9 03/02/18 17:30 90 16 115/60 (78) 98 03/02/18 17:00 95 16 117/65 (82) 98 03/02/18 16:45 102.2 03/02/18 16:30 80 15 105/50 (68) 100 03/02/18 16:00 102.2 95 14 115/56 (75) 100 102.2 03/02/18 16:00 90 03/02/18 16:00 Room Air 03/02/18 15:30 86 14 110/52 (71) 100 03/02/18 15:00 82 18 108/58 (75) 100 03/02/18 14:30 88 15 122/65 (84) 100 03/02/18 14:00 85 18 118/68 (85) 100 03/02/18 13:30 84 18 110/65 (80) 99 03/02/18 13:00 80 17 112/65 (81) 99 03/02/18 12:30 84 16 110/60 (77) 99 03/02/18 12:09 Room Air 03/02/18 12:00 99.0 81 12 115/66 (82) 97 99.0 03/02/18 12:00 75 03/02/18 11:30 87 15 118/60 (79) 98 03/02/18 11:00 80 14 115/66 (82) 98 03/02/18 10:30 85 15 110/62 (78) 98 03/02/18 10:00 82 16 108/60 (76) 100 03/02/18 09:30 80 15 105/58 (74) 99 Status: awake Condition: improving HEENT: atraumatic, normocephalic Neck: full ROM Lungs: clear Heart: HR/BP stable Abdomen: soft, non-tender, active bowel sounds Extremities: no C/C/E Critical Care - Subjective Interval Events: off Amiodarone drip converted to SR seen by cardio on oral Amiodarone denies chest pain, SOB, palpitations low BP low K , Na and P Condition: improving EKG Rhythm: Sinus Rhythm FI02: 21 Sputum Amount: None Fluids: D5NS at 50 I&O: Intake and Output 03/02/18 03/03/18 19:00 07:00 Intake Total 693.33 ml 1040 ml Output Total 490 ml 500 ml Balance 203.33 ml 540 ml Intake Oral 210 ml 440 ml IV Total 483.33 ml 600 ml Output Urine Total 490 ml 500 ml Stool Total 0 ml 0 ml # Voids 14 2 # Bowel Movements 1 1 CXR: No acute findings Jadyn Chowdary [employer] Mar 03, 2018 09:26
[2018-03-03] MEDS: Docusate 100mg cap ORAL SCH ×3 (09:28→17:11)
[2018-03-03] MEDS: Amiodarone 200mg tab ORAL SCH ×2 (09:28→20:49)
--- NOTE | 2018-03-03 11:25 | General Progress Note ---
Assessment/Plan Problem List: (1) Weak ICD Codes: R53.1 - Weakness SNOMED: 97192329 (2) Malnutrition ICD Codes: E46 - Unspecified protein-calorie malnutrition SNOMED: 12138232 (3) Dehydration ICD Codes: E86.0 - Dehydration SNOMED: 89354181 (4) Asthma ICD Codes: J45.909 - Unspecified asthma, uncomplicated SNOMED: 028795644 (5) HTN (hypertension) ICD Codes: I10 - HTN (hypertension) SNOMED: 75897187 (6) Weakness ICD Codes: R53.1 - Weakness SNOMED: 32957046 (7) Rapid atrial fibrillation ICD Codes: I48.91 - Unspecified atrial fibrillation SNOMED: 720999901 Status: unchanged Assessment/Plan ot pt diet cardio f/u ivf cbc bmp an dc plan snf Subjective Constitutional: Reports: weakness Allergies: Coded Allergies: CIPROFLOXACIN (Unverified Allergy, Unknown, 04/28/14) NITROFURANTOIN (Verified Allergy, Unknown, 02/11/16) PENICILLINS (Verified Allergy, Unknown, 02/11/16) All Systems: reviewed and negative except above Subjective calm in bed no c/o Objective Last 24 Hour Vital Signs Date Time Temp Pulse Resp B/P (MAP) Pulse Ox O2 Delivery O2 Flow Rate FiO2 03/03/18 11:00 70 18 94/64 (74) 100 03/03/18 10:00 70 21 91/64 (73) 100 03/03/18 09:28 72 03/03/18 09:00 71 20 93/65 (74) 94 03/03/18 08:36 71 95/67 03/03/18 08:00 71 03/03/18 08:00 Room Air 03/03/18 08:00 74 18 95/67 (76) 94 03/03/18 07:00 98.4 73 22 85/57 (66) 99 98.4 03/03/18 06:55 75 18 Room Air 21 03/03/18 06:00 98.1 74 22 90/58 (69) 99 98.1 03/03/18 06:00 98.4 03/03/18 05:15 100.5 03/03/18 05:00 80 22 113/74 (87) 99 03/03/18 04:00 96 22 121/72 (88) 99 03/03/18 04:00 Room Air 9/10/18 04:00 89 03/03/18 03:00 91 21 119/70 (86) 99 03/03/18 02:00 91 21 114/92 (99) 99 03/03/18 01:00 87 21 113/81 (92) 99 03/03/18 00:00 Room Air 03/03/18 00:00 98.4 83 21 102/66 (78) 99 98.4 03/03/18 00:00 83 03/02/18 23:00 83 21 106/87 (93) 98 03/02/18 22:00 83 16 90/81 (84) 98 03/02/18 21:00 82 16 104/73 (83) 98 03/02/18 20:00 80 18 Room Air 21 03/02/18 20:00 Room Air 03/02/18 20:00 98.2 79 16 102/69 (80) 98 98.2 03/02/18 20:00 77 03/02/18 19:00 94 16 112/62 (79) 98 03/02/18 18:30 89 16 110/60 (77) 98 03/02/18 18:00 98.9 98 19 98/67 (77) 97 98.9 03/02/18 17:30 90 16 115/60 (78) 98 03/02/18 17:00 95 16 117/65 (82) 98 03/02/18 16:45 102.2 03/02/18 16:30 80 15 105/50 (68) 100 03/02/18 16:00 102.2 95 14 115/56 (75) 100 102.2 03/02/18 16:00 90 03/02/18 16:00 Room Air 03/02/18 15:30 86 14 110/52 (71) 100 03/02/18 15:00 82 18 108/58 (75) 100 03/02/18 14:30 88 15 122/65 (84) 100 03/02/18 14:00 85 18 118/68 (85) 100 03/02/18 13:30 84 18 110/65 (80) 99 03/02/18 13:00 80 17 112/65 (81) 99 03/02/18 12:30 84 16 110/60 (77) 99 03/02/18 12:09 Room Air 03/02/18 12:00 99.0 81 12 115/66 (82) 97 99.0 03/02/18 12:00 75 03/02/18 11:30 87 15 118/60 (79) 98 Intake and Output 03/02/18 03/03/18 19:00 07:00 Intake Total 693.33 ml 1040 ml Output Total 490 ml 500 ml Balance 203.33 ml 540 ml Intake Oral 210 ml 440 ml IV Total 483.33 ml 600 ml Output Urine Total 490 ml 500 ml Stool Total 0 ml 0 ml # Voids 14 2 # Bowel Movements 1 1 Laboratory Tests 03/03/18 04:00: Troponin I 0.028 03/03/18 05:30: Troponin I 0.032, White Blood Count 5.8, Red Blood Count 4.08L, Hemoglobin 12.1 , Hematocrit 36.2L, Mean Corpuscular Volume 89, Mean Corpuscular Hemoglobin 29.7 , Mean Corpuscular Hemoglobin Concent 33.5, Red Cell Distribution Width 11.9, Platelet Count 84L, Mean Platelet Volume 10.1, Neutrophils (%) (Auto) , Lymphocytes (%) (Auto) , Monocytes (%) (Auto) , Eosinophils (%) (Auto) , Basophils (%) (Auto) , Differential Total Cells Counted 100, Neutrophils % ( Manual) 75, Lymphocytes % (Manual) 9L, Monocytes % (Manual) 5, Eosinophils % ( Manual) 1, Basophils % (Manual) 0, Band Neutrophils 10H, Platelet Estimate DecreasedL, Platelet Morphology Normal, Red Blood Cell Morphology Normal, Prothrombin Time 13.2H, Prothromb Time International Ratio 1.3H, Activated Partial Thromboplast Time 30, Sodium Level 130L, Potassium Level 3.1L, Chloride Level 97L, Carbon Dioxide Level 25, Anion Gap 8, Blood Urea Nitrogen 14, Creatinine 1.0, Estimat Glomerular Filtration Rate , Glucose Level 138H, Uric Acid 4.2, Calcium Level 7.9L, Phosphorus Level 1.2L, Magnesium Level 2.0, Total Bilirubin 0.6, Gamma Glutamyl Transpeptidase 154H, Aspartate Amino Transf (AST/ SGOT) 129H, Alanine Aminotransferase (ALT/SGPT) 44, Alkaline Phosphatase 64, Total Creatine Kinase 147, C-Reactive Protein, Quantitative 9.2H, Pro-B-Type Natriuretic Peptide 4185H, Total Protein 6.5, Albumin 2.3L, Globulin 4.2, Albumin/Globulin Ratio 0.5L, Triglycerides Level 121, Cholesterol Level 81, LDL Cholesterol 30, HDL Cholesterol 11L, Cholesterol/HDL Ratio 7.4H, Thyroid Stimulating Hormone (TSH) 1.468, Free Thyroxine 1.44, Digoxin Level < 0.2L Height (Feet): 5 Height (Inches): 3.00 Weight (Pounds): 122 General Appearance: lethargic EENT: normal ENT inspection Neck: normal alignment Cardiovascular: normal peripheral pulses, normal rate, regular rhythm Respiratory/Chest: chest wall non-tender, lungs clear, normal breath sounds Abdomen: normal bowel sounds, non tender, soft Extremities: normal inspection Edema: no edema noted Arm (L), no edema noted Arm (R), no edema noted Leg (L), no edema noted Leg (R), no edema noted Pedal (L), no edema noted Pedal (R), no edema noted Generalized Neurologic: responsive, motor weakness Skin: normal pigmentation, warm/dry Edy Escalera DO Mar 03, 2018 11:25
--- NOTE | 2018-03-03 13:22 | Nephrology Progress Note ---
Assessment/Plan Problem List: (1) Dehydration (2) Renal insufficiency (3) Hypokalemia (4) Alcohol abuse (5) Hyponatremia Assessment Rapid atrial fibrillation : Converted Hyponatremia: Improved Renal insufficiency / Dehydration Thrombocytopenia HTN by history now BP low Plan Amio to PO now Saline- 2D Echo noted check labs K , Mag , Phos supplement as needed Urine studies and tox screen discussed with RN Subjective ROS Limited/Unobtainable: No Constitutional: Reports: other - stronger Objective Objective Last 24 Hour Vital Signs Date Time Temp Pulse Resp B/P (MAP) Pulse Ox O2 Delivery O2 Flow Rate FiO2 03/03/18 12:05 73 03/03/18 12:03 Room Air 03/03/18 12:00 72 19 97/68 (78) 100 03/03/18 11:00 70 18 94/64 (74) 100 03/03/18 10:00 70 21 91/64 (73) 100 03/03/18 09:28 72 03/03/18 09:00 71 20 93/65 (74) 94 03/03/18 08:36 71 95/67 03/03/18 08:00 71 03/03/18 08:00 Room Air 03/03/18 08:00 74 18 95/67 (76) 94 03/03/18 07:00 98.4 73 22 85/57 (66) 99 98.4 03/03/18 06:55 75 18 Room Air 21 03/03/18 06:00 98.1 74 22 90/58 (69) 99 98.1 03/03/18 06:00 98.4 03/03/18 05:15 100.5 03/03/18 05:00 80 22 113/74 (87) 99 03/03/18 04:00 96 22 121/72 (88) 99 03/03/18 04:00 Room Air 03/03/18 04:00 89 03/03/18 03:00 91 21 119/70 (86) 99 03/03/18 02:00 91 21 114/92 (99) 99 03/03/18 01:00 87 21 113/81 (92) 99 03/03/18 00:00 Room Air 03/03/18 00:00 98.4 83 21 102/66 (78) 99 98.4 03/03/18 00:00 83 03/02/18 23:00 83 21 106/87 (93) 98 03/02/18 22:00 83 16 90/81 (84) 98 03/02/18 21:00 82 16 104/73 (83) 98 03/02/18 20:00 80 18 Room Air 21 03/02/18 20:00 Room Air 03/02/18 20:00 98.2 79 16 102/69 (80) 98 98.2 03/02/18 20:00 77 03/02/18 19:00 94 16 112/62 (79) 98 03/02/18 18:30 89 16 110/60 (77) 98 03/02/18 18:00 98.9 98 19 98/67 (77) 97 98.9 03/02/18 17:30 90 16 115/60 (78) 98 03/02/18 17:00 95 16 117/65 (82) 98 03/02/18 16:45 102.2 03/02/18 16:30 80 15 105/50 (68) 100 03/02/18 16:00 102.2 95 14 115/56 (75) 100 102.2 03/02/18 16:00 90 03/02/18 16:00 Room Air 03/02/18 15:30 86 14 110/52 (71) 100 03/02/18 15:00 82 18 108/58 (75) 100 03/02/18 14:30 88 15 122/65 (84) 100 03/02/18 14:00 85 18 118/68 (85) 100 03/02/18 13:30 84 18 110/65 (80) 99 Intake and Output 03/02/18 03/03/18 19:00 07:00 Intake Total 693.33 ml 1040 ml Output Total 490 ml 500 ml Balance 203.33 ml 540 ml Intake Oral 210 ml 440 ml IV Total 483.33 ml 600 ml Output Urine Total 490 ml 500 ml Stool Total 0 ml 0 ml # Voids 14 2 # Bowel Movements 1 1 Laboratory Tests 03/03/18 04:00: Troponin I 0.028 03/03/18 05:30: Troponin I 0.032, White Blood Count 5.8, Red Blood Count 4.08L, Hemoglobin 12.1 , Hematocrit 36.2L, Mean Corpuscular Volume 89, Mean Corpuscular Hemoglobin 29.7 , Mean Corpuscular Hemoglobin Concent 33.5, Red Cell Distribution Width 11.9, Platelet Count 84L, Mean Platelet Volume 10.1, Neutrophils (%) (Auto) , Lymphocytes (%) (Auto) , Monocytes (%) (Auto) , Eosinophils (%) (Auto) , Basophils (%) (Auto) , Differential Total Cells Counted 100, Neutrophils % ( Manual) 75, Lymphocytes % (Manual) 9L, Monocytes % (Manual) 5, Eosinophils % ( Manual) 1, Basophils % (Manual) 0, Band Neutrophils 10H, Platelet Estimate DecreasedL, Platelet Morphology Normal, Red Blood Cell Morphology Normal, Prothrombin Time 13.2H, Prothromb Time International Ratio 1.3H, Activated Partial Thromboplast Time 30, Sodium Level 130L, Potassium Level 3.1L, Chloride Level 97L, Carbon Dioxide Level 25, Anion Gap 8, Blood Urea Nitrogen 14, Creatinine 1.0, Estimat Glomerular Filtration Rate , Glucose Level 138H, Uric Acid 4.2, Calcium Level 7.9L, Phosphorus Level 1.2L, Magnesium Level 2.0, Total Bilirubin 0.6, Gamma Glutamyl Transpeptidase 154H, Aspartate Amino Transf (AST/ SGOT) 129H, Alanine Aminotransferase (ALT/SGPT) 44, Alkaline Phosphatase 64, Total Creatine Kinase 147, C-Reactive Protein, Quantitative 9.2H, Pro-B-Type Natriuretic Peptide 4185H, Total Protein 6.5, Albumin 2.3L, Globulin 4.2, Albumin/Globulin Ratio 0.5L, Triglycerides Level 121, Cholesterol Level 81, LDL Cholesterol 30, HDL Cholesterol 11L, Cholesterol/HDL Ratio 7.4H, Thyroid Stimulating Hormone (TSH) 1.468, Free Thyroxine 1.44, Digoxin Level < 0.2L Height (Feet): 5 Height (Inches): 3.00 Weight (Pounds): 122 General Appearance: no apparent distress, other - stronger Neck: limited range of motion Cardiovascular: normal rate Respiratory/Chest: decreased breath sounds Abdomen: soft Objective no change Zacarias Scott MD Mar 03, 2018 13:22
--- NOTE | 2018-03-03 13:38 | Cardiac Electrophysiology PN ---
Assessment/Plan Assessment/Plan 1. Atrial fibrillation with rapid ventricular response. The patient is on 0.25 mg po digoxin and metoprolol 25 mg daily and amiodarone 400 mg p.o. b.i.d. Echo EF 65%. Add Eliquis 5 bid 2. Hypertension. Keep the patient on metoprolol. 3. Severe hypokalemia with potassium of 2.5. Potassium was replaced. 4. Hyponatremia. Sodium was 128. Further evaluation by Dr. Scott. 5. Congestive heart failure. BNP of 4000. Her echocardiogram showed EF 65% Start Lasix 40 iv daily Subjective Subjective Remained in atrial fib with better rate now. Off iv drips. Objective Last 24 Hour Vital Signs Date Time Temp Pulse Resp B/P (MAP) Pulse Ox O2 Delivery O2 Flow Rate FiO2 03/03/18 13:00 97.5 72 22 97/88 (91) 100 97.5 03/03/18 12:05 73 03/03/18 12:03 Room Air 03/03/18 12:00 72 19 97/68 (78) 100 03/03/18 11:00 70 18 94/64 (74) 100 03/03/18 10:00 70 21 91/64 (73) 100 03/03/18 09:28 72 03/03/18 09:00 71 20 93/65 (74) 94 03/03/18 08:36 71 95/67 03/03/18 08:00 71 03/03/18 08:00 Room Air 03/03/18 08:00 74 18 95/67 (76) 94 03/03/18 07:00 98.4 73 22 85/57 (66) 99 98.4 03/03/18 06:55 75 18 Room Air 21 03/03/18 06:00 98.1 74 22 90/58 (69) 99 98.1 03/03/18 06:00 98.4 03/03/18 05:15 100.5 03/03/18 05:00 80 22 113/74 (87) 99 03/03/18 04:00 96 22 121/72 (88) 99 03/03/18 04:00 Room Air 03/03/18 04:00 89 03/03/18 03:00 91 21 119/70 (86) 99 03/03/18 02:00 91 21 114/92 (99) 99 03/03/18 01:00 87 21 113/81 (92) 99 03/03/18 00:00 Room Air 03/03/18 00:00 98.4 83 21 102/66 (78) 99 98.4 03/03/18 00:00 83 03/02/18 23:00 83 21 106/87 (93) 98 03/02/18 22:00 83 16 90/81 (84) 98 03/02/18 21:00 82 16 104/73 (83) 98 03/02/18 20:00 80 18 Room Air 21 03/02/18 20:00 Room Air 03/02/18 20:00 98.2 79 16 102/69 (80) 98 98.2 03/02/18 20:00 77 03/02/18 19:00 94 16 112/62 (79) 98 03/02/18 18:30 89 16 110/60 (77) 98 03/02/18 18:00 98.9 98 19 98/67 (77) 97 98.9 03/02/18 17:30 90 16 115/60 (78) 98 03/02/18 17:00 95 16 117/65 (82) 98 03/02/18 16:45 102.2 03/02/18 16:30 80 15 105/50 (68) 100 03/02/18 16:00 102.2 95 14 115/56 (75) 100 102.2 03/02/18 16:00 90 03/02/18 16:00 Room Air 03/02/18 15:30 86 14 110/52 (71) 100 03/02/18 15:00 82 18 108/58 (75) 100 03/02/18 14:30 88 15 122/65 (84) 100 03/02/18 14:00 85 18 118/68 (85) 100 Intake and Output 03/02/18 03/03/18 19:00 07:00 Intake Total 693.33 ml 1040 ml Output Total 490 ml 500 ml Balance 203.33 ml 540 ml Intake Oral 210 ml 440 ml IV Total 483.33 ml 600 ml Output Urine Total 490 ml 500 ml Stool Total 0 ml 0 ml # Voids 14 2 # Bowel Movements 1 1 Laboratory Tests Test 03/03/18 04:00 03/03/18 05:30 Troponin I 0.028 ng/mL (0.000-0.056) 0.032 ng/mL (0.000-0.056) White Blood Count 5.8 K/UL (4.8-10.8) Red Blood Count 4.08 M/UL (4.20-5.40) L Hemoglobin 12.1 G/DL (12.0-16.0) Hematocrit 36.2 % (37.0-47.0) L Mean Corpuscular Volume 89 FL (80-99) Mean Corpuscular Hemoglobin 29.7 PG (27.0-31.0) Mean Corpuscular Hemoglobin Concent 33.5 G/DL (32.0-36.0) Red Cell Distribution Width 11.9 % (11.6-14.8) Platelet Count 84 K/UL (150-450) L Mean Platelet Volume 10.1 FL (6.5-10.1) Neutrophils (%) (Auto) % (45.0-75.0) Lymphocytes (%) (Auto) % (20.0-45.0) Monocytes (%) (Auto) % (1.0-10.0) Eosinophils (%) (Auto) % (0.0-3.0) Basophils (%) (Auto) % (0.0-2.0) Differential Total Cells Counted 100 Neutrophils % (Manual) 75 % (45-75) Lymphocytes % (Manual) 9 % (20-45) L Monocytes % (Manual) 5 % (1-10) Eosinophils % (Manual) 1 % (0-3) Basophils % (Manual) 0 % (0-2) Band Neutrophils 10 % (0-8) H Platelet Estimate Decreased L Platelet Morphology Normal Red Blood Cell Morphology Normal Prothrombin Time 13.2 SEC (9.30-11.50) H Prothromb Time International Ratio 1.3 (0.9-1.1) H Activated Partial Thromboplast Time 30 SEC (23-33) Sodium Level 130 MMOL/L (136-145) L Potassium Level 3.1 MMOL/L (3.5-5.1) L Chloride Level 97 MMOL/L (98-107) L Carbon Dioxide Level 25 MMOL/L (21-32) Anion Gap 8 mmol/L (5-15) Blood Urea Nitrogen 14 mg/dL (7-18) Creatinine 1.0 MG/DL (0.55-1.30) Estimat Glomerular Filtration Rate mL/min (>60) Glucose Level 138 MG/DL (74-106) H Uric Acid 4.2 MG/DL (2.6-7.2) Calcium Level 7.9 MG/DL (8.5-10.1) L Phosphorus Level 1.2 MG/DL (2.5-4.9) L Magnesium Level 2.0 MG/DL (1.8-2.4) Total Bilirubin 0.6 MG/DL (0.2-1.0) Gamma Glutamyl Transpeptidase 154 U/L (5-85) H Aspartate Amino Transf (AST/SGOT) 129 U/L (15-37) H Alanine Aminotransferase (ALT/SGPT) 44 U/L (12-78) Alkaline Phosphatase 64 U/L (46-116) Total Creatine Kinase 147 U/L (26-308) C-Reactive Protein, Quantitative 9.2 mg/dL (0.00-0.90) H Pro-B-Type Natriuretic Peptide 4185 pg/mL (0-125) H Total Protein 6.5 G/DL (6.4-8.2) Albumin 2.3 G/DL (3.4-5.0) L Globulin 4.2 g/dL Albumin/Globulin Ratio 0.5 (1.0-2.7) L Triglycerides Level 121 MG/DL (30-150) Cholesterol Level 81 MG/DL (< 200) LDL Cholesterol 30 mg/dL (<100) HDL Cholesterol 11 MG/DL (40-60) L Cholesterol/HDL Ratio 7.4 (3.3-4.4) H Thyroid Stimulating Hormone (TSH) 1.468 uiU/mL (0.358-3.740) Free Thyroxine 1.44 NG/DL (0.76-1.46) Digoxin Level < 0.2 NG/ML (0.9-2.0) L Objective HEAD AND NECK: Shows no JVD. LUNGS: Clear. CARDIOVASCULAR: Irregular S1 and S2 with no gallop or murmur. ABDOMEN: Soft and nontender. EXTREMITIES: No pitting edema. Adrien Moreno MD Mar 03, 2018 13:38
[2018-03-03] MEDS ORDERED: Sodium Phosphate 30 MM in NS 275 ML IVPB SCH (15:00)
[2018-03-03] MEDS ORDERED: Tubing IV Secondary IV ONE (16:31)
[2018-03-03] MEDS ORDERED: Tubing Blood Filter IV ONE (16:31)
[2018-03-03] MEDS ORDERED: Albuterol/Ipratropium 3ml neb HHN PRN (18:30)
[2018-03-03] MEDS ORDERED: Norco 5mg/325mg tab ORAL PRN (18:30)
[2018-03-03] MEDS ORDERED: Nitroglycerin Subl 0.4mg tab SL PRN (18:35)
[2018-03-03] MEDS ORDERED: dilTIAZem HCl 25mg/5ml Inj IV PRN (19:00)
[2018-03-03] MEDS: Eliquis 2.5mg tablet ORAL SCH (20:49)
[2018-03-03] MEDS ORDERED: Eliquis 2.5mg tablet ORAL SCH (21:00)
[2018-03-04] VITALS: BP 127/81
[2018-03-04 04:00] VITALS: BP 117/69
[2018-03-04 05:37] LABS: HEMATOCRIT 35.9 % (37.0-47.0); MEAN CORPUSCULAR VOLUME 89 FL (80-99); PLATELET COUNT 109 K/UL (150-450); RED BLOOD COUNT 4.01 M/UL (4.20-5.40); RED CELL DISTRIBUTION WIDTH 12.1 % (11.6-14.8); WHITE BLOOD COUNT 6.1 K/UL (4.8-10.8)
[2018-03-04 06:25] LABS: ALANINE AMINOTRANSFERASE 44 U/L (12-78); ALBUMIN 2.1 G/DL (3.4-5.0); ALBUMIN/GLOBULIN RATIO 0.5 (1.0-2.7); ALKALINE PHOSPHATASE 64 U/L (46-116); ANION GAP 6 mmol/L (5-15); ASPARTATE AMINO TRANSFERASE 121 U/L (15-37); BILIRUBIN,TOTAL 0.6 MG/DL (0.2-1.0); BLOOD UREA NITROGEN 10 mg/dL (7-18); CARBON DIOXIDE 25 MMOL/L (21-32); CHLORIDE 103 MMOL/L (98-107); CREATININE 0.8 MG/DL (0.55-1.30); PHOSPHORUS 2.2 MG/DL (2.5-4.9); POTASSIUM 3.7 MMOL/L (3.5-5.1); SODIUM 134 MMOL/L (136-145)
[2018-03-04 08:00] VITALS: BP 95/62
[2018-03-04] MEDS ORDERED: Miralax 17gm pkt ORAL PRN (08:00)
[2018-03-04] MEDS ORDERED: Metoprolol Succinate XL 25mg tab ORAL SCH ×2 (09:00)
[2018-03-04] MEDS: Eliquis 2.5mg tablet ORAL SCH ×2 (09:00→20:46)
[2018-03-04] MEDS: Docusate 100mg cap ORAL SCH ×3 (09:01→17:41)
[2018-03-04] MEDS: Thiamine 100mg tab ORAL SCH (09:01)
[2018-03-04] MEDS: Amiodarone 200mg tab ORAL SCH (09:02)
--- NOTE | 2018-03-04 09:41 | Diagnostic Imaging Report ---
APPROVED REPORT CPT Code: 40360 Present Symptoms Lower Extremity Pain: Bilateral BILATERAL: Imaging reveals a patent deep venous system bilaterally. There is no evidence of thrombus within the femoral, popliteal or tibial segments. The greater saphenous veins are also within normal limits. Doppler indicates normal spontaneous flow within these segments.
--- NOTE | 2018-03-04 10:32 | Pulmonology Progress Note ---
Assessment/Plan Problems: (1) Rapid atrial fibrillation (2) Fever (3) Asthma (4) Thrombocytopenia (5) Hypokalemia (6) Alcohol abuse Assessment/Plan heart rate controlled continue current cardiac medication f/u cultures on folic acid and multivitamins ID evaluation for episodes of fever Subjective ROS Limited/Unobtainable: No Constitutional: Reports: no symptoms HEENT: Repors: no symptoms Respiratory: Reports: no symptoms Allergies: Coded Allergies: CIPROFLOXACIN (Unverified Allergy, Unknown, 04/28/14) NITROFURANTOIN (Verified Allergy, Unknown, 02/11/16) PENICILLINS (Verified Allergy, Unknown, 02/11/16) Objective Last 24 Hour Vital Signs Date Time Temp Pulse Resp B/P (MAP) Pulse Ox O2 Delivery O2 Flow Rate FiO2 03/04/18 09:01 68 03/04/18 09:00 68 95/62 03/04/18 08:00 98.1 68 18 95/62 (73) 99 98.1 03/04/18 08:00 Room Air 03/04/18 07:43 88 17 Room Air 03/04/18 05:54 99.3 03/04/18 05:24 100.4 03/04/18 04:00 99.3 85 22 117/69 (85) 94 99.3 03/04/18 04:00 Room Air 03/04/18 03:54 86 03/04/18 00:00 Room Air 03/04/18 00:00 84 03/04/18 00:00 100.4 86 21 127/81 (96) 97 100.4 03/03/18 22:15 86 18 Room Air 21 03/03/18 20:00 Room Air 03/03/18 20:00 98.7 86 20 118/74 (89) 97 98.7 03/03/18 19:10 86 18 Room Air 21 03/03/18 19:03 91 03/03/18 18:03 94 18 104/63 (77) 98 03/03/18 17:00 95 22 112/57 (75) 97 03/03/18 16:00 Room Air 03/03/18 16:00 72 03/03/18 16:00 97.6 98 19 98/71 (80) 100 97.6 03/03/18 15:00 100 22 109/64 (79) 97 03/03/18 14:00 90 19 135/88 (104) 100 03/03/18 13:00 97.5 72 22 97/88 (91) 100 97.5 03/03/18 12:05 73 03/03/18 12:03 Room Air 03/03/18 12:00 72 19 97/68 (78) 100 03/03/18 11:00 70 18 94/64 (74) 100 Intake and Output 03/03/18 03/04/18 19:00 07:00 Intake Total 985.0 ml Output Total 400 ml Balance 585.0 ml Intake Oral 400 ml IV Total 585.0 ml Output Urine Total 400 ml # Voids 100 # Bowel Movements 2 General Appearance: WD/WN, no acute distress Respiratory/Chest: chest wall non-tender, lungs clear Breasts: no masses Cardiovascular: normal peripheral pulses Genitourinary: normal external genitalia Extremities: no cyanosis Skin: no lesions Laboratory Tests 03/03/18 16:10: C-Reactive Protein, Quantitative 7.7H 03/04/18 05:15: White Blood Count 6.1, Red Blood Count 4.01L, Hemoglobin 12.0, Hematocrit 35.9L , Mean Corpuscular Volume 89, Mean Corpuscular Hemoglobin 29.9, Mean Corpuscular Hemoglobin Concent 33.4, Red Cell Distribution Width 12.1, Platelet Count 109L, Mean Platelet Volume 11.4H, Neutrophils (%) (Auto) , Lymphocytes (% ) (Auto) , Monocytes (%) (Auto) , Eosinophils (%) (Auto) , Basophils (%) (Auto) , Neutrophils % (Manual) [Pending], Lymphocytes % (Manual) [Pending], Platelet Estimate [Pending], Platelet Morphology [Pending], Sodium Level 134L, Potassium Level 3.7, Chloride Level 103, Carbon Dioxide Level 25, Anion Gap 6, Blood Urea Nitrogen 10, Creatinine 0.8, Estimat Glomerular Filtration Rate , Glucose Level 107H, Uric Acid 2.7, Calcium Level 8.0L, Phosphorus Level 2.2L, Magnesium Level 1.5L, Total Bilirubin 0.6, Aspartate Amino Transf (AST/SGOT) 121H, Alanine Aminotransferase (ALT/SGPT) 44, Alkaline Phosphatase 64, Troponin I 0.017, Pro-B -Type Natriuretic Peptide 5265H, Total Protein 6.0L, Albumin 2.1L, Globulin 3.9 , Albumin/Globulin Ratio 0.5L Current Medications Medications (Trade) Dose Ordered Sig/Homero Route PRN Reason Start Time Stop Time Status Last Admin Dose Admin Acetaminophen (Tylenol) 650 mg Q4H PRN ORAL FEVER (temp>100.5F) 03/03/18 18:30 04/01/18 18:29 03/04/18 05:24 Acetaminophen/ Hydrocodone Bitart ([place] 5/325) 1 tab Q6H PRN ORAL For Pain 03/03/18 18:30 03/09/18 18:29 Albumin Human 500 ml @ 0 mls/hr Q0M IV 03/04/18 10:00 03/04/18 11:30 Albuterol/ Ipratropium (Albuterol/ Ipratropium) 3 ml Q4H PRN HHN Shortness of Breath 03/03/18 18:30 03/07/18 18:29 Amiodarone HCl (Cordarone) 400 mg EVERY 12 HOURS ORAL 03/03/18 21:00 04/01/18 20:59 03/04/18 09:02 Apixaban (Eliquis) 5 mg Q12HR ORAL 03/03/18 21:00 04/02/18 20:59 03/04/18 09:00 Digoxin (Lanoxin) 0.25 mg DAILY ORAL 03/04/18 09:00 04/02/18 08:59 03/04/18 09:01 Diltiazem HCl (Cardizem) 10 mg Q1H PRN IV heart rate more than 120, 03/03/18 19:00 04/01/18 07:59 Docusate Sodium (Colace) 100 mg THREE TIMES A DAY ORAL 03/04/18 09:00 04/01/18 12:59 03/04/18 09:01 Folic Acid (Folate) 2 mg DAILY ORAL 03/04/18 09:00 04/01/18 11:12 03/04/18 09:02 Metoprolol Succinate (Toprol XL) 25 mg DAILY ORAL 03/04/18 09:00 04/01/18 08:59 Nitroglycerin (Ntg) 0.4 mg Q5M PRN SL Prn Chest Pain 03/03/18 18:35 04/01/18 07:59 Ondansetron HCl (Zofran) 4 mg Q6H PRN IVP Nausea & Vomiting 03/03/18 19:00 04/01/18 18:59 Pantoprazole (Protonix) 40 mg BID ORAL 03/04/18 09:00 04/01/18 08:59 03/04/18 09:02 Polyethylene Glycol (Miralax) 17 gm DAILYPRN PRN ORAL Constipation 03/04/18 08:00 04/01/18 07:59 Potassium Phosphate 30 mm/ Sodium Chloride 285 ml @ 47.5 mls/hr ONCE IV 03/04/18 13:00 03/04/18 14:00 Potassium Chloride (K-Dur) 40 meq DAILY ORAL 03/04/18 09:30 04/03/18 09:29 Temazepam (Restoril) 15 mg HSPRN PRN ORAL Insomnia 03/03/18 19:00 03/10/18 18:59 Thiamine HCl (Vitamin B1) 100 mg DAILY ORAL 03/04/18 09:00 04/02/18 08:59 03/04/18 09:01 Daylin Cooper MD Mar 04, 2018 10:32
[2018-03-04 12:00] VITALS: BP 111/71
--- NOTE | 2018-03-04 12:13 | Nephrology Progress Note ---
Assessment/Plan Problem List: (1) Dehydration (2) Renal insufficiency (3) Hypokalemia (4) Alcohol abuse (5) Hyponatremia Assessment Rapid atrial fibrillation : Converted Hyponatremia: Improved Renal insufficiency / Dehydration Thrombocytopenia HTN by history now BP low Plan Amiodarone to PO now stop Lopressor for low BP 2D Echo noted check labs K , Mag , Phos supplement as needed Urine studies and tox screen discussed with RN Subjective ROS Limited/Unobtainable: No Constitutional: Reports: malaise, weakness Objective Objective Last 24 Hour Vital Signs Date Time Temp Pulse Resp B/P (MAP) Pulse Ox O2 Delivery O2 Flow Rate FiO2 03/04/18 09:01 68 03/04/18 09:00 68 95/62 03/04/18 08:00 67 03/04/18 08:00 98.1 68 18 95/62 (73) 99 98.1 03/04/18 08:00 Room Air 03/04/18 07:43 88 17 Room Air 21 03/04/18 05:54 99.3 03/04/18 05:24 100.4 03/04/18 04:00 99.3 85 22 117/69 (85) 94 99.3 03/04/18 04:00 Room Air 03/04/18 03:54 86 03/04/18 00:00 Room Air 03/04/18 00:00 84 03/04/18 00:00 100.4 86 21 127/81 (96) 97 100.4 03/03/18 22:15 86 18 Room Air 21 03/03/18 20:00 Room Air 03/03/18 20:00 98.7 86 20 118/74 (89) 97 98.7 03/03/18 19:10 86 18 Room Air 21 03/03/18 19:03 91 03/03/18 18:03 94 18 104/63 (77) 98 03/03/18 17:00 95 22 112/57 (75) 97 03/03/18 16:00 Room Air 03/03/18 16:00 72 03/03/18 16:00 97.6 98 19 98/71 (80) 100 97.6 03/03/18 15:00 100 22 109/64 (79) 97 03/03/18 14:00 90 19 135/88 (104) 100 9/10/18 13:00 97.5 72 22 97/88 (91) 100 97.5 Intake and Output 03/03/18 03/04/18 19:00 07:00 Intake Total 985.0 ml Output Total 400 ml Balance 585.0 ml Intake Oral 400 ml IV Total 585.0 ml Output Urine Total 400 ml # Voids 100 # Bowel Movements 2 Laboratory Tests 03/03/18 16:10: C-Reactive Protein, Quantitative 7.7H 03/04/18 05:15: White Blood Count 6.1, Red Blood Count 4.01L, Hemoglobin 12.0, Hematocrit 35.9L , Mean Corpuscular Volume 89, Mean Corpuscular Hemoglobin 29.9, Mean Corpuscular Hemoglobin Concent 33.4, Red Cell Distribution Width 12.1, Platelet Count 109L, Mean Platelet Volume 11.4H, Neutrophils (%) (Auto) , Lymphocytes (% ) (Auto) , Monocytes (%) (Auto) , Eosinophils (%) (Auto) , Basophils (%) (Auto) , Differential Total Cells Counted 100, Neutrophils % (Manual) 68, Lymphocytes % (Manual) 15L, Monocytes % (Manual) 9, Eosinophils % (Manual) 1, Basophils % ( Manual) 0, Band Neutrophils 7, Platelet Estimate DecreasedL, Platelet Morphology Normal, Red Blood Cell Morphology Normal, Sodium Level 134L, Potassium Level 3.7, Chloride Level 103, Carbon Dioxide Level 25, Anion Gap 6, Blood Urea Nitrogen 10, Creatinine 0.8, Estimat Glomerular Filtration Rate , Glucose Level 107H, Uric Acid 2.7, Calcium Level 8.0L, Phosphorus Level 2.2L, Magnesium Level 1.5L, Total Bilirubin 0.6, Aspartate Amino Transf (AST/SGOT) 121H, Alanine Aminotransferase (ALT/SGPT) 44, Alkaline Phosphatase 64, Troponin I 0.017, Pro-B-Type Natriuretic Peptide 5265H, Total Protein 6.0L, Albumin 2.1L , Globulin 3.9, Albumin/Globulin Ratio 0.5L Height (Feet): 5 Height (Inches): 3.00 Weight (Pounds): 123 General Appearance: no apparent distress Cardiovascular: normal rate Respiratory/Chest: lungs clear Abdomen: soft Objective no change Zacarias Scott MD Mar 04, 2018 12:13
[2018-03-04] MEDS ORDERED: Potassium Phosphate 30 MM in NS 275 ML IV SCH (13:00)
--- NOTE | 2018-03-04 14:41 | Cardiac Electrophysiology PN ---
Assessment/Plan Assessment/Plan 1. Atrial fibrillation with rapid ventricular response. Converted to SR. Decrease digoxin to 0.125 mg po daily and decrease amiodarone to 200 daily. Echo EF 65%. On Eliquis 5 bid 2. Hypertension. Keep the patient on metoprolol. 3. Severe hypokalemia with potassium of 2.5. Potassium was replaced. 4. Hyponatremia. Sodium was 128. Further evaluation by Dr. Scott. 5. Congestive heart failure due to diastolic dysfunction. BNP of >5000. EF 65 % Start Lasix 40 iv daily DW RN Subjective Subjective Converted to SR and transferred out of ICU. Objective Last 24 Hour Vital Signs Date Time Temp Pulse Resp B/P (MAP) Pulse Ox O2 Delivery O2 Flow Rate FiO2 03/04/18 12:00 98.3 67 18 111/71 (84) 100 98.3 03/04/18 12:00 Room Air 03/04/18 09:01 68 03/04/18 09:00 68 95/62 03/04/18 08:00 67 03/04/18 08:00 98.1 68 18 95/62 (73) 99 98.1 03/04/18 08:00 Room Air 03/04/18 07:43 88 17 Room Air 21 03/04/18 05:54 99.3 03/04/18 05:24 100.4 03/04/18 04:00 99.3 85 22 117/69 (85) 94 99.3 03/04/18 04:00 Room Air 03/04/18 03:54 86 03/04/18 00:00 Room Air 03/04/18 00:00 84 03/04/18 00:00 100.4 86 21 127/81 (96) 97 100.4 03/03/18 22:15 86 18 Room Air 21 03/03/18 20:00 Room Air 03/03/18 20:00 98.7 86 20 118/74 (89) 97 98.7 03/03/18 19:10 86 18 Room Air 21 03/03/18 19:03 91 03/03/18 18:03 94 18 104/63 (77) 98 03/03/18 17:00 95 22 112/57 (75) 97 03/03/18 16:00 Room Air 03/03/18 16:00 72 03/03/18 16:00 97.6 98 19 98/71 (80) 100 97.6 03/03/18 15:00 100 22 109/64 (79) 97 Intake and Output 03/03/18 03/04/18 19:00 07:00 Intake Total 985.0 ml Output Total 400 ml Balance 585.0 ml Intake Oral 400 ml IV Total 585.0 ml Output Urine Total 400 ml # Voids 100 # Bowel Movements 2 Laboratory Tests Test 03/03/18 16:10 03/04/18 05:15 C-Reactive Protein, Quantitative 7.7 mg/dL (0.00-0.90) H White Blood Count 6.1 K/UL (4.8-10.8) Red Blood Count 4.01 M/UL (4.20-5.40) L Hemoglobin 12.0 G/DL (12.0-16.0) Hematocrit 35.9 % (37.0-47.0) L Mean Corpuscular Volume 89 FL (80-99) Mean Corpuscular Hemoglobin 29.9 PG (27.0-31.0) Mean Corpuscular Hemoglobin Concent 33.4 G/DL (32.0-36.0) Red Cell Distribution Width 12.1 % (11.6-14.8) Platelet Count 109 K/UL (150-450) L Mean Platelet Volume 11.4 FL (6.5-10.1) H Neutrophils (%) (Auto) % (45.0-75.0) Lymphocytes (%) (Auto) % (20.0-45.0) Monocytes (%) (Auto) % (1.0-10.0) Eosinophils (%) (Auto) % (0.0-3.0) Basophils (%) (Auto) % (0.0-2.0) Differential Total Cells Counted 100 Neutrophils % (Manual) 68 % (45-75) Lymphocytes % (Manual) 15 % (20-45) L Monocytes % (Manual) 9 % (1-10) Eosinophils % (Manual) 1 % (0-3) Basophils % (Manual) 0 % (0-2) Band Neutrophils 7 % (0-8) Platelet Estimate Decreased L Platelet Morphology Normal Red Blood Cell Morphology Normal Sodium Level 134 MMOL/L (136-145) L Potassium Level 3.7 MMOL/L (3.5-5.1) Chloride Level 103 MMOL/L (98-107) Carbon Dioxide Level 25 MMOL/L (21-32) Anion Gap 6 mmol/L (5-15) Blood Urea Nitrogen 10 mg/dL (7-18) Creatinine 0.8 MG/DL (0.55-1.30) Estimat Glomerular Filtration Rate mL/min (>60) Glucose Level 107 MG/DL (74-106) H Uric Acid 2.7 MG/DL (2.6-7.2) Calcium Level 8.0 MG/DL (8.5-10.1) L Phosphorus Level 2.2 MG/DL (2.5-4.9) L Magnesium Level 1.5 MG/DL (1.8-2.4) L Total Bilirubin 0.6 MG/DL (0.2-1.0) Aspartate Amino Transf (AST/SGOT) 121 U/L (15-37) H Alanine Aminotransferase (ALT/SGPT) 44 U/L (12-78) Alkaline Phosphatase 64 U/L (46-116) Troponin I 0.017 ng/mL (0.000-0.056) Pro-B-Type Natriuretic Peptide 5265 pg/mL (0-125) H Total Protein 6.0 G/DL (6.4-8.2) L Albumin 2.1 G/DL (3.4-5.0) L Globulin 3.9 g/dL Albumin/Globulin Ratio 0.5 (1.0-2.7) L Objective HEAD AND NECK: Shows no JVD. LUNGS: Clear. CARDIOVASCULAR: Regular S1 and S2 with no gallop or murmur. ABDOMEN: Soft and nontender. EXTREMITIES: No pitting edema. Adrien Moreno MD Mar 04, 2018 14:41
--- NOTE | 2018-03-04 14:49 | Cardiology Report ---
APPROVED REPORT EKG Measurement Heart [id number] Atrial fibrillation with rapid ventricular response Nonspecific ST and T wave abnormality Abnormal ECG
--- NOTE | 2018-03-04 15:01 | General Progress Note ---
Assessment/Plan Problem List: (1) Weak ICD Codes: R53.1 - Weakness SNOMED: 46796608 (2) Malnutrition ICD Codes: E46 - Unspecified protein-calorie malnutrition SNOMED: 15865580 (3) Dehydration ICD Codes: E86.0 - Dehydration SNOMED: 65157251 (4) Asthma ICD Codes: J45.909 - Unspecified asthma, uncomplicated SNOMED: 029971841 (5) HTN (hypertension) ICD Codes: I10 - HTN (hypertension) SNOMED: 19304635 (6) Weakness ICD Codes: R53.1 - Weakness SNOMED: 31588727 (7) Rapid atrial fibrillation ICD Codes: I48.91 - Unspecified atrial fibrillation SNOMED: 142488707 Status: stable, progressing Assessment/Plan ot pt diet cardio f/u ivf cbc bmp an dc plan snf Subjective Constitutional: Reports: weakness Allergies: Coded Allergies: CIPROFLOXACIN (Unverified Allergy, Unknown, 04/28/14) NITROFURANTOIN (Verified Allergy, Unknown, 02/11/16) PENICILLINS (Verified Allergy, Unknown, 02/11/16) All Systems: reviewed and negative except above Subjective calm in bed no c/o Objective Last 24 Hour Vital Signs Date Time Temp Pulse Resp B/P (MAP) Pulse Ox O2 Delivery O2 Flow Rate FiO2 03/04/18 12:00 98.3 67 18 111/71 (84) 100 98.3 03/04/18 12:00 Room Air 03/04/18 09:01 68 03/04/18 09:00 68 95/62 03/04/18 08:00 67 03/04/18 08:00 98.1 68 18 95/62 (73) 99 98.1 03/04/18 08:00 Room Air 03/04/18 07:43 88 17 Room Air 21 03/04/18 05:54 99.3 03/04/18 05:24 100.4 03/04/18 04:00 99.3 85 22 117/69 (85) 94 99.3 03/04/18 04:00 Room Air 03/04/18 03:54 86 03/04/18 00:00 Room Air 03/04/18 00:00 84 03/04/18 00:00 100.4 86 21 127/81 (96) 97 100.4 03/03/18 22:15 86 18 Room Air 21 03/03/18 20:00 Room Air 03/03/18 20:00 98.7 86 20 118/74 (89) 97 98.7 03/03/18 19:10 86 18 Room Air 21 03/03/18 19:03 91 03/03/18 18:03 94 18 104/63 (77) 98 03/03/18 17:00 95 22 112/57 (75) 97 03/03/18 16:00 Room Air 03/03/18 16:00 72 03/03/18 16:00 97.6 98 19 98/71 (80) 100 97.6 Intake and Output 03/03/18 03/04/18 19:00 07:00 Intake Total 985.0 ml Output Total 400 ml Balance 585.0 ml Intake Oral 400 ml IV Total 585.0 ml Output Urine Total 400 ml # Voids 100 # Bowel Movements 2 Laboratory Tests 03/03/18 16:10: C-Reactive Protein, Quantitative 7.7H 03/04/18 05:15: White Blood Count 6.1, Red Blood Count 4.01L, Hemoglobin 12.0, Hematocrit 35.9L , Mean Corpuscular Volume 89, Mean Corpuscular Hemoglobin 29.9, Mean Corpuscular Hemoglobin Concent 33.4, Red Cell Distribution Width 12.1, Platelet Count 109L, Mean Platelet Volume 11.4H, Neutrophils (%) (Auto) , Lymphocytes (% ) (Auto) , Monocytes (%) (Auto) , Eosinophils (%) (Auto) , Basophils (%) (Auto) , Differential Total Cells Counted 100, Neutrophils % (Manual) 68, Lymphocytes % (Manual) 15L, Monocytes % (Manual) 9, Eosinophils % (Manual) 1, Basophils % ( Manual) 0, Band Neutrophils 7, Platelet Estimate DecreasedL, Platelet Morphology Normal, Red Blood Cell Morphology Normal, Sodium Level 134L, Potassium Level 3.7, Chloride Level 103, Carbon Dioxide Level 25, Anion Gap 6, Blood Urea Nitrogen 10, Creatinine 0.8, Estimat Glomerular Filtration Rate , Glucose Level 107H, Uric Acid 2.7, Calcium Level 8.0L, Phosphorus Level 2.2L, Magnesium Level 1.5L, Total Bilirubin 0.6, Aspartate Amino Transf (AST/SGOT) 121H, Alanine Aminotransferase (ALT/SGPT) 44, Alkaline Phosphatase 64, Troponin I 0.017, Pro-B-Type Natriuretic Peptide 5265H, Total Protein 6.0L, Albumin 2.1L , Globulin 3.9, Albumin/Globulin Ratio 0.5L Height (Feet): 5 Height (Inches): 3.00 Weight (Pounds): 123 General Appearance: lethargic EENT: normal ENT inspection Neck: normal alignment Cardiovascular: normal peripheral pulses, normal rate, regular rhythm Respiratory/Chest: chest wall non-tender, lungs clear, normal breath sounds Abdomen: normal bowel sounds, non tender, soft Extremities: normal inspection Edema: no edema noted Arm (L), no edema noted Arm (R), no edema noted Leg (L), no edema noted Leg (R), no edema noted Pedal (L), no edema noted Pedal (R), no edema noted Generalized Neurologic: responsive, motor weakness Skin: normal pigmentation, warm/dry Edy Escalera DO Mar 04, 2018 15:01
[2018-03-04 16:00] VITALS: BP 127/79
[2018-03-04 20:00] VITALS: BP 120/73
[2018-03-05] VITALS: BP 117/64
[2018-03-05 04:00] VITALS: BP 143/60
[2018-03-05 08:00] VITALS: BP 130/75
--- NOTE | 2018-03-05 08:08 | Physician Query ---
--------- THIS DOCUMENT IS A PERMANENT PART OF THE MEDICAL RECORD --------- PLEASE COMPLETE THE DOCUMENT BEFORE SIGNING Dear Dr. Moreno Date: 03/05/2018 Grounds Maintenance Manager/CDS Name: Natividad Zuluaga Grounds Maintenance Manager / CDS Phone # [phone] Exercise your independent professional judgment when responding to query. Question asked do not imply a particular answer is desired/expected Clinical Documentation States: "CHF" and "CHF with diastolic dysfunction" documented in consult and progress notes. Clinical Findings Show: BNP: 1446 -----> 5265, Medications: IV Furosemide, Metoprolol Can you please clarify the acuity of the condition: [ ] Acute [ ] Chronic [ ] Acute on Chronic [ ] Other: [ ] Clinically undeterminable Condition Present on Admission: [ ] Yes [ ] No [ ]Clinically Undeterminable Please also document in your Progress Notes and/or Discharge Summary and indicate if the condition was present on admission. Mar VAZQUEZ
[2018-03-05] MEDS: Eliquis 2.5mg tablet ORAL SCH ×2 (08:24→21:26)
[2018-03-05] MEDS: Thiamine 100mg tab ORAL SCH (08:24)
[2018-03-05] MEDS: Docusate 100mg cap ORAL SCH ×3 (08:25→17:17)
[2018-03-05] MEDS ORDERED: Amiodarone 200mg tab ORAL SCH (09:00)
[2018-03-05] MEDS ORDERED: Digoxin 0.125mg tab ORAL SCH (09:00)
--- NOTE | 2018-03-05 09:55 | Consultation ---
History of Present Illness General Date patient seen: Mar 05, 2018 Chief Complaint: Diarrhea Reason for Consultation: Fever Present Illness HPI Ms Gamboa is a 72 yo female who presented to the ED on 03/02/18 and have A. fib RVR and dehydration. She was brought to the ED by a friend for weakness and lethargy. She also reports that she had some coughing for the last week or so. These were her only complaints. She was admitted and her RVR was controlled with amiodarone. She developed a fever of 102 later on the day of admit and then had low grade fevers again on 03/03/18 and 03/04/18. She had now been afebrile for more than 24hr. She was not given any abx and no cultures were taken. She has had no leukocytosis and her UA was negative. ID was consulted for fever Today she reports that she feel fine. Denies F/C/N/V/D, SOB and dysuria. Mild cough still. No CP or palpitations. PMHx: Asthma HTN PSHx None SocHX Occasional EtOH No C/D FamHx Non-contributory Allergies: Coded Allergies: CIPROFLOXACIN (Unverified Allergy, Unknown, 04/28/14) NITROFURANTOIN (Verified Allergy, Unknown, 02/11/16) PENICILLINS (Verified Allergy, Unknown, 02/11/16) Medication History Scheduled Albuterol Sulfate (Ventolin Hfa), 1 PUFF INH EVERY 6 HOURS Albuterol Sulfate* (Albuterol Sulfate Hhn*), 2.5 MG HHN Q6H, (Reported) Albuterol Sulfate* (Albuterol Sulfate Hhn*), 2.5 MG HHN TIDRT Amlodipine Besylate (Norvasc), 5 MG ORAL DAILY Amlodipine Besylate (Norvasc), 5 MG ORAL DAILY Aspirin* (Aspir 81*), 81 MG ORAL DAILY, (Reported) Docusate Sodium* (Colace*), 100 MG ORAL THREE TIMES A DAY Doxycycline Hyclate (Doxycycline Hyclate), 100 MG ORAL EVERY 12 HOURS Metoprolol Succinate* (Metoprolol Succinate*), 25 MG ORAL DAILY Metoprolol Succinate* (Metoprolol Succinate*), 25 MG ORAL DAILY, (Reported) Metoprolol Tartrate (Metoprolol Tartrate), PO DAILY, (Reported) Nitrofurantoin Monohyd/M-Cryst* (Macrobid 100 Mg*), 100 MG ORAL EVERY 12 HOURS Permethrin* (Elimite*), 1 APPLIC TOPIC ONCE Prednisone* (Prednisone*), 40 MG ORAL DAILY Ranitidine Hcl* (Zantac*), 150 MG ORAL TWICE A DAY Thiamine Hcl (Vitamin B1*), 100 MG ORAL DAILY Trimethoprim/Sulfamethoxazole 160/800* (Bactrim Ds Tablet*), 1 TAB ORAL TWICE A DAY Trimethoprim/Sulfamethoxazole 160/800* (Bactrim Ds Tablet*), 1 TAB ORAL Q12H Scheduled PRN Acetaminophen* (Acetaminophen 325MG Tablet*), 650 MG ORAL Q8H PRN for Mild Pain/ Temp > 100.5 Diphenhydramine Hcl* (Benadryl*), 25 MG ORAL Q6H PRN for Itching Diphenhydramine Hcl* (Benadryl*), 25 MG ORAL Q6H PRN Hydrocodone Bit/Acetaminophen 5-325* ([place] 5-325*), 1 TAB ORAL Q6H PRN Zolpidem Tartrate* (Ambien*), 5 MG ORAL HSPRN PRN Miscellaneous Medications Albuterol Sulfate* (Proair Hfa*), (Reported) Patient History Healthcare decision maker Resuscitation status Full Code Advanced Directive on File No Review of Systems All Other Systems: negative except mentioned in HPI Physical Exam Physical Exam Narrative Gen: NAD, thin frail looking woman, alert HEENT: NCAT, MMM, EOMI, PERRL, No Oral lesion, no scleral icterus~ NECK: full range of motion, supple, no meningismus, No LAD, No JVD LUNGS: CTAB, No W/C, No Accessory muscle use CARDS: RRR, S1, S2, No M/R/G,~ ABD: Soft, NT, ND, No R/G, + BS, No HSM, No Masses : Deferred Ext: C/C/E, Pulses 2+ B/L (DP, Rad):~ NEURO: A/O x 4, Strength and Sensation Grossly intact PSYCH: mood/affect normal SKIN: warm/dry, No rashes, Last 24 Hour Vital Signs Date Time Temp Pulse Resp B/P (MAP) Pulse Ox O2 Delivery O2 Flow Rate FiO2 03/05/18 09:00 Room Air 03/05/18 08:24 70 03/05/18 08:00 67 03/05/18 08:00 97.5 70 19 130/75 (93) 98 97.5 03/05/18 04:00 73 03/05/18 04:00 98.4 68 20 143/60 (87) 98 98.4 03/05/18 00:00 66 03/05/18 00:00 99.1 73 22 117/64 (81) 98 99.1 03/04/18 21:00 Room Air 03/04/18 20:40 90 18 Room Air 21 03/04/18 20:00 92 03/04/18 20:00 99.3 97 24 120/73 (89) 92 99.3 03/04/18 16:00 Room Air 03/04/18 16:00 98.2 81 18 127/79 (95) 95 98.2 03/04/18 15:42 79 03/04/18 12:00 98.3 67 18 111/71 (84) 100 98.3 03/04/18 12:00 Room Air 03/04/18 11:55 70 Intake and Output 03/04/18 03/05/18 19:00 07:00 Intake Total 550 ml Output Total 300 ml Balance 250 ml Intake Oral 550 ml Output Urine Total 300 ml # Voids 100 # Bowel Movements 6 Height (Feet): 5 Height (Inches): 3.00 Weight (Pounds): 123 Medications Current Medications Medications (Trade) Dose Ordered Sig/Homero Route PRN Reason Start Time Stop Time Status Last Admin Dose Admin Acetaminophen (Tylenol) 650 mg Q4H PRN ORAL FEVER (temp>100.5F) 03/03/18 18:30 04/01/18 18:29 03/04/18 05:24 Acetaminophen/ Hydrocodone Bitart ([place] 5/325) 1 tab Q6H PRN ORAL For Pain 03/03/18 18:30 03/09/18 18:29 Albuterol/ Ipratropium (Albuterol/ Ipratropium) 3 ml Q4H PRN HHN Shortness of Breath 03/03/18 18:30 03/07/18 18:29 Amiodarone HCl (Cordarone) 200 mg DAILY ORAL 03/05/18 09:00 04/01/18 20:59 03/05/18 08:23 Apixaban (Eliquis) 5 mg Q12HR ORAL 03/03/18 21:00 04/02/18 20:59 03/05/18 08:24 Digoxin (Lanoxin) 0.125 mg DAILY ORAL 03/05/18 09:00 04/02/18 08:59 03/05/18 08:24 Diltiazem HCl (Cardizem) 10 mg Q1H PRN IV heart rate more than 120, 03/03/18 19:00 04/01/18 07:59 Docusate Sodium (Colace) 100 mg THREE TIMES A DAY ORAL 03/04/18 09:00 04/01/18 12:59 03/05/18 08:25 Folic Acid (Folate) 2 mg DAILY ORAL 03/04/18 09:00 04/01/18 11:12 03/05/18 08:22 Furosemide (Lasix) 40 mg DAILY IV 03/05/18 09:00 04/04/18 08:59 03/05/18 08:25 Nitroglycerin (Ntg) 0.4 mg Q5M PRN SL Prn Chest Pain 03/03/18 18:35 04/01/18 07:59 Ondansetron HCl (Zofran) 4 mg Q6H PRN IVP Nausea & Vomiting 03/03/18 19:00 04/01/18 18:59 Pantoprazole (Protonix) 40 mg BID ORAL 03/04/18 09:00 04/01/18 08:59 03/05/18 08:25 Polyethylene Glycol (Miralax) 17 gm DAILYPRN PRN ORAL Constipation 03/04/18 08:00 04/01/18 07:59 Potassium Chloride (K-Dur) 40 meq DAILY ORAL 03/04/18 09:30 04/03/18 09:29 03/05/18 08:25 Temazepam (Restoril) 15 mg HSPRN PRN ORAL Insomnia 03/03/18 19:00 03/10/18 18:59 Thiamine HCl (Vitamin B1) 100 mg DAILY ORAL 03/04/18 09:00 04/02/18 08:59 03/05/18 08:24 Assessment/Plan Assessment/Plan A: 72 yo female who presented to the ED on 03/02/18 and have A. fib RVR and dehydration. Fever Resolved - Unclear etiology Medication (Suspect Amiodarone) or Viral URI - No signs of active infection - UA neg, UTox Neg, No Leukocytosis Afib RVR Resolved Dehydration HTN Asthma P: Continue to monitor off abx Monitor CBC and Temps Supportive care Thank you for this consult. We will continue to follow the patient during this hospitalization. Chris Linares MD Mar 05, 2018 09:55
--- NOTE | 2018-03-05 11:00 | Pulmonology Progress Note ---
Assessment/Plan Problems: (1) Rapid atrial fibrillation (2) Fever (3) Asthma (4) Thrombocytopenia (5) Hypokalemia (6) Alcohol abuse Assessment/Plan heart rate controlled on digoxin .125 and amiodarone 200 continue current cardiac medication f/u cultures on folic acid and multivitamins ID evaluation for episodes of fever yesterday afebrile now dc planning Subjective ROS Limited/Unobtainable: No Constitutional: Reports: no symptoms HEENT: Repors: no symptoms Respiratory: Reports: no symptoms Allergies: Coded Allergies: CIPROFLOXACIN (Unverified Allergy, Unknown, 04/28/14) NITROFURANTOIN (Verified Allergy, Unknown, 02/11/16) PENICILLINS (Verified Allergy, Unknown, 02/11/16) Objective Last 24 Hour Vital Signs Date Time Temp Pulse Resp B/P (MAP) Pulse Ox O2 Delivery O2 Flow Rate FiO2 03/05/18 09:00 Room Air 03/05/18 08:24 70 03/05/18 08:00 67 03/05/18 08:00 97.5 70 19 130/75 (93) 98 97.5 03/05/18 04:00 73 03/05/18 04:00 98.4 68 20 143/60 (87) 98 98.4 03/05/18 00:00 66 03/05/18 00:00 99.1 73 22 117/64 (81) 98 99.1 03/04/18 21:00 Room Air 03/04/18 20:40 90 18 Room Air 21 03/04/18 20:00 92 03/04/18 20:00 99.3 97 24 120/73 (89) 92 99.3 03/04/18 16:00 Room Air 03/04/18 16:00 98.2 81 18 127/79 (95) 95 98.2 03/04/18 15:42 79 03/04/18 12:00 98.3 67 18 111/71 (84) 100 98.3 03/04/18 12:00 Room Air 03/04/18 11:55 70 Intake and Output 03/04/18 03/05/18 19:00 07:00 Intake Total 550 ml Output Total 300 ml Balance 250 ml Intake Oral 550 ml Output Urine Total 300 ml # Voids 100 # Bowel Movements 6 General Appearance: cachetic HEENT: normocephalic, atraumatic Respiratory/Chest: chest wall non-tender, lungs clear Breasts: no masses Cardiovascular: normal peripheral pulses, normal rate Abdomen: normal bowel sounds, soft, non tender Genitourinary: normal external genitalia Extremities: no cyanosis Neurologic/Psychiatric: potato picker II-XII grossly normal Current Medications Medications (Trade) Dose Ordered Sig/Homero Route PRN Reason Start Time Stop Time Status Last Admin Dose Admin Acetaminophen (Tylenol) 650 mg Q4H PRN ORAL FEVER (temp>100.5F) 03/03/18 18:30 04/01/18 18:29 03/04/18 05:24 Acetaminophen/ Hydrocodone Bitart ([place] 5/325) 1 tab Q6H PRN ORAL For Pain 03/03/18 18:30 03/09/18 18:29 Albuterol/ Ipratropium (Albuterol/ Ipratropium) 3 ml Q4H PRN HHN Shortness of Breath 03/03/18 18:30 03/07/18 18:29 Amiodarone HCl (Cordarone) 200 mg DAILY ORAL 03/05/18 09:00 04/01/18 20:59 03/05/18 08:23 Apixaban (Eliquis) 5 mg Q12HR ORAL 03/03/18 21:00 04/02/18 20:59 03/05/18 08:24 Digoxin (Lanoxin) 0.125 mg DAILY ORAL 03/05/18 09:00 04/02/18 08:59 03/05/18 08:24 Diltiazem HCl (Cardizem) 10 mg Q1H PRN IV heart rate more than 120, 03/03/18 19:00 04/01/18 07:59 Docusate Sodium (Colace) 100 mg THREE TIMES A DAY ORAL 03/04/18 09:00 04/01/18 12:59 03/05/18 08:25 Folic Acid (Folate) 2 mg DAILY ORAL 03/04/18 09:00 04/01/18 11:12 03/05/18 08:22 Furosemide (Lasix) 40 mg DAILY IV 03/05/18 09:00 04/04/18 08:59 03/05/18 08:25 Nitroglycerin (Ntg) 0.4 mg Q5M PRN SL Prn Chest Pain 03/03/18 18:35 04/01/18 07:59 Ondansetron HCl (Zofran) 4 mg Q6H PRN IVP Nausea & Vomiting 03/03/18 19:00 04/01/18 18:59 Pantoprazole (Protonix) 40 mg BID ORAL 03/04/18 09:00 04/01/18 08:59 03/05/18 08:25 Polyethylene Glycol (Miralax) 17 gm DAILYPRN PRN ORAL Constipation 03/04/18 08:00 04/01/18 07:59 Potassium Chloride (K-Dur) 40 meq DAILY ORAL 03/04/18 09:30 04/03/18 09:29 03/05/18 08:25 Temazepam (Restoril) 15 mg HSPRN PRN ORAL Insomnia 03/03/18 19:00 03/10/18 18:59 Thiamine HCl (Vitamin B1) 100 mg DAILY ORAL 03/04/18 09:00 04/02/18 08:59 03/05/18 08:24 Daylin Cooper MD Mar 05, 2018 11:00
[2018-03-05 12:00] VITALS: BP 117/64
--- NOTE | 2018-03-05 12:12 | Cardiac Electrophysiology PN ---
Assessment/Plan Assessment/Plan 1. Atrial fibrillation with rapid ventricular response. Converted to SR. On Digoxin 0.125 mg po daily and amiodarone 200 daily. Echo EF 65%. On Eliquis 5 bid 2. Hypertension. Keep the patient on metoprolol and Lasix. 3. Severe hypokalemia with potassium of 2.5. Potassium was replaced. 4. Hyponatremia. Sodium was 128. Further evaluation by Dr. Scott. 5. Congestive heart failure due to diastolic dysfunction. BNP of >5000. EF 65 % On Lasix 40 iv daily DW RN Subjective Subjective Remained in SR and refused labs. Going to [facility] in am Objective Last 24 Hour Vital Signs Date Time Temp Pulse Resp B/P (MAP) Pulse Ox O2 Delivery O2 Flow Rate FiO2 03/05/18 09:00 Room Air 03/05/18 08:24 70 03/05/18 08:00 67 03/05/18 08:00 97.5 70 19 130/75 (93) 98 97.5 03/05/18 04:00 73 03/05/18 04:00 98.4 68 20 143/60 (87) 98 98.4 03/05/18 00:00 66 03/05/18 00:00 99.1 73 22 117/64 (81) 98 99.1 03/04/18 21:00 Room Air 03/04/18 20:40 90 18 Room Air 21 03/04/18 20:00 92 03/04/18 20:00 99.3 97 24 120/73 (89) 92 99.3 03/04/18 16:00 Room Air 03/04/18 16:00 98.2 81 18 127/79 (95) 95 98.2 03/04/18 15:42 79 Intake and Output 03/04/18 03/05/18 19:00 07:00 Intake Total 550 ml Output Total 300 ml Balance 250 ml Intake Oral 550 ml Output Urine Total 300 ml # Voids 100 # Bowel Movements 6 Objective HEAD AND NECK: Shows no JVD. LUNGS: Clear. CARDIOVASCULAR: Regular S1 and S2 with no gallop or murmur. ABDOMEN: Soft and nontender. EXTREMITIES: No pitting edema. Adrien Moreno MD Mar 05, 2018 12:12
--- NOTE | 2018-03-05 12:28 | Nephrology Progress Note ---
Assessment/Plan Problem List: (1) Dehydration (2) Renal insufficiency (3) Hypokalemia (4) Alcohol abuse (5) Hyponatremia Assessment Rapid atrial fibrillation : Converted Hyponatremia: Improved Renal insufficiency / Dehydration Thrombocytopenia HTN by history now BP low Plan Amiodarone to PO now stop Lopressor for low BP 2D Echo noted check labs K , Mag , Phos supplement as needed Urine studies and tox screen discussed with RN to med surg DC in am ECF Subjective ROS Limited/Unobtainable: No Constitutional: Reports: malaise Objective Objective Last 24 Hour Vital Signs Date Time Temp Pulse Resp B/P (MAP) Pulse Ox O2 Delivery O2 Flow Rate FiO2 03/05/18 12:00 99.1 73 22 117/64 (81) 98 99.1 03/05/18 09:00 Room Air 03/05/18 08:24 70 03/05/18 08:00 67 03/05/18 08:00 97.5 70 19 130/75 (93) 98 97.5 03/05/18 04:00 73 03/05/18 04:00 98.4 68 20 143/60 (87) 98 98.4 03/05/18 00:00 66 03/05/18 00:00 99.1 73 22 117/64 (81) 98 99.1 03/04/18 21:00 Room Air 03/04/18 20:40 90 18 Room Air 21 03/04/18 20:00 92 03/04/18 20:00 99.3 97 24 120/73 (89) 92 99.3 03/04/18 16:00 Room Air 03/04/18 16:00 98.2 81 18 127/79 (95) 95 98.2 03/04/18 15:42 79 Intake and Output 03/04/18 03/05/18 19:00 07:00 Intake Total 550 ml Output Total 300 ml Balance 250 ml Intake Oral 550 ml Output Urine Total 300 ml # Voids 100 # Bowel Movements 6 Height (Feet): 5 Height (Inches): 3.00 Weight (Pounds): 123 General Appearance: no apparent distress Cardiovascular: normal rate Respiratory/Chest: lungs clear Abdomen: soft, distended Objective no change Zacarias Scott MD Mar 05, 2018 12:28
[2018-03-05] MEDS ORDERED: Sodium Phosphate 30 MM in NS 275 ML IV ONE (12:45)
--- NOTE | 2018-03-05 14:13 | General Progress Note ---
Assessment/Plan Problem List: (1) Weak ICD Codes: R53.1 - Weakness SNOMED: 21440580 (2) Malnutrition ICD Codes: E46 - Unspecified protein-calorie malnutrition SNOMED: 83171234 (3) Dehydration ICD Codes: E86.0 - Dehydration SNOMED: 72022533 (4) Asthma ICD Codes: J45.909 - Unspecified asthma, uncomplicated SNOMED: 361500715 (5) HTN (hypertension) ICD Codes: I10 - HTN (hypertension) SNOMED: 46137803 (6) Weakness ICD Codes: R53.1 - Weakness SNOMED: 84015536 (7) Rapid atrial fibrillation ICD Codes: I48.91 - Unspecified atrial fibrillation SNOMED: 701010693 Status: stable, progressing Assessment/Plan ot pt diet cardio f/u ivf cbc bmp an dc plan snf Subjective Constitutional: Reports: weakness Allergies: Coded Allergies: CIPROFLOXACIN (Unverified Allergy, Unknown, 04/28/14) NITROFURANTOIN (Verified Allergy, Unknown, 02/11/16) PENICILLINS (Verified Allergy, Unknown, 02/11/16) All Systems: reviewed and negative except above Subjective calm in bed no c/o Objective Last 24 Hour Vital Signs Date Time Temp Pulse Resp B/P (MAP) Pulse Ox O2 Delivery O2 Flow Rate FiO2 03/05/18 12:00 88 03/05/18 12:00 99.1 73 22 117/64 (81) 98 99.1 03/05/18 09:00 Room Air 03/05/18 08:24 70 03/05/18 08:00 67 03/05/18 08:00 97.5 70 19 130/75 (93) 98 97.5 03/05/18 07:10 83 20 Room Air 21 03/05/18 04:00 73 03/05/18 04:00 98.4 68 20 143/60 (87) 98 98.4 03/05/18 00:00 66 03/05/18 00:00 99.1 73 22 117/64 (81) 98 99.1 03/04/18 21:00 Room Air 03/04/18 20:40 90 18 Room Air 21 03/04/18 20:00 92 03/04/18 20:00 99.3 97 24 120/73 (89) 92 99.3 03/04/18 16:00 Room Air 03/04/18 16:00 98.2 81 18 127/79 (95) 95 98.2 03/04/18 15:42 79 Intake and Output 03/04/18 03/05/18 19:00 07:00 Intake Total 550 ml Output Total 300 ml Balance 250 ml Intake Oral 550 ml Output Urine Total 300 ml # Voids 100 # Bowel Movements 6 Height (Feet): 5 Height (Inches): 3.00 Weight (Pounds): 123 General Appearance: lethargic EENT: normal ENT inspection Neck: normal alignment Cardiovascular: normal peripheral pulses, normal rate, regular rhythm Respiratory/Chest: chest wall non-tender, lungs clear, normal breath sounds Abdomen: normal bowel sounds, non tender, soft Extremities: normal inspection Edema: no edema noted Arm (L), no edema noted Arm (R), no edema noted Leg (L), no edema noted Leg (R), no edema noted Pedal (L), no edema noted Pedal (R), no edema noted Generalized Neurologic: responsive, motor weakness Skin: normal pigmentation, warm/dry Edy Escalera DO Mar 05, 2018 14:13
[2018-03-05 16:00] VITALS: BP 117/80
[2018-03-05] MEDS ORDERED: Nystatin Powder 100,000 units/gm 15gm TOPIC SCH ×2 (18:00)
[2018-03-05] MEDS ORDERED: Norco 5mg/325mg tab ORAL PRN (20:53)
[2018-03-05] MEDS ORDERED: Miralax 17gm pkt ORAL PRN (20:53)
[2018-03-05 20:59] VITALS: BP 123/70
[2018-03-05] MEDS ORDERED: Nitroglycerin Subl 0.4mg tab SL PRN (21:00)
[2018-03-05] MEDS ORDERED: dilTIAZem HCl 25mg/5ml Inj IV PRN (21:00)
[2018-03-05] MEDS ORDERED: Albuterol/Ipratropium 3ml neb HHN PRN (22:30)
[2018-03-06 00:27] VITALS: BP 117/76
[2018-03-06 04:00] VITALS: BP 130/78
[2018-03-06 08:00] VITALS: BP 126/77
[2018-03-06] MEDS ORDERED: Digoxin 0.125mg tab ORAL SCH (09:00)
[2018-03-06] MEDS ORDERED: Thiamine 100mg tab ORAL SCH (09:00)
[2018-03-06] MEDS ORDERED: Nystatin Powder 100,000 units/gm 15gm TOPIC SCH (09:00)
[2018-03-06] MEDS ORDERED: Amiodarone 200mg tab ORAL SCH (09:00)
[2018-03-06] MEDS ORDERED: Furosemide 40mg tab ORAL SCH ×2 (09:00)
[2018-03-06] MEDS: Eliquis 2.5mg tablet ORAL SCH (09:02)
[2018-03-06] MEDS: Docusate 100mg cap ORAL SCH ×2 (09:03→13:00)
--- NOTE | 2018-03-06 09:37 | Infectious Diseases Prog Note ---
Assessment/Plan Assessment/Plan 72 yo female who presented to the ED on 03/02/18 and have A. fib RVR and dehydration. Fever Resolved (Tmax 100.1 last night) - Unclear etiology still Medication (Suspect Amiodarone) or Viral URI - No signs of active infection - UA neg, UTox Neg, No Leukocytosis Afib RVR Resolved Dehydration HTN Asthma P: Continue to monitor off abx Monitor CBC and Temps Supportive care OK to D/C from an ID perspective We will continue to follow the patient during this hospitalization. Subjective Allergies: Coded Allergies: CIPROFLOXACIN (Unverified Allergy, Unknown, 04/28/14) NITROFURANTOIN (Verified Allergy, Unknown, 02/11/16) PENICILLINS (Verified Allergy, Unknown, 02/11/16) Subjective Patient with low grade fever 100.1 last night. Now afebrile No new complaints. Denies Dysuria, SOB, CP, Palpations, N/V/D and abdominal pain. Objective Vital Signs Last 24 Hour Vital Signs Date Time Temp Pulse Resp B/P (MAP) Pulse Ox O2 Delivery O2 Flow Rate FiO2 03/06/18 09:00 55 03/06/18 04:00 97.9 58 18 130/78 (95) 100 97.9 03/06/18 00:27 97.8 60 18 117/76 (90) 99 97.8 03/05/18 21:57 99.1 03/05/18 21:48 Room Air 03/05/18 21:27 100.1 03/05/18 20:59 100.1 65 18 123/70 (87) 99 100.1 03/05/18 19:30 70 20 Room Air 21 03/05/18 16:00 73 03/05/18 16:00 97.9 73 18 117/80 (92) 98 97.9 03/05/18 12:00 88 03/05/18 12:00 99.1 73 22 117/64 (81) 98 99.1 Height (Feet): 5 Height (Inches): 3.00 Weight (Pounds): 119 Objective Gen: NAD, thin frail looking woman, alert HEENT: NCAT, MMM, EOMI, PERRL, No scleral icterus LUNGS: CTAB, No W/C, No Accessory muscle use CARDS: RRR, S1, S2, No M/R/G, ABD: Soft, NT, ND, No R/G, + BS, No HSM, No Masses Ext: C/C/E, Pulses 2+ B/L (DP, Rad): NEURO: A/O x 4, Strength and Sensation Grossly intact Current Medications Medications (Trade) Dose Ordered Sig/Homero Route PRN Reason Start Time Stop Time Status Last Admin Dose Admin Acetaminophen (Tylenol) 650 mg Q4H PRN ORAL FEVER (temp>100.5F) 03/05/18 20:50 04/01/18 20:49 03/05/18 21:27 Acetaminophen/ Hydrocodone Bitart ([place] 5/325) 1 tab Q6H PRN ORAL For Pain 03/05/18 20:53 03/12/18 20:52 Albuterol/ Ipratropium (Albuterol/ Ipratropium) 3 ml Q4H PRN HHN Shortness of Breath 03/05/18 22:30 03/07/18 18:29 Amiodarone HCl (Cordarone) 200 mg DAILY ORAL 03/06/18 09:00 04/01/18 20:59 03/06/18 09:03 Apixaban (Eliquis) 5 mg Q12HR ORAL 03/05/18 21:00 04/02/18 20:59 03/06/18 09:02 Digoxin (Lanoxin) 0.125 mg DAILY ORAL 03/06/18 09:00 04/02/18 08:59 Docusate Sodium (Colace) 100 mg THREE TIMES A DAY ORAL 03/06/18 09:00 04/01/18 12:59 03/06/18 09:03 Folic Acid (Folate) 2 mg DAILY ORAL 03/06/18 09:00 04/01/18 11:12 03/06/18 09:03 Furosemide (Lasix) 40 mg DAILY ORAL 03/06/18 09:00 04/05/18 08:59 03/06/18 09:03 Nitroglycerin (Ntg) 0.4 mg Q5M PRN SL Prn Chest Pain 03/05/18 21:00 04/01/18 07:59 Nystatin (Nystop Powder) 1 applic BID TOPIC 03/06/18 09:00 04/04/18 17:59 03/06/18 09:07 Ondansetron HCl (Zofran) 4 mg Q6H PRN IVP Nausea & Vomiting 03/05/18 20:53 04/04/18 20:52 Pantoprazole (Protonix) 40 mg BID ORAL 03/06/18 09:00 04/01/18 08:59 03/06/18 09:03 Polyethylene Glycol (Miralax) 17 gm DAILYPRN PRN ORAL Constipation 03/05/18 20:53 04/04/18 20:52 Potassium Chloride (K-Dur) 40 meq DAILY ORAL 03/06/18 09:00 04/03/18 09:29 03/06/18 09:03 Temazepam (Restoril) 15 mg HSPRN PRN ORAL Insomnia 03/05/18 20:53 03/12/18 20:52 Thiamine HCl (Vitamin B1) 100 mg DAILY ORAL 03/06/18 09:00 04/02/18 08:59 03/06/18 09:02 Chris Linares MD Mar 06, 2018 09:37
--- NOTE | 2018-03-06 10:55 | Cardiac Electrophysiology PN ---
Assessment/Plan Assessment/Plan 1. Atrial fibrillation with rapid ventricular response. Converted to SR. On Digoxin 0.125 mg po daily, amiodarone 200 daily and Eliquis 5 bid 2. Hypertension. Keep the patient on metoprolol and Lasix. 3. Severe hypokalemia with potassium of 2.5. Potassium was replaced. 4. Hyponatremia. Sodium was 128. Further evaluation by Dr. Scott. 5. Congestive heart failure due to diastolic dysfunction. BNP of >5000. EF 65 % On Lasix 40 po daily DW RN Subjective Subjective Going to [facility] today. Now iin [facility] Objective Last 24 Hour Vital Signs Date Time Temp Pulse Resp B/P (MAP) Pulse Ox O2 Delivery O2 Flow Rate FiO2 03/06/18 09:00 55 03/06/18 09:00 Room Air 03/06/18 08:00 97.9 62 18 126/77 (93) 100 97.9 03/06/18 04:00 97.9 58 18 130/78 (95) 100 97.9 03/06/18 00:27 97.8 60 18 117/76 (90) 99 97.8 03/05/18 21:57 99.1 03/05/18 21:48 Room Air 03/05/18 21:27 100.1 03/05/18 20:59 100.1 65 18 123/70 (87) 99 100.1 03/05/18 19:30 70 20 Room Air 21 03/05/18 16:00 73 03/05/18 16:00 97.9 73 18 117/80 (92) 98 97.9 03/05/18 12:00 88 03/05/18 12:00 99.1 73 22 117/64 (81) 98 99.1 Intake and Output 03/05/18 03/06/18 19:00 07:00 Intake Total 597.5 ml 240 ml Balance 597.5 ml 240 ml Intake Oral 360 ml 240 ml IV Total 237.5 ml # Voids 6 2 # Bowel Movements 2 Objective HEAD AND NECK: No JVD. LUNGS: Clear. CARDIOVASCULAR: Regular S1 and S2 with no gallop or murmur. ABDOMEN: Soft and nontender. EXTREMITIES: No pitting edema. Adrien Moreno MD Mar 06, 2018 10:55
[2018-03-06 12:00] VITALS: BP 119/79
--- NOTE | 2018-03-06 12:37 | General Progress Note ---
Assessment/Plan Problem List: (1) Weak ICD Codes: R53.1 - Weakness SNOMED: 97147385 (2) Malnutrition ICD Codes: E46 - Unspecified protein-calorie malnutrition SNOMED: 28298065 (3) Dehydration ICD Codes: E86.0 - Dehydration SNOMED: 97805616 (4) Asthma ICD Codes: J45.909 - Unspecified asthma, uncomplicated SNOMED: 851567783 (5) HTN (hypertension) ICD Codes: I10 - HTN (hypertension) SNOMED: 95110718 (6) Weakness ICD Codes: R53.1 - Weakness SNOMED: 69490853 (7) Rapid atrial fibrillation ICD Codes: I48.91 - Unspecified atrial fibrillation SNOMED: 104799801 Status: stable, progressing Assessment/Plan ot pt diet cardio f/u ivf dc to snf if clear Subjective Allergies: Coded Allergies: CIPROFLOXACIN (Unverified Allergy, Unknown, 04/28/14) NITROFURANTOIN (Verified Allergy, Unknown, 02/11/16) PENICILLINS (Verified Allergy, Unknown, 02/11/16) All Systems: reviewed and negative except above Subjective calm in bed no c/o Objective Last 24 Hour Vital Signs Date Time Temp Pulse Resp B/P (MAP) Pulse Ox O2 Delivery O2 Flow Rate FiO2 03/06/18 09:00 55 03/06/18 09:00 Room Air 03/06/18 08:00 97.9 62 18 126/77 (93) 100 97.9 03/06/18 04:00 97.9 58 18 130/78 (95) 100 97.9 03/06/18 00:27 97.8 60 18 117/76 (90) 99 97.8 03/05/18 21:57 99.1 03/05/18 21:48 Room Air 03/05/18 21:27 100.1 03/05/18 20:59 100.1 65 18 123/70 (87) 99 100.1 03/05/18 19:30 70 20 Room Air 21 03/05/18 16:00 73 03/05/18 16:00 97.9 73 18 117/80 (92) 98 97.9 Intake and Output 03/05/18 03/06/18 19:00 07:00 Intake Total 597.5 ml 240 ml Balance 597.5 ml 240 ml Intake Oral 360 ml 240 ml IV Total 237.5 ml # Voids 6 2 # Bowel Movements 2 Height (Feet): 5 Height (Inches): 3.00 Weight (Pounds): 119 General Appearance: lethargic EENT: normal ENT inspection Neck: normal alignment Cardiovascular: normal peripheral pulses, normal rate, regular rhythm Respiratory/Chest: chest wall non-tender, lungs clear, normal breath sounds Abdomen: normal bowel sounds, non tender, soft Extremities: normal inspection Edema: no edema noted Arm (L), no edema noted Arm (R), no edema noted Leg (L), no edema noted Leg (R), no edema noted Pedal (L), no edema noted Pedal (R), no edema noted Generalized Neurologic: motor weakness Skin: normal pigmentation, warm/dry Edy Escalera DO Mar 06, 2018 12:37
[2018-03-06] MEDS ORDERED: PACERONE200 MG ORAL (12:48)
[2018-03-06] MEDS ORDERED: ELIQUIS5 MG PO (12:52)
[2018-03-06] MEDS ORDERED: FOLIC ACID1 MG ORAL (12:54)
[2018-03-06] MEDS ORDERED: DIGOXIN125 MCG ORAL (12:54)
[2018-03-06] MEDS ORDERED: IPRATROPIU0.2 MG/1 M HHN (12:55)
[2018-03-06] MEDS ORDERED: FUROSEMIDE40 MG ORAL (12:55)
[2018-03-06] MEDS ORDERED: NITROSTAT0.4 M1 SL (12:57)
[2018-03-06] MEDS ORDERED: BABY POWDER1 APPLIC TOPIC (12:57)
[2018-03-06] MEDS ORDERED: PANTOPRAZOLE SO40 MG ORAL (12:58)
[2018-03-06] MEDS ORDERED: POTASSIUM CHLO20 ME1 ORAL (12:58)
[2018-03-06] MEDS ORDERED: VITAMIN B-1100 M2 PO (12:59)
[2018-03-06] MEDS ORDERED: RESTORIL15 MG ORAL (12:59)
--- NOTE | 2018-03-06 13:07 | Nephrology Progress Note ---
Assessment/Plan Problem List: (1) Dehydration (2) Renal insufficiency (3) Hypokalemia (4) Alcohol abuse (5) Hyponatremia Assessment Rapid atrial fibrillation : Converted Hyponatremia: Improved Renal insufficiency / Dehydration Thrombocytopenia HTN by history now BP low Plan Amiodarone to PO now stop Lopressor for low BP 2D Echo noted check labs K , Mag , Phos supplement as needed Urine studies and tox screen discussed with RN to med surg DC ECF Subjective ROS Limited/Unobtainable: No Objective Objective Last 24 Hour Vital Signs Date Time Temp Pulse Resp B/P (MAP) Pulse Ox O2 Delivery O2 Flow Rate FiO2 03/06/18 09:00 55 03/06/18 09:00 Room Air 03/06/18 08:00 97.9 62 18 126/77 (93) 100 97.9 03/06/18 04:00 97.9 58 18 130/78 (95) 100 97.9 03/06/18 00:27 97.8 60 18 117/76 (90) 99 97.8 03/05/18 21:57 99.1 03/05/18 21:48 Room Air 03/05/18 21:27 100.1 03/05/18 20:59 100.1 65 18 123/70 (87) 99 100.1 03/05/18 19:30 70 20 Room Air 21 03/05/18 16:00 73 03/05/18 16:00 97.9 73 18 117/80 (92) 98 97.9 Intake and Output 03/05/18 03/06/18 19:00 07:00 Intake Total 597.5 ml 240 ml Balance 597.5 ml 240 ml Intake Oral 360 ml 240 ml IV Total 237.5 ml # Voids 6 2 # Bowel Movements 2 Current Medications Medications (Trade) Dose Ordered Sig/Homero Route PRN Reason Start Time Stop Time Status Last Admin Dose Admin Acetaminophen (Tylenol) 650 mg Q4H PRN ORAL FEVER (temp>100.5F) 03/05/18 20:50 04/01/18 20:49 03/05/18 21:27 Acetaminophen/ Hydrocodone Bitart ([place] 5/325) 1 tab Q6H PRN ORAL For Pain 03/05/18 20:53 03/12/18 20:52 Albuterol/ Ipratropium (Albuterol/ Ipratropium) 3 ml Q4H PRN HHN Shortness of Breath 03/05/18 22:30 03/07/18 18:29 Amiodarone HCl (Cordarone) 200 mg DAILY ORAL 03/06/18 09:00 04/01/18 20:59 03/06/18 09:03 Apixaban (Eliquis) 5 mg Q12HR ORAL 03/05/18 21:00 04/02/18 20:59 03/06/18 09:02 Digoxin (Lanoxin) 0.125 mg DAILY ORAL 03/06/18 09:00 04/02/18 08:59 Docusate Sodium (Colace) 100 mg THREE TIMES A DAY ORAL 03/06/18 09:00 04/01/18 12:59 03/06/18 09:03 Folic Acid (Folate) 2 mg DAILY ORAL 03/06/18 09:00 04/01/18 11:12 03/06/18 09:03 Furosemide (Lasix) 40 mg DAILY ORAL 03/06/18 09:00 04/05/18 08:59 03/06/18 09:03 Nitroglycerin (Ntg) 0.4 mg Q5M PRN SL Prn Chest Pain 03/05/18 21:00 04/01/18 07:59 Nystatin (Nystop Powder) 1 applic BID TOPIC 03/06/18 09:00 04/04/18 17:59 03/06/18 09:07 Ondansetron HCl (Zofran) 4 mg Q6H PRN IVP Nausea & Vomiting 03/05/18 20:53 04/04/18 20:52 Pantoprazole (Protonix) 40 mg BID ORAL 03/06/18 09:00 04/01/18 08:59 03/06/18 09:03 Polyethylene Glycol (Miralax) 17 gm DAILYPRN PRN ORAL Constipation 03/05/18 20:53 04/04/18 20:52 Potassium Chloride (K-Dur) 40 meq DAILY ORAL 03/06/18 09:00 04/03/18 09:29 03/06/18 09:03 Temazepam (Restoril) 15 mg HSPRN PRN ORAL Insomnia 03/05/18 20:53 03/12/18 20:52 Thiamine HCl (Vitamin B1) 100 mg DAILY ORAL 03/06/18 09:00 04/02/18 08:59 03/06/18 09:02 Height (Feet): 5 Height (Inches): 3.00 Weight (Pounds): 119 General Appearance: no apparent distress, other - weak Cardiovascular: normal rate Respiratory/Chest: lungs clear Abdomen: soft, distended Objective no change Zacarias Scott MD Mar 06, 2018 13:06
--- NOTE | 2018-03-06 13:44 | Pulmonology Progress Note ---
Assessment/Plan Problems: (1) Rapid atrial fibrillation (2) Fever (3) Asthma (4) Thrombocytopenia (5) Hypokalemia (6) Alcohol abuse Assessment/Plan heart rate controlled on digoxin .125 and amiodarone 200 continue current cardiac medication afebrile now dc planning Subjective ROS Limited/Unobtainable: No Constitutional: Reports: no symptoms HEENT: Repors: no symptoms Respiratory: Reports: no symptoms Allergies: Coded Allergies: CIPROFLOXACIN (Unverified Allergy, Unknown, 04/28/14) NITROFURANTOIN (Verified Allergy, Unknown, 02/11/16) PENICILLINS (Verified Allergy, Unknown, 02/11/16) Objective Last 24 Hour Vital Signs Date Time Temp Pulse Resp B/P (MAP) Pulse Ox O2 Delivery O2 Flow Rate FiO2 03/06/18 12:00 98.0 64 18 119/79 (92) 99 98.0 03/06/18 09:00 55 03/06/18 09:00 Room Air 03/06/18 08:00 97.9 62 18 126/77 (93) 100 97.9 03/06/18 04:00 97.9 58 18 130/78 (95) 100 97.9 03/06/18 00:27 97.8 60 18 117/76 (90) 99 97.8 03/05/18 21:57 99.1 03/05/18 21:48 Room Air 03/05/18 21:27 100.1 03/05/18 20:59 100.1 65 18 123/70 (87) 99 100.1 03/05/18 19:30 70 20 Room Air 21 03/05/18 16:00 73 03/05/18 16:00 97.9 73 18 117/80 (92) 98 97.9 Intake and Output 03/05/18 03/06/18 19:00 07:00 Intake Total 597.5 ml 240 ml Balance 597.5 ml 240 ml Intake Oral 360 ml 240 ml IV Total 237.5 ml # Voids 6 2 # Bowel Movements 2 General Appearance: WD/WN HEENT: normocephalic, atraumatic Respiratory/Chest: chest wall non-tender, lungs clear Breasts: no masses Cardiovascular: normal peripheral pulses Abdomen: normal bowel sounds, soft, non tender Extremities: no cyanosis Neurologic/Psychiatric: thermodynamics engineer II-XII grossly normal Current Medications Medications (Trade) Dose Ordered Sig/Homero Route PRN Reason Start Time Stop Time Status Last Admin Dose Admin Acetaminophen (Tylenol) 650 mg Q4H PRN ORAL FEVER (temp>100.5F) 03/05/18 20:50 04/01/18 20:49 03/05/18 21:27 Acetaminophen/ Hydrocodone Bitart ([place] 5/325) 1 tab Q6H PRN ORAL For Pain 03/05/18 20:53 03/12/18 20:52 Albuterol/ Ipratropium (Albuterol/ Ipratropium) 3 ml Q4H PRN HHN Shortness of Breath 03/05/18 22:30 03/07/18 18:29 Amiodarone HCl (Cordarone) 200 mg DAILY ORAL 03/06/18 09:00 04/01/18 20:59 03/06/18 09:03 Apixaban (Eliquis) 5 mg Q12HR ORAL 03/05/18 21:00 04/02/18 20:59 03/06/18 09:02 Digoxin (Lanoxin) 0.125 mg DAILY ORAL 03/06/18 09:00 04/02/18 08:59 Docusate Sodium (Colace) 100 mg THREE TIMES A DAY ORAL 03/06/18 09:00 04/01/18 12:59 03/06/18 09:03 Folic Acid (Folate) 2 mg DAILY ORAL 03/06/18 09:00 04/01/18 11:12 03/06/18 09:03 Furosemide (Lasix) 40 mg DAILY ORAL 03/06/18 09:00 04/05/18 08:59 03/06/18 09:03 Nitroglycerin (Ntg) 0.4 mg Q5M PRN SL Prn Chest Pain 03/05/18 21:00 04/01/18 07:59 Nystatin (Nystop Powder) 1 applic BID TOPIC 03/06/18 09:00 04/04/18 17:59 03/06/18 09:07 Ondansetron HCl (Zofran) 4 mg Q6H PRN IVP Nausea & Vomiting 03/05/18 20:53 04/04/18 20:52 Pantoprazole (Protonix) 40 mg BID ORAL 03/06/18 09:00 04/01/18 08:59 03/06/18 09:03 Polyethylene Glycol (Miralax) 17 gm DAILYPRN PRN ORAL Constipation 03/05/18 20:53 04/04/18 20:52 Potassium Chloride (K-Dur) 40 meq DAILY ORAL 03/06/18 09:00 04/03/18 09:29 03/06/18 09:03 Temazepam (Restoril) 15 mg HSPRN PRN ORAL Insomnia 03/05/18 20:53 03/12/18 20:52 Thiamine HCl (Vitamin B1) 100 mg DAILY ORAL 03/06/18 09:00 04/02/18 08:59 03/06/18 09:02 Daylin Cooper MD Mar 06, 2018 13:44
--- NOTE | 2018-03-07 12:50 | Discharge Summary ---
Discharge Summary Discharge Summary _ DATE OF ADMISSION: 03/02/2018 DATE OF DISCHARGE: 03/06/2018 CONSULTANTS: Dr. Daylin Linares BRIEF HOSPITAL COURSE: And is a 72-year-old female, homeless, presented to ER with her friend, brought in for increased lethargy, weakness. On evaluation at ED she was found to be in rapid A. fib. IV Cardizem bolus was given and was initiated. Blood work showed hypokalemia and hyponatremia with sodium level of 128. She was then admitted to ICU. She was placed on amiodarone drip. Patient had low platelets likely secondary to EtOH. She eventually converted to sinus rhythm. Amiodarone drip was discontinued and was switched to oral amiodarone. She was continued on digoxin. She was started on anticoagulation with Eliquis. Echocardiogram done showed ejection fraction 6065% with RVSP of 42 consistent with moderate pulmonary hypertension. Venous duplex without evidence of acute DVT. She came in with hyponatremia. Hyponatremia natremia workup done. Urine osmolality was 323, random urine sodium was less than 20. She was seen by infectious disease specialist. Fever and unclear etiology. Suspect secondary to medication. There was no active sign of infection. She was monitored off of antibiotic treatment. Heart rate controlled. Fever resolved. There was no leukocytosis. Electrolytes stable. [facility] FINAL DIAGNOSES: Atrial fibrillation with RVR, converted to sinus rhythm Acute on chronic congestive heart failure due to diastolic dysfunction Hypertension Fever, with unclear etiology Hypokalemia Hyponatremia Thrombocytopenia Asthma Alcohol abuse Dehydration Renal insufficiency/acute kidney injury Malnutrition Moderate pulmonary hypertension DISPOSITION: Patient was discharged to SNF. DISCHARGE MEDICATIONS: Refer to Discharge Medication List. I have been assigned to dictate discharge summary on this account, and I was not involved in the patient's management. Britta Sousa NP Mar 07, 2018 12:50
== END 2018-03-06 15:30 | DRG 308 ==
LOC: EMR 23:58 → EDBEDREQ 03-02 00:53 → ICU 03-02 01:15 → EDBEDREQ 03-02 05:22 → 2E 03-03 19:02 → 4E 03-05 20:43
DX: I48.91 Unspecified atrial fibrillation (principal); I50.33 Acute on chronic diastolic (congestive) heart failure; E87.1 Hypo-osmolality and hyponatremia; N17.9 Acute kidney failure, unspecified; L03.119 Cellulitis of unspecified part of limb; E46 Unspecified protein-calorie malnutrition; E86.0 Dehydration; E87.6 Hypokalemia; Z59.0 Homelessness; I11.0 Hypertensive heart disease with heart failure; F10.10 Alcohol abuse, uncomplicated; R50.9 Fever, unspecified; D69.6 Thrombocytopenia, unspecified; J45.909 Unspecified asthma, uncomplicated; I27.20 Pulmonary hypertension, unspecified; Z88.1 Allergy status to other antibiotic agents; Z88.0 Allergy status to penicillin; Z88.8 Allergy status to other drugs, medicaments and biological substances
CPT/HCPCS: 36415; 71045; 80053; 80061; 80162; 80307; 81001; 82550; 82607; 82746; 82977; 83036; 83735; 83880; 83930; 83935; 84100; 84300; 84439; 84443; 84484; 84550; 85007; 85025; 85610; 85730; 86140; 87081; 93005; 93306; 93970; 94664; 96361; 96374; 96375; 97803; 99291; J0282; J8499

== ENCOUNTER 2019-08-18 09:29 | Inpatient (IN) | payer MEDICARE, MEDICAID ==
[~2019-08-18] VITALS: Ht 157.5 cm; Wt 54.0 kg
[~2019-08-18 09:29] MED LIST changes: +BABY POWDER1 APPLIC TOPIC; +DIGOXIN125 MCG ORAL; +ELIQUIS5 MG PO; +FUROSEMIDE40 MG ORAL; +IPRATROPIU0.2 MG/1 M HHN; +NITROSTAT0.4 M1 SL; +PACERONE200 MG ORAL; +PANTOPRAZOLE SO40 MG ORAL; +POTASSIUM CHLO20 ME1 ORAL; +RESTORIL15 MG ORAL; +VITAMIN B-1100 M2 PO
--- NOTE | 2019-08-18 09:50 | NUR ---
came to er from the street states she has cough and chest pain x 3 days denies any nausea or vomiting. iv started venous blood send to lab
--- NOTE | 2019-08-18 10:00 | Emergency Room Report ---
History of Present Illness General Chief Complaint: Dyspnea/Respdistress Source: [facility] Disclaimer: Please note that this report is being documented using DRAGON technology. This can lead to erroneous entry secondary to incorrect interpretation by the dictating instrument. HPI: 74-year-old female with a history of atrial fibrillation not anticoagulated presents for evaluation of chest pain and vomiting. She is been admitted for atrial fibrillation in the past however the patient is currently homeless and takes no medications. States she has been experiencing midsternal chest pain and lightheadedness for the past 3 days. This morning she began vomiting which brought her in for evaluation. She denies cough or shortness of breath. She feels weak and fatigued. Denies diarrhea, fever or chills. She has a history of alcohol abuse but denies drug or alcohol abuse at this time. PMH: Atrial fibrillation, CAD, CHF, asthma, alcohol abuse PSH: Reviewed Allergies: Ciprofloxacin, Macrobid, penicillin Social Hx: Alcohol abuse, tobacco use Allergies: Coded Allergies: CIPROFLOXACIN (Unverified Allergy, Unknown, 04/28/14) NITROFURANTOIN (Verified Allergy, Unknown, 02/11/16) PENICILLINS (Verified Allergy, Unknown, 02/11/16) Patient History Now: No Nursing Documentation-PMH Hx Cardiac Problems: Yes - AFIB Hx Hypertension: Yes Hx Pacemaker: No Hx Asthma: Yes Hx Diabetes: No Hx Cancer: No Hx Gastrointestinal Problems: No Hx Neurological Problems: Yes Hx Dizziness: Yes Hx Weakness: Yes Review of Systems All Other Systems: negative except mentioned in HPI Physical Exam Vital Signs Date Time Temp Pulse Resp B/P (MAP) Pulse Ox O2 Delivery O2 Flow Rate FiO2 08/18/19 09:48 98.4 150 22 130/80 (97) 98 General: Awake and alert, unkempt, no acute distress HEENT: NC/AT. EOMI. Cardiovascular: Tachycardic between 150 and 200 bpm. Resp: Normal work of breathing. No cough, wheezing or crackles appreciated Abdomen: Abdomen is soft, nondistended. Nontender Skin: Intact. No abrasions, laceration or rash over the exposed skin MSK: Normal tone and bulk. Moving all extremities. No obvious deformity. Neuro: Awake and alert. Mentating appropriately. Procedures Critical Care Time Critical Care Time Total critical care time: Approximately 45 minutes Due to a high probability of clinically significant, life threatening deterioration, the patient required the highest level of preparedness to intervene emergently and I personally spent this critical care time directly and personally managing the patient. This critical care time included obtaining a history, examining the patient, pulse oximetry, ordering and reviewing studies , ordering treatments, evaluating response to treatment and updating management plan as needed, frequent reassessment and discussion with other providers as well as arranging for ultimate disposition. This critical to care time was performed to assess and manage the high probability of life-threatening deterioration that could result in multiorgan failure. This critical care time is separate from the separately billable procedures and treating other patients. Medical Decision Making Diagnostic Impression: Primary Impression: Rapid atrial fibrillation Additional Impressions: Vomiting CHF (congestive heart failure) ER Course 74-year-old homeless female presents for evaluation of vomiting and chest pain. Chest pain been present for 3 days. She arrives in rapid atrial fibrillation. Will treat with Cardizem, draw broad labs and perform x-ray. Patient require admission. Laboratory Tests Test 08/18/19 09:50 White Blood Count 8.3 K/UL (4.8-10.8) Red Blood Count 3.59 M/UL (4.20-5.40) L Hemoglobin 10.8 G/DL (12.0-16.0) L Hematocrit 32.1 % (37.0-47.0) L Mean Corpuscular Volume 89 FL (80-99) Mean Corpuscular Hemoglobin 30.0 PG (27.0-31.0) Mean Corpuscular Hemoglobin Concent 33.6 G/DL (32.0-36.0) Red Cell Distribution Width 15.5 % (11.6-14.8) H Platelet Count 184 K/UL (150-450) Mean Platelet Volume 5.3 FL (6.5-10.1) L Neutrophils (%) (Auto) % (45.0-75.0) Lymphocytes (%) (Auto) % (20.0-45.0) Monocytes (%) (Auto) % (1.0-10.0) Eosinophils (%) (Auto) % (0.0-3.0) Basophils (%) (Auto) % (0.0-2.0) Neutrophils % (Manual) Pending Lymphocytes % (Manual) Pending Platelet Estimate Pending Platelet Morphology Pending Prothrombin Time 11.7 SEC (9.30-11.50) H Prothrombin Time INR 1.1 (0.9-1.1) Activated Partial Thromboplast Time 26 SEC (23-33) Sodium Level 140 MMOL/L (136-145) Potassium Level 3.7 MMOL/L (3.5-5.1) Chloride Level 100 MMOL/L (98-107) Carbon Dioxide Level 25 MMOL/L (21-32) Anion Gap 15 mmol/L (5-15) Blood Urea Nitrogen 13 mg/dL (7-18) Creatinine 0.8 MG/DL (0.55-1.30) Estimate Glomerular Filtration Rate > 60 mL/min (>60) Glucose Level 191 MG/DL (74-106) H Calcium Level 9.2 MG/DL (8.5-10.1) Total Bilirubin 1.3 MG/DL (0.2-1.0) H Direct Bilirubin 0.5 MG/DL (0.0-0.3) H Aspartate Amino Transferase (AST) 86 U/L (15-37) H Alanine Aminotransferase (ALT) 34 U/L (12-78) Alkaline Phosphatase 81 U/L (46-116) Troponin I 0.028 ng/mL (0.000-0.056) Pro-B-Type Natriuretic Peptide 2195 pg/mL (0-125) H Total Protein 8.6 G/DL (6.4-8.2) H Albumin 3.7 G/DL (3.4-5.0) Globulin 4.9 g/dL Albumin/Globulin Ratio 0.8 (1.0-2.7) L Lipase 149 U/L (73-393) EKG Diagnostic Results EKG Time: 09:57 Rate: tachycardiac Other Impression Rapid atrial fibrillation Rhythm Strip Diag. Results Rhythm Strip Time: 09:57 EP Interpretation: yes Rate: 193 Chest X-Ray Diagnostic Results Chest X-Ray Diagnostic Results : Chest X-Ray Ordered: Yes # of Views/Limited/Complete: 1 View Indication: Chest Pain EP Interpretation: Yes Interpretation: no consolidation, no effusion, no pneumothorax, no acute cardiopulmonary disease Impression: No acute disease Electronically Signed by: Electronically signed by Dr. Maikel Chairez Reevaluation Time: 10:59 Last Vital Signs Date Time Temp Pulse Resp B/P (MAP) Pulse Ox O2 Delivery O2 Flow Rate FiO2 2/25/20 09:48 98.4 150 22 130/80 (97) 98 Reevaluation Impression Patient converted to sinus rhythm with a normal rate after one IV dose of Cardizem. She was loaded with 60 mg oral Cardizem as well. Troponin returned within normal limits. BN peptide is elevated. Chest x-ray shows mild vascular congestion but no effusions. Labs otherwise within normal limits. Patient be admitted to the hospital for further monitoring and treatment of rapid atrial fibrillation. Will admit to panel physician. Disposition: ADMITTED INPATIENT Condition: Serious Maikel Chairez MD Aug 18, 2019 10:00
[2019-08-18 10:28] LABS: ANION GAP 15 mmol/L (5-15); BLOOD UREA NITROGEN 13 mg/dL (7-18); CALCIUM 9.2 MG/DL (8.5-10.1); CARBON DIOXIDE 25 MMOL/L (21-32); CHLORIDE 100 MMOL/L (98-107); CREATININE 0.8 MG/DL (0.55-1.30); INR 1.1 (0.9-1.1); POTASSIUM 3.7 MMOL/L (3.5-5.1); SODIUM 140 MMOL/L (136-145)
[2019-08-18] MEDS ORDERED: dilTIAZem HCl 25mg/5ml Inj IVP ONE (10:30)
[2019-08-18 10:32] VITALS: BP 130/80
[2019-08-18 10:39] LABS: ALANINE AMINOTRANSFERASE 34 U/L (12-78); ALBUMIN 3.7 G/DL (3.4-5.0); ALBUMIN/GLOBULIN RATIO 0.8 (1.0-2.7); ALKALINE PHOSPHATASE 81 U/L (46-116); ASPARTATE AMINO TRANSFERASE 86 U/L (15-37); BILIRUBIN,TOTAL 1.3 MG/DL (0.2-1.0)
[2019-08-18 10:41] LABS: BILIRUBIN,DIRECT 0.5 MG/DL (0.0-0.3)
[2019-08-18 10:45] LABS: HEMATOCRIT 32.1 % (37.0-47.0); HEMOGLOBIN 10.8 G/DL (12.0-16.0); MEAN CORPUSCULAR VOLUME 89 FL (80-99); PLATELET COUNT 184 K/UL (150-450); RED BLOOD COUNT 3.59 M/UL (4.20-5.40); RED CELL DISTRIBUTION WIDTH 15.5 % (11.6-14.8); WHITE BLOOD COUNT 8.3 K/UL (4.8-10.8)
[2019-08-18] MEDS ORDERED: dilTIAZem HCl 60mg tab ORAL ONE (10:45)
--- NOTE | 2019-08-18 11:00 | NUR ---
denies any chest pain or shortness of breath waiting for call back from dr schwartz
--- NOTE | 2019-08-18 11:09 | Diagnostic Imaging Report ---
Indication: Dyspnea Comparison: 03/01/2018 A single view chest radiograph was obtained. Findings: Cardiomegaly is present. Aorta ectatic. Bones are osteopenic. There is an old fracture of the right humeral neck. IMPRESSION: No acute cardiopulmonary abnormalities
--- NOTE | 2019-08-18 11:55 | NUR ---
report given to gagan patient is to be transferd to room 219-2 via acls protocol
[2019-08-18 11:56] VITALS: BP 176/115
[2019-08-18 11:56] LABS: PHOSPHORUS 3.2 MG/DL (2.5-4.9)
[2019-08-18] MEDS ORDERED: Labetalol 5mg/ml 20ml vial IV ONE (12:00)
--- NOTE | 2019-08-18 12:14 | NUR ---
ED Nurse Note: Noted latest BP: 166/95 from 176/77; and after giving labetalol 2ml slow IVP. Pt denies pain/discomfort; informed charge nurse.
--- NOTE | 2019-08-18 12:40 | NUR ---
Admitted patient from ER via gurney. Admission report received from VIKASH Nichols. Pt is AAO X4, non-ambulatory, denies any pain at this time. No s/s of SOB. narrative writer on. Patient's belonging acknowledged, signed by patient and both nurses. Admission orders received, acknowledged and carried out. Dr. Moreno saw the patient. All admission protocols followed and carried out. Will continue to monitor patient.
--- NOTE | 2019-08-18 12:44 | Cardiac Electrophysiology PN ---
Subjective Subjective [id number] Objective Last 24 Hour Vital Signs Date Time Temp Pulse Resp B/P (MAP) Pulse Ox O2 Delivery O2 Flow Rate FiO2 08/18/19 12:09 Room Air 08/18/19 12:05 83 176/115 08/18/19 11:59 99.0 140 18 170/143 98 Room Air 08/18/19 11:56 18 176/115 97 08/18/19 10:58 140 170/143 08/18/19 10:32 99.0 140 18 130/80 98 Room Air 08/18/19 10:28 160 130/80 08/18/19 10:13 160 20 08/18/19 09:48 98.4 150 22 130/80 (97) 98 Laboratory Tests Test 08/18/19 09:50 White Blood Count 8.3 K/UL (4.8-10.8) Red Blood Count 3.59 M/UL (4.20-5.40) L Hemoglobin 10.8 G/DL (12.0-16.0) L Hematocrit 32.1 % (37.0-47.0) L Mean Corpuscular Volume 89 FL (80-99) Mean Corpuscular Hemoglobin 30.0 PG (27.0-31.0) Mean Corpuscular Hemoglobin Concent 33.6 G/DL (32.0-36.0) Red Cell Distribution Width 15.5 % (11.6-14.8) H Platelet Count 184 K/UL (150-450) Mean Platelet Volume 5.3 FL (6.5-10.1) L Neutrophils (%) (Auto) % (45.0-75.0) Lymphocytes (%) (Auto) % (20.0-45.0) Monocytes (%) (Auto) % (1.0-10.0) Eosinophils (%) (Auto) % (0.0-3.0) Basophils (%) (Auto) % (0.0-2.0) Differential Total Cells Counted 100 Neutrophils % (Manual) 86 % (45-75) H Lymphocytes % (Manual) 7 % (20-45) L Monocytes % (Manual) 6 % (1-10) Eosinophils % (Manual) 0 % (0-3) Basophils % (Manual) 1 % (0-2) Band Neutrophils 0 % (0-8) Platelet Estimate Adequate Platelet Morphology Normal Hypochromasia 1+ Anisocytosis 1+ Prothrombin Time 11.7 SEC (9.30-11.50) H Prothromb Time International Ratio 1.1 (0.9-1.1) Activated Partial Thromboplast Time 26 SEC (23-33) Sodium Level 140 MMOL/L (136-145) Potassium Level 3.7 MMOL/L (3.5-5.1) Chloride Level 100 MMOL/L (98-107) Carbon Dioxide Level 25 MMOL/L (21-32) Anion Gap 15 mmol/L (5-15) Blood Urea Nitrogen 13 mg/dL (7-18) Creatinine 0.8 MG/DL (0.55-1.30) Estimat Glomerular Filtration Rate > 60 mL/min (>60) Glucose Level 191 MG/DL (74-106) H Calcium Level 9.2 MG/DL (8.5-10.1) Phosphorus Level 3.2 MG/DL (2.5-4.9) Magnesium Level 1.2 MG/DL (1.8-2.4) L Total Bilirubin 1.3 MG/DL (0.2-1.0) H Direct Bilirubin 0.5 MG/DL (0.0-0.3) H Aspartate Amino Transf (AST/SGOT) 86 U/L (15-37) H Alanine Aminotransferase (ALT/SGPT) 34 U/L (12-78) Alkaline Phosphatase 81 U/L (46-116) Troponin I 0.028 ng/mL (0.000-0.056) Pro-B-Type Natriuretic Peptide 2195 pg/mL (0-125) H Total Protein 8.6 G/DL (6.4-8.2) H Albumin 3.7 G/DL (3.4-5.0) Globulin 4.9 g/dL Albumin/Globulin Ratio 0.8 (1.0-2.7) L Lipase 149 U/L (73-393) Adrien Moreno MD Aug 18, 2019 12:44
--- NOTE | 2019-08-18 14:02 | Consultation ---
Consult Note Consult Note I am consulted for fluid and electrolyte management- Patient been followed in my office in the past- non compliant- Homeless- ETOH abuser ER: HPI: 74-year-old female with a history of atrial fibrillation not anticoagulated presents for evaluation of chest pain and vomiting. She is been admitted for atrial fibrillation in the past however the patient is currently homeless and takes no medications. States she has been experiencing midsternal chest pain and lightheadedness for the past 3 days. This morning she began vomiting which brought her in for evaluation. She denies cough or shortness of breath. She feels weak and fatigued. Denies diarrhea, fever or chills. She has a history of alcohol abuse but denies drug or alcohol abuse at this time. PMH: Atrial fibrillation, CAD, CHF, asthma, alcohol abuse Allergies: Ciprofloxacin, Macrobid, penicillin Social Hx: Alcohol abuse, tobacco use Allergies: CIPROFLOXACIN (Unverified Allergy, Unknown, 04/28/14) NITROFURANTOIN (Verified Allergy, Unknown, 02/11/16) PENICILLINS (Verified Allergy, Unknown, 02/11/16) Hx Cardiac Problems: Yes - AFIB Hx Hypertension: Yes Hx Asthma: Yes Hx Neurological Problems: Yes Hx Dizziness: Yes Hx Weakness: Yes examined data reviewed Assessment/Plan Low Mag Atfib with FVR CHF ALD Asthma DJD Anemia Mag IV 2D Echo Anemia jc protonix IV NPO Slow hydrate Zacarias Scott MD Aug 18, 2019 14:02
--- NOTE | 2019-08-18 15:15 | Consultation ---
DATE OF CONSULTATION: 08/18/2019 CARDIOLOGY CONSULTATION CONSULTING PHYSICIAN: Adrien Moreno M.D. REFERRING PHYSICIAN: Arturo Sullivan M.D. REASON FOR CONSULTATION: Atrial fibrillation with rapid ventricular response and shortness of breath. HISTORY OF PRESENT ILLNESS: The patient is a 74-year-old lady with history of hypertension, coronary artery disease, congestive heart failure as well as history of atrial fibrillation who was not anticoagulated presented to emergency room for shortness of breath, chest pain, and vomiting. The patient has been admitted for atrial fibrillation in the past; however, currently is homeless, does not take any medication. Her EKG shows sinus rhythm, normal electrocardiogram. The patient is complaining of chest pain and lightheadedness for the last 3 days and also severe vomiting, brought into the emergency room. REVIEW OF SYSTEMS: Negative other than what was mentioned in the history of present illness. PAST MEDICAL HISTORY: As mentioned above. FAMILY HISTORY: Noncontributory. SOCIAL HISTORY: She is currently homeless. She drinks alcohol and smokes tobacco. ALLERGIES: She is allergic to Macrobid, penicillin, and Cipro. PHYSICAL EXAMINATION: VITAL SIGNS: Show blood pressure of 173/115, pulse was 140, currently 82, respirations 18, and she is afebrile. HEAD AND NECK: Shows no JVD. LUNGS: Coarse rhonchi. CARDIOVASCULAR: Shows regular S1 and S2 with no gallop or murmur. ABDOMEN: Soft. EXTREMITIES: No pitting edema. LABORATORY AND DIAGNOSTIC DATA: Her labs show white count of 8.3, hematocrit 10.8, hematocrit 32, and platelet count of 184. Sodium 140, potassium 3.7, BUN of 13 , and glucose of 191. Troponin negative. Digoxin is less than 2. ASSESSMENT AND PLAN: 1. History of paroxysmal atrial fibrillation with rapid ventricular response. Heart rate was in the 140s in the emergency room. The patient is to be on amiodarone and metoprolol on the previous admission when I saw her in February of 2018. Resume digoxin 0.125 mg daily and amiodarone 200 mg twice a day as well as Eliquis 5 mg b.i.d. 2. Hypertension. Start metoprolol 25 mg b.i.d. 3. History of congestive heart failure, diastolic dysfunction. Repeat echocardiogram. Her EF in the past was 65%. Continue Lasix 40 mg daily. Thank you very much, Dr. Sullivan, for allowing me to participate in the care of this patient. Please do not hesitate to contact me for any questions regarding my evaluation. Adrien Moreno M.D. DR: TRE JOB#: [id number] CC:
[2019-08-18] MEDS: D5 1/2NS w/KCl 20mEq 1,000 ML IV SCH (17:21)
[2019-08-18] MEDS: Eliquis 5mg tablet ORAL SCH (18:16)
[2019-08-18] MEDS: Acetaminophen 500mg (ES) tab ORAL PRN ×2 (18:17→23:37)
--- NOTE | 2019-08-18 19:32 | NUR ---
HAND-OFF: Report given to Lucina SUH. Patient is in stable condition.
--- NOTE | 2019-08-18 19:48 | NUR ---
NURSE NOTES: RECEIVED PATIENT RESTING IN BED, NO COMPLAINTS OF PAIN AT THIS TIME. FALL PRECAUTIONS IN PLACE: CALL LIGHT, BEDSIDE TABLE AND BEDPAN WITHIN REACH, BED IN LOW POSITION AND BED ALARM ON. PLAN OF CARE REVIEWED.
[2019-08-18 20:00] VITALS: BP 180/108
[2019-08-18] MEDS: Pantoprazole Inj IVP SCH (21:17)
[2019-08-18 21:32] LABS: APPEARANCE,URINE CLEAR; BILIRUBIN, URINE NEGATIVE (NEGATIVE); COLOR,URINE PALE YELLOW; GLUCOSE, URINE (UA) NEGATIVE (NEGATIVE); KETONES,URINE NEGATIVE (NEGATIVE); LEUKOCYTE ESTERASE ,URINE NEGATIVE (NEGATIVE); NITRITE,URINE NEGATIVE (NEGATIVE); PH,URINE 8 (4.5-8.0); PROTEIN,URINE 1+ (NEGATIVE); UROBILINOGEN,URINE NORMAL MG/DL (0.0-1.0)
[2019-08-18] MEDS: Metoclopramide 10mg/2ml Inj IVP PRN (23:36)
[2019-08-19] VITALS: BP 178/108
[2019-08-19 03:34] LABS: BASOPHILS % (AUTO) 0.5 % (0.0-2.0); EOSINOPHILS % (AUTO) 0.1 % (0.0-3.0); HEMATOCRIT 35.4 % (37.0-47.0); HEMOGLOBIN 11.8 G/DL (12.0-16.0); LYMPHOCYTES % (AUTO) 11.4 % (20.0-45.0); MEAN CORPUSCULAR VOLUME 91 FL (80-99); MONOCYTES % (AUTO) 10.2 % (1.0-10.0); NEUTROPHILS % (AUTO) 77.8 % (45.0-75.0); PLATELET COUNT 193 K/UL (150-450); RED BLOOD COUNT 3.91 M/UL (4.20-5.40); RED CELL DISTRIBUTION WIDTH 13.1 % (11.6-14.8); WHITE BLOOD COUNT 8.1 K/UL (4.8-10.8)
[2019-08-19 03:44] LABS: PHOSPHORUS 2.7 MG/DL (2.5-4.9)
[2019-08-19 04:00] VITALS: BP 139/88
[2019-08-19 04:06] LABS: ALANINE AMINOTRANSFERASE 45 U/L (12-78); ALBUMIN 3.7 G/DL (3.4-5.0); ALBUMIN/GLOBULIN RATIO 0.7 (1.0-2.7); ALKALINE PHOSPHATASE 81 U/L (46-116); ANION GAP 13 mmol/L (5-15); ASPARTATE AMINO TRANSFERASE 81 U/L (15-37); BILIRUBIN,TOTAL 1.4 MG/DL (0.2-1.0); BLOOD UREA NITROGEN 7 mg/dL (7-18); CALCIUM 9.3 MG/DL (8.5-10.1); CARBON DIOXIDE 29 MMOL/L (21-32); CHLORIDE 95 MMOL/L (98-107); CHOLESTEROL 190 MG/DL (< 200); CREATININE 1.1 MG/DL (0.55-1.30); FERRITIN 169 NG/ML (8-388); HDL CHOLESTEROL 140 MG/DL (40-60); POTASSIUM 3.1 MMOL/L (3.5-5.1); SODIUM 137 MMOL/L (136-145); TRIGLYCERIDES 42 MG/DL (30-150)
[2019-08-19 04:27] LABS: BILIRUBIN,DIRECT 0.4 MG/DL (0.0-0.3)
--- NOTE | 2019-08-19 06:35 | NUR ---
NURSE NOTE: K-3.1 CALLED AND LEFT MESSAGE FOR DR. LAZCANO. AWAITING MD RESPONSE.
--- NOTE | 2019-08-19 07:21 | NUR ---
NURSE NOTES: Received patient from Lucina RN in bed resting. Patient denies any pain at this time, no s/s of respiratory distress noted. Endorsed by Lucina that K-3.1 and was reported to Dr. Scott, awaiting response. IV is intact and patent with fluids running at 50cc per hour and patient tolerating well. Bed is in lowest position, locked, and bedside rails up x3. Patient is still vomiting, will notify MD. Will continue with the plan of care.
--- NOTE | 2019-08-19 07:27 | NUR ---
HAND-OFF: Report given to VIKASH ACEVES. PATIENT RESTING IN BED, NO SIGNS OF DISTRESS NOTED. ENDORSED TO FOLLOW UP WITH MD ON K RESULT.
[2019-08-19 08:00] VITALS: BP 155/94
[2019-08-19] MEDS: Metoclopramide 10mg/2ml Inj IVP PRN (08:07)
[2019-08-19] MEDS: Eliquis 5mg tablet ORAL SCH (08:07)
[2019-08-19] MEDS: Pantoprazole Inj IVP SCH (08:08)
--- NOTE | 2019-08-19 08:15 | Cardiac Electrophysiology PN ---
Assessment/Plan Assessment/Plan 1. Paroxysmal atrial fibrillation with rapid ventricular response in the 140s. On amiodarone 200, metoprolol and add digoxin 0.125 mg daily. Also on Eliquis 5 mg b.i.d. 2. Hypertension. On metoprolol 25 mg b.i.d. 3. History of congestive heart failure, diastolic dysfunction. Repeat echocardiogram. Her EF in the past was 65%. Continue Lasix 40 mg daily. SABI RN Subjective Subjective Comfortable in NAD. No CP or SOB. Has abdominal pain. Objective Last 24 Hour Vital Signs Date Time Temp Pulse Resp B/P (MAP) Pulse Ox O2 Delivery O2 Flow Rate FiO2 08/19/19 08:07 70 155/94 08/19/19 04:00 73 08/19/19 04:00 97.7 70 16 139/88 (105) 97 08/19/19 00:39 178/108 08/19/19 00:00 97.5 76 16 178/108 (131) 97 08/19/19 00:00 73 08/18/19 21:17 79 180/108 08/18/19 20:10 Room Air 08/18/19 20:00 76 08/18/19 20:00 97.5 79 16 180/108 (132) 08/18/19 12:09 Room Air 08/18/19 12:05 83 176/115 08/18/19 12:00 71 08/18/19 11:59 99.0 140 18 170/143 98 Room Air 08/18/19 11:56 18 176/115 97 08/18/19 10:58 140 170/143 08/18/19 10:32 99.0 140 18 130/80 98 Room Air 08/18/19 10:28 160 130/80 08/18/19 10:13 160 20 08/18/19 09:48 98.4 150 22 130/80 (97) 98 Intake and Output 08/18/19 08/19/19 19:00 07:00 Intake Total 350 ml 600 ml Output Total 500 ml Balance -150 ml 600 ml Intake Oral 300 ml IV Total 50 ml 600 ml Output Urine Total 500 ml # Voids 2 3 Laboratory Tests Test 08/18/19 09:50 08/18/19 16:20 08/18/19 21:00 08/18/19 21:40 White Blood Count 8.3 K/UL (4.8-10.8) Red Blood Count 3.59 M/UL (4.20-5.40) L Hemoglobin 10.8 G/DL (12.0-16.0) L Hematocrit 32.1 % (37.0-47.0) L Mean Corpuscular Volume 89 FL (80-99) Mean Corpuscular Hemoglobin 30.0 PG (27.0-31.0) Mean Corpuscular Hemoglobin Concent 33.6 G/DL (32.0-36.0) Red Cell Distribution Width 15.5 % (11.6-14.8) H Platelet Count 184 K/UL (150-450) Mean Platelet Volume 5.3 FL (6.5-10.1) L Neutrophils (%) (Auto) % (45.0-75.0) Lymphocytes (%) (Auto) % (20.0-45.0) Monocytes (%) (Auto) % (1.0-10.0) Eosinophils (%) (Auto) % (0.0-3.0) Basophils (%) (Auto) % (0.0-2.0) Differential Total Cells Counted 100 Neutrophils % (Manual) 86 % (45-75) H Lymphocytes % (Manual) 7 % (20-45) L Monocytes % (Manual) 6 % (1-10) Eosinophils % (Manual) 0 % (0-3) Basophils % (Manual) 1 % (0-2) Band Neutrophils 0 % (0-8) Platelet Estimate Adequate Platelet Morphology Normal Hypochromasia 1+ Anisocytosis 1+ Prothrombin Time 11.7 SEC (9.30-11.50) H Prothromb Time International Ratio 1.1 (0.9-1.1) Activated Partial Thromboplast Time 26 SEC (23-33) Sodium Level 140 MMOL/L (136-145) Potassium Level 3.7 MMOL/L (3.5-5.1) Chloride Level 100 MMOL/L (98-107) Carbon Dioxide Level 25 MMOL/L (21-32) Anion Gap 15 mmol/L (5-15) Blood Urea Nitrogen 13 mg/dL (7-18) Creatinine 0.8 MG/DL (0.55-1.30) Estimat Glomerular Filtration Rate > 60 mL/min (>60) Glucose Level 191 MG/DL (74-106) H Calcium Level 9.2 MG/DL (8.5-10.1) Phosphorus Level 3.2 MG/DL (2.5-4.9) Magnesium Level 1.2 MG/DL (1.8-2.4) L Total Bilirubin 1.3 MG/DL (0.2-1.0) H Direct Bilirubin 0.5 MG/DL (0.0-0.3) H Aspartate Amino Transf (AST/SGOT) 86 U/L (15-37) H Alanine Aminotransferase (ALT/SGPT) 34 U/L (12-78) Alkaline Phosphatase 81 U/L (46-116) Troponin I 0.028 ng/mL (0.000-0.056) 0.036 ng/mL (0.000-0.056) 0.039 ng/mL (0.000-0.056) Pro-B-Type Natriuretic Peptide 2195 pg/mL (0-125) H Total Protein 8.6 G/DL (6.4-8.2) H Albumin 3.7 G/DL (3.4-5.0) Globulin 4.9 g/dL Albumin/Globulin Ratio 0.8 (1.0-2.7) L Lipase 149 U/L (73-393) Urine Color Pale yellow Urine Appearance Clear Urine pH 8 (4.5-8.0) Urine Specific [place] 1.010 (1.005-1.035) Urine Protein 1+ (NEGATIVE) H Urine Glucose (UA) Negative (NEGATIVE) Urine Ketones Negative (NEGATIVE) Urine Blood 2+ (NEGATIVE) H Urine Nitrite Negative (NEGATIVE) Urine Bilirubin Negative (NEGATIVE) Urine Urobilinogen Normal MG/DL (0.0-1.0) Urine Leukocyte Esterase Negative (NEGATIVE) Urine RBC 0-2 /HPF (0 - 2) Urine WBC 0-2 /HPF (0 - 2) Urine Squamous Epithelial Cells Occasional /LPF Urine Bacteria Occasional /HPF (NONE) Urine Opiates Screen Negative (NEGATIVE) Urine Barbiturates Screen Negative (NEGATIVE) Phencyclidine (PCP) Screen Negative (NEGATIVE) Urine Amphetamines Screen Negative (NEGATIVE) Urine Benzodiazepines Screen Negative (NEGATIVE) Urine Cocaine Screen Negative (NEGATIVE) Urine Marijuana (THC) Screen Negative (NEGATIVE) Test 08/19/19 03:11 White Blood Count 8.1 K/UL (4.8-10.8) Red Blood Count 3.91 M/UL (4.20-5.40) L Hemoglobin 11.8 G/DL (12.0-16.0) L Hematocrit 35.4 % (37.0-47.0) L Mean Corpuscular Volume 91 FL (80-99) Mean Corpuscular Hemoglobin 30.1 PG (27.0-31.0) Mean Corpuscular Hemoglobin Concent 33.3 G/DL (32.0-36.0) Red Cell Distribution Width 13.1 % (11.6-14.8) Platelet Count 193 K/UL (150-450) Mean Platelet Volume 5.7 FL (6.5-10.1) L Neutrophils (%) (Auto) 77.8 % (45.0-75.0) H Lymphocytes (%) (Auto) 11.4 % (20.0-45.0) L Monocytes (%) (Auto) 10.2 % (1.0-10.0) H Eosinophils (%) (Auto) 0.1 % (0.0-3.0) Basophils (%) (Auto) 0.5 % (0.0-2.0) Sodium Level 137 MMOL/L (136-145) Potassium Level 3.1 MMOL/L (3.5-5.1) L Chloride Level 95 MMOL/L (98-107) L Carbon Dioxide Level 29 MMOL/L (21-32) Anion Gap 13 mmol/L (5-15) Blood Urea Nitrogen 7 mg/dL (7-18) Creatinine 1.1 MG/DL (0.55-1.30) Estimat Glomerular Filtration Rate 58.8 mL/min (>60) Glucose Level 149 MG/DL (74-106) H Uric Acid 4.9 MG/DL (2.6-7.2) Calcium Level 9.3 MG/DL (8.5-10.1) Phosphorus Level 2.7 MG/DL (2.5-4.9) Magnesium Level 2.2 MG/DL (1.8-2.4) Ferritin 169 NG/ML (8-388) Total Bilirubin 1.4 MG/DL (0.2-1.0) H Direct Bilirubin 0.4 MG/DL (0.0-0.3) H Gamma Glutamyl Transpeptidase 99 U/L (5-85) H Aspartate Amino Transf (AST/SGOT) 81 U/L (15-37) H Alanine Aminotransferase (ALT/SGPT) 45 U/L (12-78) Alkaline Phosphatase 81 U/L (46-116) Troponin I 0.048 ng/mL (0.000-0.056) C-Reactive Protein, Quantitative 5.5 mg/dL (0.00-0.90) H Pro-B-Type Natriuretic Peptide 9362 pg/mL (0-125) H Total Protein 8.9 G/DL (6.4-8.2) H Albumin 3.7 G/DL (3.4-5.0) Globulin 5.2 g/dL Albumin/Globulin Ratio 0.7 (1.0-2.7) L Triglycerides Level 42 MG/DL (30-150) Cholesterol Level 190 MG/DL (< 200) LDL Cholesterol 38 mg/dL (<100) HDL Cholesterol 140 MG/DL (40-60) H Cholesterol/HDL Ratio 1.4 (3.3-4.4) L Vitamin B12 Level 357 PG/ML (193-986) Folate 18.5 NG/ML (8.6-58.9) Thyroid Stimulating Hormone (TSH) 3.536 uiU/mL (0.358-3.740) Digoxin Level < 0.2 NG/ML (0.9-2.0) L Objective HEAD AND NECK: No JVD. LUNGS: Coarse rhonchi. CARDIOVASCULAR: Regular S1 and S2 with no gallop or murmur. ABDOMEN: Soft. EXTREMITIES: No pitting edema. Adrien Moreno MD Aug 19, 2019 08:15
[2019-08-19] MEDS ORDERED: Digoxin 0.125mg tab ORAL SCH (09:00)
[2019-08-19] MEDS ORDERED: Amiodarone 200mg tab ORAL SCH (09:00)
[2019-08-19] MEDS ORDERED: Omnipaque-300 100ml vial INJ PRN (10:00)
--- NOTE | 2019-08-19 11:53 | NUR ---
NURSE NOTES: Notify Dr. Sullivan that pt is complaing of abdominal pain 04/02. Awaiting response.
[2019-08-19 12:00] VITALS: BP 155/72
--- NOTE | 2019-08-19 12:00 | NUR ---
NURSE NOTES: Pt. complained of abd. pain. Assessed abd, round, soft, non tender to touch. Denied nausea however vomited. MD notifed.
--- NOTE | 2019-08-19 12:02 | NUR ---
Dr. Sullivan called to notify Dr. Brian of the patient's abdominal pain. Notified Dr. Brian. Awaiting
--- NOTE | 2019-08-19 12:03 | NUR ---
Dr Saez ordered [facility]. Order acknowledged and carried out.
[2019-08-19] MEDS: D5 1/2NS w/KCl 20mEq 1,000 ML IV SCH (12:24)
--- NOTE | 2019-08-19 13:21 | Consultation ---
History of Present Illness General Date patient seen: Aug 19, 2019 Chief Complaint: Dyspnea/Respdistress Reason for Consultation: abd pain Present Illness HPI 74 year old female admitted to [facility] for respiratory insufficiency was initially doing well talkative comfortable has history of cardiac problems on multiple medications was followed up as outpatient by physicians until few years ago where she became homeless and has been on the streets since. And admitted for care and management during admission identified to have acute respiratory insufficiency following to ACLS surgery called for immediate care and patient was seen at the bedside during ACLS for resuscitation potential lines potential surgical intervention. Patient unable to give any history during the time as she was rapidly deteriorating Allergies: Coded Allergies: CIPROFLOXACIN (Unverified Allergy, Unknown, 04/28/14) NITROFURANTOIN (Verified Allergy, Unknown, 02/11/16) PENICILLINS (Verified Allergy, Unknown, 02/11/16) Medication History Scheduled Albuterol Sulfate* (Albuterol Sulfate Hhn*), 2.5 MG HHN TIDRT Amiodarone Hcl* (Pacerone*), 200 MG ORAL DAILY, (Reported) Apixaban (Eliquis), 5 MG PO Q12HR, (Reported) Digoxin* (Digoxin*), 125 MCG ORAL DAILY, (Reported) Docusate Sodium* (Colace*), 100 MG ORAL THREE TIMES A DAY Folic Acid* (Folic Acid*), 2 MG ORAL DAILY, (Reported) Furosemide* (Lasix*), 40 MG ORAL DAILY, (Reported) Nystatin (Nystop), 1 APPLIC TOPIC BID, (Reported) Pantoprazole* (Pantoprazole*), 40 MG ORAL EVERY 12 HOURS, (Reported) Potassium Chloride* (K-Dur*), 40 MEQ ORAL DAILY, (Reported) Thiamine Hcl (Vitamin B1*), 100 MG ORAL DAILY Scheduled PRN Acetaminophen* (Acetaminophen 325MG Tablet*), 650 MG ORAL Q8H PRN for Mild Pain/ Temp > 100.5 Diphenhydramine Hcl* (Benadryl*), 25 MG ORAL Q6H PRN for Itching Hydrocodone Bit/Acetaminophen 5-325* ([place] 5-325*), 1 TAB ORAL Q6H PRN Ipratropium [place] 0.5MG/2.5ML (Ipratropium [place] 0.5MG/2.5ML), 0.5 MG HHN Q6H PRN for Shortness of Breath, (Reported) Nitroglycerin (Nitrostat), 0.4 MG SL Q5M X3 DOSES PRN for CHEST PAIN, (Reported) Temazepam* (Restoril*), 15 MG ORAL BEDTIME PRN for Insomnia, (Reported) Patient History Limited by: medical condition History Provided By: Medical Record, PMD Healthcare decision maker Resuscitation status Full Code Advanced Directive on File No Past Medical/Surgical History Past Medical/Surgical History: (1) Behavioral disorder (2) Pancytopenia (3) Dyslipidemia (4) Fatty liver (5) Back pain (6) Closed head injury (7) Hand fracture, right (8) Alcohol abuse (9) Alcohol abuse (10) Alcohol intoxication (11) Alcoholic liver damage (12) Influenza-like symptoms (13) Bronchitis (14) Eye problem (15) Conjunctivitis (16) Nausea, vomiting, and diarrhea (17) Vomiting and diarrhea (18) Alcoholic hepatitis (19) UTI (urinary tract infection) (20) Allergic reaction (21) Medication refill (22) Dehydration (23) Malnutrition (24) Weakness (25) Weak (26) Asthma (27) HTN (hypertension) (28) Alcohol abuse (29) Rash and other nonspecific skin eruption (30) Fever (31) Alcohol abuse (32) UTI (urinary tract infection) (33) CHF (congestive heart failure) (34) Rapid atrial fibrillation (35) Hypokalemia (36) Vomiting Review of Systems ROS Narrative cannot obtain given medical condition Physical Exam General Appearance: severe distress, other Lines, tubes and drains: peripheral HEENT: normocephalic, atraumatic, anicteric Neck: supple, normal inspection Respiratory/Chest: no respiratory distress, no accessory muscle use, decreased breath sounds, other Cardiovascular/Chest: arrhythmia Abdomen: soft, hypoactive bowel sounds, decreased bowel sounds, distended Extremities: normal inspection Skin Exam: warm/dry Neurologic: other Last 24 Hour Vital Signs Date Time Temp Pulse Resp B/P (MAP) Pulse Ox O2 Delivery O2 Flow Rate FiO2 08/19/19 09:10 70 08/19/19 09:00 Room Air 08/19/19 08:07 70 155/94 08/19/19 08:00 99.5 76 18 155/94 (114) 98 08/19/19 08:00 76 08/19/19 04:00 73 08/19/19 04:00 97.7 70 16 139/88 (105) 97 08/19/19 00:39 178/108 08/19/19 00:00 97.5 76 16 178/108 (131) 97 08/19/19 00:00 73 08/18/19 21:17 79 180/108 08/18/19 20:10 Room Air 08/18/19 20:00 76 08/18/19 20:00 97.5 79 16 180/108 (132) Intake and Output 08/18/19 08/19/19 19:00 07:00 Intake Total 350 ml 600 ml Output Total 500 ml Balance -150 ml 600 ml Intake Oral 300 ml IV Total 50 ml 600 ml Output Urine Total 500 ml # Voids 2 3 Laboratory Tests Test 08/18/19 16:20 08/18/19 21:00 08/18/19 21:40 08/19/19 03:11 Troponin I 0.036 ng/mL (0.000-0.056) 0.039 ng/mL (0.000-0.056) 0.048 ng/mL (0.000-0.056) Urine Color Pale yellow Urine Appearance Clear Urine pH 8 (4.5-8.0) Urine Specific [place] 1.010 (1.005-1.035) Urine Protein 1+ (NEGATIVE) H Urine Glucose (UA) Negative (NEGATIVE) Urine Ketones Negative (NEGATIVE) Urine Blood 2+ (NEGATIVE) H Urine Nitrite Negative (NEGATIVE) Urine Bilirubin Negative (NEGATIVE) Urine Urobilinogen Normal MG/DL (0.0-1.0) Urine Leukocyte Esterase Negative (NEGATIVE) Urine RBC 0-2 /HPF (0 - 2) Urine WBC 0-2 /HPF (0 - 2) Urine Squamous Epithelial Cells Occasional /LPF Urine Bacteria Occasional /HPF (NONE) Urine Opiates Screen Negative (NEGATIVE) Urine Barbiturates Screen Negative (NEGATIVE) Phencyclidine (PCP) Screen Negative (NEGATIVE) Urine Amphetamines Screen Negative (NEGATIVE) Urine Benzodiazepines Screen Negative (NEGATIVE) Urine Cocaine Screen Negative (NEGATIVE) Urine Marijuana (THC) Screen Negative (NEGATIVE) White Blood Count 8.1 K/UL (4.8-10.8) Red Blood Count 3.91 M/UL (4.20-5.40) L Hemoglobin 11.8 G/DL (12.0-16.0) L Hematocrit 35.4 % (37.0-47.0) L Mean Corpuscular Volume 91 FL (80-99) Mean Corpuscular Hemoglobin 30.1 PG (27.0-31.0) Mean Corpuscular Hemoglobin Concent 33.3 G/DL (32.0-36.0) Red Cell Distribution Width 13.1 % (11.6-14.8) Platelet Count 193 K/UL (150-450) Mean Platelet Volume 5.7 FL (6.5-10.1) L Neutrophils (%) (Auto) 77.8 % (45.0-75.0) H Lymphocytes (%) (Auto) 11.4 % (20.0-45.0) L Monocytes (%) (Auto) 10.2 % (1.0-10.0) H Eosinophils (%) (Auto) 0.1 % (0.0-3.0) Basophils (%) (Auto) 0.5 % (0.0-2.0) Sodium Level 137 MMOL/L (136-145) Potassium Level 3.1 MMOL/L (3.5-5.1) L Chloride Level 95 MMOL/L (98-107) L Carbon Dioxide Level 29 MMOL/L (21-32) Anion Gap 13 mmol/L (5-15) Blood Urea Nitrogen 7 mg/dL (7-18) Creatinine 1.1 MG/DL (0.55-1.30) Estimat Glomerular Filtration Rate 58.8 mL/min (>60) Glucose Level 149 MG/DL (74-106) H Uric Acid 4.9 MG/DL (2.6-7.2) Calcium Level 9.3 MG/DL (8.5-10.1) Phosphorus Level 2.7 MG/DL (2.5-4.9) Magnesium Level 2.2 MG/DL (1.8-2.4) Ferritin 169 NG/ML (8-388) Total Bilirubin 1.4 MG/DL (0.2-1.0) H Direct Bilirubin 0.4 MG/DL (0.0-0.3) H Gamma Glutamyl Transpeptidase 99 U/L (5-85) H Aspartate Amino Transf (AST/SGOT) 81 U/L (15-37) H Alanine Aminotransferase (ALT/SGPT) 45 U/L (12-78) Alkaline Phosphatase 81 U/L (46-116) C-Reactive Protein, Quantitative 5.5 mg/dL (0.00-0.90) H Pro-B-Type Natriuretic Peptide 9362 pg/mL (0-125) H Total Protein 8.9 G/DL (6.4-8.2) H Albumin 3.7 G/DL (3.4-5.0) Globulin 5.2 g/dL Albumin/Globulin Ratio 0.7 (1.0-2.7) L Triglycerides Level 42 MG/DL (30-150) Cholesterol Level 190 MG/DL (< 200) LDL Cholesterol 38 mg/dL (<100) HDL Cholesterol 140 MG/DL (40-60) H Cholesterol/HDL Ratio 1.4 (3.3-4.4) L Vitamin B12 Level 357 PG/ML (193-986) Folate 18.5 NG/ML (8.6-58.9) Thyroid Stimulating Hormone (TSH) 3.536 uiU/mL (0.358-3.740) Digoxin Level < 0.2 NG/ML (0.9-2.0) L Height (Feet): 5 Height (Inches): 2.00 Weight (Pounds): 119 Medications Current Medications Medications (Trade) Dose Ordered Sig/Homero Route PRN Reason Start Time Stop Time Status Last Admin Dose Admin Acetaminophen (Tylenol) 500 mg Q4H PRN ORAL Mild Pain/Temp > 100.5 08/18/19 16:00 09/17/19 15:59 08/18/19 23:37 Amiodarone HCl (Cordarone) 200 mg DAILY ORAL 08/19/19 09:00 09/18/19 08:59 08/19/19 09:09 Apixaban (Eliquis) 5 mg BID ORAL 08/18/19 18:00 09/17/19 17:59 08/19/19 08:07 Barium Sulfate (Readi-Cat 2) 450 ml NOW PRN ORAL Radiology Procedure 08/19/19 10:00 08/21/19 09:46 Clonidine HCl (Catapres Tab) 0.1 mg Q2H PRN ORAL sbp>170 08/18/19 12:45 09/17/19 12:44 08/19/19 00:39 Dextrose/ Electrolytes 1,000 ml @ 50 mls/hr Q20H IV 08/18/19 15:30 09/17/19 15:29 08/19/19 12:24 Digoxin (Lanoxin) 0.125 mg DAILY ORAL 08/19/19 09:00 09/18/19 08:59 08/19/19 09:10 Iohexol (OMNIPAQUE-300 100ml) 100 ml NOW PRN INJ Radiology Procedure 08/19/19 10:00 08/21/19 09:46 Metoclopramide HCl (Reglan) 10 mg Q6H PRN IVP Nausea & Vomiting 08/18/19 14:15 09/17/19 14:14 08/19/19 08:07 Metoprolol Tartrate (Lopressor) 25 mg EVERY 12 HOURS ORAL 08/18/19 21:00 09/17/19 20:59 08/19/19 08:07 Ondansetron HCl (Zofran) 4 mg Q6H PRN IVP Nausea & Vomiting 08/19/19 09:30 09/18/19 09:29 Pantoprazole (Protonix) 40 mg EVERY 12 HOURS IVP 08/18/19 21:00 09/17/19 20:59 08/19/19 08:08 Potassium Chloride (K-Dur) 20 meq TWICE A DAY ORAL 08/19/19 09:00 09/18/19 08:59 08/19/19 09:10 Assessment/Plan Problem List: (1) Vomiting ICD Codes: R11.10 - Vomiting, unspecified SNOMED: 630815270 (2) Nausea, vomiting, and diarrhea Assessment & Plan: abd pain n/v afib coded acls unable to resuscitate possible dissection, PE, rupture imaging held given condition Patient was complaining of abdominal pain upon admission and was deteriorating surgery was called patient was seen urgently unfortunately had already had respiratory demise and coded. Patient receiving ACLS and unfortunately was unable to resuscitate. All efforts were made fair amount time was spent with resuscitation but patient without pulse. PEA. Unfortunately patient . Thank you for let me participate in patient's care ICD Codes: R11.2 - Nausea with vomiting, unspecified; R19.7 - Diarrhea, unspecified SNOMED: 2377962 (3) CHF (congestive heart failure) ICD Codes: I50.9 - Heart failure, unspecified SNOMED: 89693267 (4) Fatty liver ICD Codes: K76.0 - Fatty liver SNOMED: 442640983 (5) Dehydration ICD Codes: E86.0 - Dehydration SNOMED: 09456994 (6) Hypokalemia ICD Codes: E87.6 - Hypokalemia SNOMED: 58817938 (7) Alcohol intoxication ICD Codes: F10.129 - Alcohol intoxication SNOMED: 53829129 (8) Fever ICD Codes: R50.9 - Fever, unspecified SNOMED: 997888200 (9) Alcohol abuse (10) Alcohol abuse ICD Codes: F10.10 - Alcohol abuse, uncomplicated SNOMED: 43525358 (11) Alcohol abuse ICD Codes: F10.10 - Alcohol abuse, uncomplicated SNOMED: 39534219 (12) Alcohol abuse ICD Codes: F10.10 - Alcohol abuse, uncomplicated SNOMED: 48077303 (13) Alcoholic liver damage ICD Codes: K70.9 - Alcoholic liver damage SNOMED: 49237159 (14) Back pain ICD Codes: M54.9 - Dorsalgia, unspecified SNOMED: 445771410 (15) Conjunctivitis ICD Codes: H10.9 - Unspecified conjunctivitis SNOMED: 5310598 (16) Alcoholic hepatitis (17) Influenza-like symptoms ICD Codes: R68.89 - Othergeneral symptoms and signs SNOMED: 312057712 (18) Pancytopenia ICD Codes: D61.818 - Pancytopenia SNOMED: 852843134 (19) Rash and other nonspecific skin eruption ICD Codes: R21 - Rash and other nonspecific skin eruption SNOMED: 584590481 (20) Allergic reaction ICD Codes: T78.40XA - Allergy, unspecified, initial encounter SNOMED: 781886102 (21) Malnutrition ICD Codes: E46 - Unspecified protein-calorie malnutrition SNOMED: 94519643 (22) Weakness ICD Codes: R53.1 - Weakness SNOMED: 56701617 (23) Weak ICD Codes: R53.1 - Weakness SNOMED: 12094955 (24) UTI (urinary tract infection) ICD Codes: N39.0 - UTI (urinary tract infection) SNOMED: 50501315 (25) UTI (urinary tract infection) ICD Codes: N39.0 - Urinary tract infection, site not specified SNOMED: 17056903 (26) Bronchitis ICD Codes: J40 - Bronchitis, not specified as acute or chronic SNOMED: 62881630 (27) Asthma ICD Codes: J45.909 - Unspecified asthma, uncomplicated SNOMED: 493851631 (28) HTN (hypertension) ICD Codes: I10 - HTN (hypertension) SNOMED: 07857660 (29) Dyslipidemia ICD Codes: E78.4 - Dyslipidemia SNOMED: 393881673 (30) Closed head injury ICD Codes: S09.90XA - Unspecified injury of head, initial encounter SNOMED: 099768345255 (31) Medication refill ICD Codes: Z76.0 - Encounter for issue of repeat prescription SNOMED: 237878155, 213033477 (32) Eye problem ICD Codes: H57.9 - Unspecified disorder of eye and adnexa SNOMED: 437445430 (33) Rapid atrial fibrillation ICD Codes: I48.91 - Unspecified atrial fibrillation SNOMED: 674002856 (34) Behavioral disorder (35) Hand fracture, right ICD Codes: S62.91XA - Unsp fracture of right wrist and hand, init for clos fx SNOMED: 61139824 (36) Vomiting and diarrhea ICD Codes: R11.10 - Vomiting, unspecified; R19.7 - Diarrhea, unspecified SNOMED: 234315109 Oscar Leos Aug 19, 2019 13:21
--- NOTE | 2019-08-19 13:25 | NUR ---
Code Blue Terminated by ER , Dr. Coles. No ROS, No Pulse, No Respiration, Pupils fixed & Dilated. Dr. Sullivan Notified by Primary RN.
--- NOTE | 2019-08-19 13:25 | NUR ---
NURSE NOTES: UPON MAKING ROUND, WENT TO THE PATIENT'S ROOM, PATIENT WAS LETHARGIC, HR AT 50 ON SPOTTER AND TRENDING DOWN. RAPID RESPOND INITIATED UPON ASSESSING PATIENT, PATIENT WAS PULSELESS, UNABLE TO OBTAINED PULSE, CODE BLUE INITIATED; SEE CODE BLUE FOR DETAILS. NOTIFIED ONE LEGACY PICKLING OPERATOR' WAS ALSO NOTIFIED.
--- NOTE | 2019-08-19 13:40 | Emergency Room Report ---
History of Present Illness General Chief Complaint: Dyspnea/Respdistress Source: Medical Record, PMD Present Illness Allergies: Coded Allergies: CIPROFLOXACIN (Unverified Allergy, Unknown, 04/28/14) NITROFURANTOIN (Verified Allergy, Unknown, 02/11/16) PENICILLINS (Verified Allergy, Unknown, 02/11/16) Patient History Now: No Nursing Documentation-PMH Hx Cardiac Problems: Yes - AFIB Hx Hypertension: Yes Hx Pacemaker: No Hx Asthma: Yes Hx Diabetes: No Hx Cancer: No Hx Gastrointestinal Problems: No Hx Neurological Problems: Yes Hx Dizziness: Yes Hx Weakness: Yes Physical Exam Vital Signs Date Time Temp Pulse Resp B/P (MAP) Pulse Ox O2 Delivery O2 Flow Rate FiO2 08/18/19 09:48 98.4 150 22 130/80 (97) 98 08/18/19 10:32 Room Air Procedures CPR/Code Blue CPR/Code Blue Narrative See MDM section of this note for full details. See nursing documentation for medications given. Intubation Intubation : Consent: Emergent Intubation Method: orotracheal Tube Size (cm): 7.5 Breath Sounds after Intubation: equal, right greater than left, left greater than right Intubation Complications: no complications Complications: None Medical Decision Making Diagnostic Impression: Primary Impression: Rapid atrial fibrillation Additional Impressions: CHF (congestive heart failure) Vomiting ER Course I was called to the patient's bedside for a CODE BLUE. The patient had been admitted the day before for atrial fibrillation. Had been doing well and was found conversant in no acute distress this morning by admitting physician and nursing staff. She had complained of some abdominal pain earlier without vomiting. KUB, CT scan as well as general surgery and GI consults were placed. Rapid response was called when the patient was found bradycardic and unconscious. Shortly after a CODE BLUE was initiated. I arrived with chest compressions ongoing. The patient had received epinephrine. Intubated for airway protection without difficulty under direct visualization on first attempt. Bilateral chest rise and symmetrical breath sounds. Continued with ACLS protocols giving epinephrine and bicarb as well cardiac compressions. Patient remained PEA arrest during the entire code. Given her admission for atrial fibrillation and lack of anticoagulation as the patient has been homeless for several years thromboembolic events or higher on the differential. A TPA bolus and infusion were given. There is no change in the patient's condition. Patient was coded for approximately 1 hour in total. A bedside cardiac ultrasound was performed by me showing no activity with swirl sign in the ventricles. Patient was pronounced at 1325. Admitting physician and wine merchant were notified both during the code and after. They agreed with the interventions performed. Had attempted to contact family but there was no answer. Last Vital Signs Date Time Temp Pulse Resp B/P (MAP) Pulse Ox O2 Delivery O2 Flow Rate FiO2 08/19/19 09:10 70 08/19/19 09:00 Room Air 08/19/19 08:07 155/94 08/19/19 08:00 99.5 18 98 Disposition: ADMITTED INPATIENT Condition: Serious Referrals: Arturo Sullivan MD (Family) NON PHYSICIAN (PCP) Maikel Chairez MD Aug 19, 2019 13:39
[2019-08-19] MEDS ORDERED: Alteplase 100mg Inj ONE (14:20)
--- NOTE | 2019-08-19 14:30 | Consultation ---
DATE OF CONSULTATION: 08/19/2019 GASTROENTEROLOGY CONSULTATION CONSULTING PHYSICIAN: Andreas Brian M.D. CHIEF COMPLAINT: I was asked to see this patient by Dr. Arturo Sullivan for evaluation of vomiting. HISTORY OF PRESENT ILLNESS: The patient is a pleasant 74-year-old woman with multiple medical problems, who was brought into the hospital due to nausea, vomiting, and atrial fibrillation. The patient has had a previous history of atrial fibrillation and in the emergency room, she was noted to be rapid heart rate. She has been treated by Cardiology with amiodarone and other medications and denies any chest pain. She does however complain of abdominal discomfort, which has been going on for about a week. She also complains of about a week of nausea and vomiting. She has no hematemesis or melena. She has no diarrhea. She has had no surgeries on her abdomen. She does have some heartburn. She has had an endoscopy many years ago, but never had a colonoscopy. PAST MEDICAL HISTORY: History of asthma, hypertension, arthritis. FAMILY HISTORY: Positive for gastric cancer in her sister. SOCIAL HISTORY: The patient does not smoke, but drinks 2 to 3 beers a day. REVIEW OF SYSTEMS: Otherwise negative. PHYSICAL EXAMINATION: GENERAL: This is a pleasant woman seen in her room, in no distress. HEENT: Normocephalic, atraumatic. Sclerae anicteric. Oropharynx clear. NECK: Supple. CHEST: Revealed coarse breath sounds. CARDIOVASCULAR: Revealed a regular rate. ABDOMEN: Soft and minimally tender diffusely. LABORATORY DATA: Noted. ASSESSMENT: This patient has a week or so of nausea, vomiting, and abdominal discomfort of unclear etiology. The patient has had a no surgeries on her abdomen to suggest the possibility of bowel obstruction. However given her liver test abnormalities and her vomiting, I would perform a CT scan of the abdomen and pelvis to both evaluate the liver as well as the bowel. In the meantime, she can be given antiemetics and acid cullen. Should her symptoms persist, further evaluation with endoscopy would be indicated. The patient should also undergo a colonoscopy at a later date for screening purposes. RECOMMENDATIONS: 1. Clear liquid diet as tolerated. 2. Check CT scan of the abdomen and pelvis. 3. Protonix. 4. Check hepatitis serologies. 5. Further recommendations to follow. Thank you for asking me to participate in the care of this patient. Andreas Brian M.D. DR: TERRY JOB#: [id number] CC:
--- NOTE | 2019-08-20 00:45 | History and Physical Report ---
DATE OF ADMISSION: 08/18/2019 HISTORY OF PRESENT ILLNESS: The patient came in with atrial fibrillation and admitted for atrial fibrillation and congestive heart failure. The patient was coming from the street, was homeless and was not taking any medications. Basically, the patient also complained of a chest pain for three days, came in with rapid atrial fibrillation with heart rate in the 190s, converted to sinus and heart rate went below 100 with IV Cardizem in the emergency room. The patient also got magnesium. Troponin was within normal limits initially, showed mild congestion on the chest x-ray. ER doctor admitted the patient to the telemetry unit for those reasons. Again, the patient was homeless, in the street, noncompliant, not taking any medication and the heart rate went below 100 with the Cardizem. Early in the morning when I went to see the patient, the patient was vomiting but was not in any acute distress, was talking in full sentences and in not any distress. She was also complaining of abdominal pain and shortness of breath as well as coughing. I asked if she had any melanotic stool or bright red per rectum, she said no. She denied melena. She denied any rectal bleeding. She denied any constipation. Did have regular bowel movements. The patient also denied any fever, chills. Denied orthopnea. Denied history of alcohol abuse. The patient also denied any leg swelling as well and denied any leg pain. The patient said that abdominal pain was going on for about a week. The patient also has a chronic back pain and the patient also had gangrene versus cyanotic toe that was very dried up and it looked very chronic. It was not wet gangrene at all. It had all dried up on the toes, especially on the right and it was scabbed over. The patient had very poor hygiene. The patient was also complaining of some wheezing, has history of smoking. Denied any hematemesis and denied any coffee-grounds emesis as well. When I saw the emesis, it was mild and it was not coffee-ground, it was yellow to clear color. PAST MEDICAL HISTORY: 1. Atrial fibrillation. 2. Chronic back pain. MEDICATIONS: None. FAMILY HISTORY: Noncontributory. No history of heart disease in the family. PAST SURGICAL HISTORY: Denied surgeries. SOCIAL HISTORY: She has history of smoking. No history of alcohol abuse. She is homeless. REVIEW OF SYSTEMS: HEENT: Headache. RESPIRATORY: Reported shortness of breath and wheezing and mild coughing off and on. GASTROINTESTINAL: The patient complains of abdominal pain for a week. No hematemesis. Just recent vomiting since the patient came to the hospital was when the vomiting starting in the morning. EXTREMITIES: Denies pain in the lower extremities. Does have chronic back pain that is getting worse. CENTRAL NERVOUS SYSTEM: Denies changes in speech pattern. PHYSICAL EXAMINATION: VITAL SIGNS: Temperature is 97, pulse is 78, and blood pressure is 130/64. HEENT: PERRLA. NECK: Supple. No lymphadenopathy. CHEST: Clear to auscultation. CARDIOVASCULAR: Irregularly irregular. No murmurs. GASTROINTESTINAL: Soft. Mild epigastric tenderness. No rebound. Abdomen is soft. Positive bowel sounds. Good bowel sounds. Active bowel sounds. No organomegaly. EXTREMITIES: No edema. The patient has dried up gangrene especially on the right toe. Dorsal pedis pulses are present in both lower extremities. Moves all extremity. Has generalized weakness. LABORATORY DATA: Labs were essentially normal. Hemoglobin was normal. EKG showed initially atrial fibrillation with rapid ventricular response and a follow-up EKG showed sinus conversion. ASSESSMENT AND PLAN: 1. Congestive heart failure. 2. Mild congestion on the chest x-ray. 3. Atrial fibrillation with rapid ventricular response, converted to sinus. 4. Coughing. 5. Shortness of breath. 6. Chest pain. 7. Dry toe gangrene. 8. Abdominal pain and vomiting. No hematemesis. No melena or gastrointestinal bleeding. I had asked Dr. Tae Woo, Dr. Moreno, Dr. Scott, Dr. Brian, Dr. Elliott Treviño. I had already consulted them to see the patient for the above-mentioned diagnoses and treatment and CT of abdomen and pelvis was ordered because of the abdominal pain and vomiting. We are awaiting for the patient to get the CT scan done to see what we can find on it. Dr. Moreno is aware, has already seen the patient. The patient is not in any distress and is stable at this point. Vitals have improved. We will monitor the patient very closely on the monitor bed. Arturo Sullivan M.D. DR: VANDANA JOB#: [id number] CC:
--- NOTE | 2019-08-20 10:34 | Discharge Summary ---
Discharge Summary Discharge Summary _ SUMMARY DATE OF ADMISSION: 08/18/2019 DATE OF EXPIRATION: 08/19/2019 REASON FOR ADMISSION: 74 years old female with past medical history of atrial fibrillation , not on anticoagulation, congestive heart failure, coronary artery disease, asthma, alcohol abuse , presented for evaluation due to chest pain and vomiting. Patient homeless and was reported not taking any medication. Patient was admitted in the past for atrial fibrillation. Patient reported midsternal chest pain and lightheadedness for the past 3 days. In the morning she vomited and after that she decided to come to emergency room for evaluation. She denied cough or shortness of breath. She reported feeling weak and fatigued. No fever or chills. No diarrhea. Patient reported history of alcohol abuse , but denied recent history of the drug or alcohol abuse. Upon evaluation patient was tachycardic and tachypneic , heart rate was 150. EKG revealed atrial fibrillation with rapid ventricular response. Laboratory work-up revealed no leukocytosis ,hemoglobin 10.8, hematocrit 32.1, platelet count 184. Magnesium 1.2 . Stable renal parameters. Glucose 191. Total bilirubin 1.3, direct direct bilirubin 0.5. AST 86 , ALT 34. Troponin 0.028, pro BNP 2195. Lipase 149. Chest x-ray demonstrated no acute cardiopulmonary pathology. Noted cardiomegaly and ectatic aorta. Bones were osteopenic. Old fracture of the right femoral neck. Urine toxicology screen was negative. Patient was treated with IV Cardizem and IV metoprolol , loaded with oral Cardizem. Patient started on IV fluids. Patient started on magnesium replacement . Patient subsequently admitted to telemetry floor for further management. CONSULTANTS: loading rack supervisor Dr. Graff GI specialist Dr. Brian straight knife cutter machine Dr. Scott surgery [facility] COURSE: Patient admitted to monitored floor. Heart rate was controlled with amiodarone and metoprolol along with digoxin . Anticoagulation with Eliquis was resumed. Blood pressure was managed with beta-cullen. Serial troponin were negative. GI specialist evaluated patient due to nausea, vomiting and abdominal discomfort for 1 week of unclear etiology. Patient had no prior surgery on the abdomen to suggest the possibility of bowel obstruction. Given her liver test abnormality and her vomiting , CT scan of the abdomen and pelvis was ordered to evaluate liver and bowels. Antiemetic provided as needed. Patient started on GI prophylaxis with PPI. Per GI specialist, consider endoscopy if symptoms persist. GI specialist recommended screening colonoscopy, which could be done as outpatient. Patient started on clear liquid diet as tolerated. Hepatitis panel at the time of this dictation still pending. Initially rapid response was called on 08/19 after patient was found bradycardic and unconscious . Shortly after CODE BLUE was initiated as per ACLS protocol. Patient remained in PEA arrest during the entire code. Given her admission for atrial fibrillation and lack of anticoagulation in the past , since patient was homeless for several years and noncompliant, thromboembolic event was high on differential. Patient received TPA bolus and infusion. No change in patient condition was observed. Patient was coded multiply times, total of 1 hour. Bedside cardiac ultrasound performed and showed no activity of the ventricles. Patient subsequently was pronounced at 13: 25 on 08/19/2019. Cause of : cardiopulmonary arrest FINAL DIAGNOSES: Status post cardiopulmonary arrest Atrial fibrillation with rapid ventricular response Hypertension History of congestive heart failure with diastolic dysfunction Hypomagnesemia DJD Asthma Anemia History of alcohol abuse Dehydration Nausea vomiting and abdominal discomfort hypokalemia Fatty liver I have been assigned to dictate discharge summary for this account. I was not involved in the patient's management. Jadyn Chowdary NP Aug 20, 2019 10:33
--- NOTE | 2019-08-20 14:57 | NUR ---
POST DC [employer] SUPER[employer]OR NOTE RENÉ attempted to locate family. RENÉ attempted to call pt's sister Carolyn Kenyon [phone] but the call was not answered w/o vm option. RENÉ attempted to call possible numbers of Carolyn Kenyon [phone] (ringing w/o vm option), (number not in service), (ringing w/o vm option), (ringing w/o vm option). RENÉ spoke w/ SHAYLA Nichols from [facility] [phone]. Per Magdalena, Rc is no longer working there and Magdalena was unsure if she can release the information w/o consent. RENÉ also attempted to call possible son of Carolyn Kenyon, Luisito Robbins [phone] and left a vm for call back if this is the correct number. Signed: 08/20/19 at 1503 by NISHA MERIRTT <Co-Signature Required>
--- NOTE | 2019-08-20 15:48 | NUR ---
CASE MANAGEMENT: INITIAL REVIEW 74YR OLD FEMALE FROM STREET CC: DYSPNEA/ RESP. DISTRESS SI:CHF . VOMITING . RAPID ATRIAL FIBRILLATION 98.4 150 22 130/80 98% ON RA BNP 2195 H/H 10.8/32.1 BG 191 TBIL/D.MECCA 1.3/0.5 AST 86 IS: IVF NS BOLUS X1 IV CARDIZEM X2 IV LABETALOL X1 IV MAGNESIUM SULFATE X4 BAGS CHEST V-EVL-Itbyifcjwnva; Aorta ectatic \: 2E TELE UNIT PLAN: CT HEAD TROP EVAL 2DECHO EKG
== END 2019-08-19 18:06 | disposition expired | DRG 309 ==
LOC: EMR 10:18 → EDBEDREQ 12:20 → 2E 12:41
DX: I48.0 Paroxysmal atrial fibrillation (principal); I50.32 Chronic diastolic (congestive) heart failure; E46 Unspecified protein-calorie malnutrition; I96 Gangrene, not elsewhere classified; I11.0 Hypertensive heart disease with heart failure; Z88.1 Allergy status to other antibiotic agents; Z88.0 Allergy status to penicillin; Z88.8 Allergy status to other drugs, medicaments and biological substances; Z59.0 Homelessness; R07.9 Chest pain, unspecified; R10.9 Unspecified abdominal pain; R11.10 Vomiting, unspecified; M85.80 Other specified disorders of bone density and structure, unspecified site; E83.42 Hypomagnesemia; M19.90 Unspecified osteoarthritis, unspecified site; J45.909 Unspecified asthma, uncomplicated; D64.9 Anemia, unspecified; E86.0 Dehydration; E87.6 Hypokalemia; K76.0 Fatty (change of) liver, not elsewhere classified; F10.11 Alcohol abuse, in remission; F17.200 Nicotine dependence, unspecified, uncomplicated; G89.29 Other chronic pain; M54.9 Dorsalgia, unspecified; H10.9 Unspecified conjunctivitis; K70.10 Alcoholic hepatitis without ascites; E78.5 Hyperlipidemia, unspecified; I25.10 Atherosclerotic heart disease of native coronary artery without angina pectoris
CPT/HCPCS: 36415; 71045; 80053; 80061; 80162; 80307; 81003; 82248; 82607; 82728; 82746; 82977; 83690; 83735; 83880; 84100; 84443; 84484; 84550; 85007; 85025; 85610; 85730; 86140; 87081; 93005; 93306; 96361; 96365; 96366; 96375; 99291; J2765; J7030; J8499